=== PATIENT | female | born 1950 | race Caucasian/White ===

== ENCOUNTER 2017-01-14 18:51 | Inpatient (IN) ==
[2017-01-14] MEDS ORDERED: PROPOFOL 1,000 MG/100 ML BOTTLE IV ONE (18:55)
[2017-01-14] MEDS ORDERED: VECURONIUM 10 MG VIAL IV ONE (18:58)
[2017-01-14] MEDS ORDERED: VECURONIUM 10 MG VIAL IV STA (19:01)
[2017-01-14] MEDS ORDERED: DILTIAZEM 50 MG/10 ML VIAL IV STA (19:19)
--- NOTE | 2017-01-14 19:21 | Emergency Department Note ---
IDaniel Kasabria, am scribing for, and in the presence of, Lauren Ye DO 19 :19. IEphraim Debra, DO, personally performed the services described in this documentation, ascribed by Dawit Sanchez in my presence, and it is both accurate and complete 920 . Arrival - Arrival Chief Complaint: Shortness of Breath Stated Complaint: sob ED Nursing Triage Note: pt brought in to [facility] for resp distress. pt went into resp failure in their er and was intubated with a 7.0 ett and 24 at lip Mode of Arrival: Stretcher Limitations: No Limitations Source: Patient Time Seen by Provider: 01/14/17 18:59 - History of Present Illness HPI Narrative: This is a 66 y/o white female presenting to the ED with c/o respiratory distress. She stated to ER nurses that she had been short of breath for one week. Pt went into respiratory failure in the [place] ER and was intubated. Pt is currently sedated. She has a PMHx of HTN, Atrial fibrillation, COPD, CHF, and cardiac disease. She was seen at [facility]. Consistency: constant Severity: moderate Allergies/Adverse Reactions: Allergies Allergy/AdvReac Type Severity Reaction Status Date / Time Iodinated Contrast Media - Allergy ITCHING Verified 01/14/17 19:10 IV Dye moxifloxacin Allergy ITCHING Verified 01/14/17 19:10 Penicillins Allergy ITCHING Verified 01/14/17 19:10 Sulfa (Sulfonamide Allergy ITCHING Verified 01/14/17 19:10 Antibiotics) sulfamethoxazole Allergy ITCHING Verified 01/14/17 19:10 trimethoprim Allergy ITCHING Verified 01/14/17 19:10 Review of System - Review of System ROS unobtainable: due to endotracheal tube (limited ) 12 point system: reviewed and no additional remarkable complaints except as stated - Review of System Constitutional: Absent: chills, fever, weakness Eyes: Absent: vision change Respiratory: Present: respiratory distress Gastrointestinal: Absent: nausea, vomiting Genitourinary female: Absent: dysuria Skin: Present: other (poor hygiene ). Absent: rash Hematological/Lymphatic: Absent: easy bleeding Allergic/Immunologic: Absent: facial swelling Medical,Surgical,& Family Hx - Social History Smoking Status: Unknown if ever smoked Frequency of Alcohol Use: Unknown Type of Drug Use: Unknown Exam Vital Signs: Vital Signs Temperature 98.1 F 01/14/17 18:52 Pulse Rate 86 01/14/17 19:29 Respiratory Rate 14 01/14/17 19:29 Blood Pressure 101/78 01/14/17 19:29 O2 Sat by Pulse Oximetry 92 L 01/14/17 19:29 - General Exam limited due to: other (sedated and intubated ) General appearance: alert, in no apparent distress, other (poor hygiene ) - Head Head exam: Present: atraumatic, normocephalic, normal inspection - Eye Eye exam: Present: normal appearance, PERRL, EOMI - ENT ENT exam: Present: normal exam, normal oropharynx, mucous membranes moist, TM's normal bilaterally, normal external ear exam - Neck Neck exam: Present: normal inspection, full ROM, trachea midline. Absent: tenderness - Chest Chest inspection: Present: normal inspection, symmetric chest wall rise. Absent : tenderness - Respiratory Respiratory exam: Present: normal lung sounds bilaterally - Cardiovascular Cardiovascular exam: Present: regular rate, normal rhythm, normal heart sounds - Abdominal Exam Abdominal exam: Present: soft, normal bowel sounds. Absent: distention, tenderness - Extremities Exam Extremities exam: Present: normal inspection, full ROM, normal capillary refill. Absent: tenderness, pedal edema, calf tenderness - Back Exam Back exam: Present: normal inspection, full ROM. Absent: tenderness - Neurological Exam Neurological exam: Present: alert, oriented X3, CN II-XII intact, normal gait, reflexes normal - Psychiatric Psychiatric exam: Present: normal affect, normal mood - Skin Skin exam: Present: warm, dry, intact, normal color Course Course Narrative: spoke with DR Anderson. who agrees to admission. Results - EKG EKG results: interpreted by ERMD EKG shows: atrial fibrillation Disposition Clinical Impression: Acute exacerbation of chronic obstructive airways disease Disposition: Still a Patient Condition: Stable Time of Disposition: 19:37
[2017-01-14] MEDS ORDERED: ALBUTEROL 2.5 MG/3 ML NEB RESP TX PRN ×2 (19:39→23:01)
--- NOTE | 2017-01-14 19:54 | Hospitalist History & Physical ---
Assessment and Plan (1) Acute respiratory failure Status: Acute Assessment and plan: This is a patient who presented with acute respiratory failure of unknown etiology she certainly has a COPD exacerbation I have no data available to make any further determination was going on have no available chest x-ray and no other testing will begin a workup looking for cardiac disease who rule out MS we will look for color-flow venous Dopplers will proceed with chest x-ray and arterial blood gases. Patient does currently remain hemodynamically stable Current Visit: Yes History of Present Illness Chief complaint: acute respiratory failure History of present illness: Ms. Rivers is a 66 year old female whose never been to this facility before who presents with several day history of some allergy symptoms yesterday she started feeling poorly this morning she went back to bed cauterized in the semen since she needed to go to the hospital she couldn't get down the stairs when the EMS people arrived her house she was having difficulty breathing. She couldn't walk very anxious according to the . When she arrived at [facility] she had to be intubated. She can give no further history her says that she wasn't really complaining of chest pain or chest tightness and had not had any fever or other unusual complaints other than she was a little bit more short of breath than usual. Currently there is no lab or other tests done here in [facility] in reviewing the record from the outside white count was 8000 hematocrit 39 platelet count 103,000 had a left shift with 76% neutrophils arterial blood gases as seen on the ventilator are 10/26/1939 57.21B UN is 17.3 creatinine 1.1 there are test are normal albumin is 3.6 EKG shows atrial fibrillation with left bundle branch block Allergies Allergy/AdvReac Type Severity Reaction Status Date / Time Iodinated Contrast Media - Allergy ITCHING Verified 01/14/17 19:10 IV Dye moxifloxacin Allergy ITCHING Verified 01/14/17 19:10 Penicillins Allergy ITCHING Verified 01/14/17 19:10 Sulfa (Sulfonamide Allergy ITCHING Verified 01/14/17 19:10 Antibiotics) sulfamethoxazole Allergy ITCHING Verified 01/14/17 19:10 trimethoprim Allergy ITCHING Verified 01/14/17 19:10 Medical,Surgical,& Family Hx - Medical History Cardio: History of: Cardiac Dysrhythmia (atrial fibrillation), CHF, Cardiovascular Problems Endocrine: History of: Diabetes Mellitus (IDDM) Respiratory: History of: COPD - Surgical History Surgical History: noncontributory - Family History Family History: Reports;: Family Hypertension - Social History Smoking Status: Unknown if ever smoked Frequency of Alcohol Use: Unknown Type of Drug Use: Unknown ROS unobtainable: due to endotracheal tube Exam - Constitutional Vitals: Period Temp Pulse Resp BP Sys/Johnson Pulse Ox Last 24 Hr 98.1 F 80-132 14-14 101-128/77-91 91-100 Exam: Constitutional: Patient in no apparent distress. ET tube in place Eyes: Conjunctivae and lids are normal Pupils equal round react to light and accommodation irises are normal HEENT: External ears and nose without lesions masses or scarring Oropharynx without erythema exudates or thrush Neck is supple without masses no jugular venous distention Lungs: Lungs are clear to auscultation and resonant percussion Cardiovascular: Heart auscultation regular rate and rhythm without murmur rub or gallop PMI in the midclavicular line by palpation carotid arteries 2+ without bruits bowel abdomen: Bowel sounds normoactive no masses no rebound or regular tenderness no organomegaly Lymphatic: No anterior posterior cervical or axillary adenopathy Musculoskeletal: No active synovitis no malalignment of the joints good range of motion of upper and lower extremities Skin : normal to inspection and palpation Neurologic: Cranial nerves II through XII intact motor sensory intact DTRs 2+ negative cerebellar signs Psychiatric: Oriented to person place and time normal memory normal mood and affect normal judgment
[2017-01-14] MEDS ORDERED: ENOXAPARIN 40 MG/0.4 ML SYRINGE SUBCUT SCH (20:00)
[2017-01-14 20:24] LABS: ABG Base Excess 1.7 MMOL/L (-2.5-2.5); ABG HCO3 24.1 MMOL/L (20-26); ABG Oxygen Saturation 98.2 % (95-100); ABG PH 7.508 (7.35-7.45); ABG PO2 116.6 MM HG (80-95)
--- NOTE | 2017-01-14 20:41 | Ultrasound Report ---
US venous doppler LE BI Indication: Respiratory failure. Comparison: None. Technique: Grayscale, spectral, and color Doppler interrogation of the bilateral lower extremity veins was performed. Augmentation and compression was performed. Findings: Grayscale, color Doppler, and pulsed Doppler evaluation of the veins of the bilateral lower extremity demonstrate no evidence of deep venous thrombosis. IMPRESSION: No evidence of deep venous thrombosis in the bilateral lower extremity. PROCEDURE INTERPRETED AT [facility] DEPARTMENT OF RADIOLOGY Final Report Signed by: Dr Marcial Lr
[2017-01-14] MEDS ORDERED: FUROSEMIDE 40 MG/4 ML VIAL IV STA (20:46)
--- NOTE | 2017-01-14 20:48 | XRay Report ---
XR chest 1V portable Indication: Ventilator Comparison: Chest x-ray dated January 14, 2017 at 4:48 PM Technique: Single frontal view of the chest Findings: Endotracheal tube stable in configuration. Continued cardiomegaly and prominence of the superior mediastinum. Continued coarsened bilateral interstitial lung markings which are nonspecific but may reflect interstitial pulmonary edema. Osseous and surrounding soft tissue structures appear grossly unchanged. IMPRESSION: No significant interval change. PROCEDURE INTERPRETED AT [facility] DEPARTMENT OF RADIOLOGY Final Report Signed by: Dr Marcial Lr
[2017-01-14 21:06] LABS: Troponin I Only 0.362 NG/ML (0.00-0.045)
[2017-01-14] MEDS: PROPOFOL 1,000 MG/100 ML BOTTLE IV SCH (21:10)
--- NOTE | 2017-01-14 22:55 | CT Report ---
CT head/brain wo con Indication: Respiratory failure, AMS Comparison: None Technique: Multiple axial tomographic images of the brain were obtained without the use of intravenous contrast. Findings: Midline structures are nondisplaced. There is no acute intracranial hemorrhage or evidence of hydrocephalus. Mild global volume loss present. Mild periventricular and subcortical hypoattenuation noted which is nonspecific but consistent with chronic microvascular ischemic change. Paranasal sinuses and mastoid air cells are clear. IMPRESSION: No acute intracranial abnormality demonstrated. PROCEDURE INTERPRETED AT [facility] DEPARTMENT OF RADIOLOGY Final Report Signed by: Dr Marcial Lr
[2017-01-14] MEDS ORDERED: ONDANSETRON 4 MG/2 ML VIAL IV PRN (23:01)
[2017-01-14] MEDS: PANTOPRAZOLE 40 MG VIAL IV SCH (23:27)
[2017-01-14] MEDS: methylPREDNISolone SOD SUC 125 MG/2 ML VIAL IV SCH (23:28)
[2017-01-14] MEDS: LACTATED RINGERS 1,000 ML IV SCH (23:38)
[2017-01-15] MEDS: ALBUTEROL/IPRATROPIUM 3 ML NEB RESP TX SCH ×4 (00:06→19:14)
[2017-01-15] MEDS: cefTRIAXone 1,000 MG in SODIUM CHLORIDE 0.9% 100 ML IV SCH ×2 (00:15→22:10)
[2017-01-15 00:44] LABS: Troponin I Only 0.356 NG/ML (0.00-0.045)
[2017-01-15 02:03] LABS: Apearance,Urine CLEAR (Clear); Bilirubin,Urine Negative (Negative); Blood, Urine Negative (Negative); Glucose,Urine (UA) Negative (Negative); Hyaline Casts,Urine 1 /LPF (0-3); Ketones,Urine Negative (Negative); Mucus,Urine Occasional /LPF (Occasional); Nitrite,Urine Negative (Negative); Protein,Urine Negative; Urine Color Straw (Yellow); Urine Specific Gravity 1.005 (1.001-1.035); Urine Urobilinogen < 2.0 EU/DL (0.2-1.0)
[2017-01-15 02:56] LABS: Allen Test Positive; Pt O2 Delivery Device Ventilator
[2017-01-15 02:57] LABS: ABG Base Excess 4.1 MMOL/L (-2.5-2.5); ABG HCO3 26.5 MMOL/L (20-26); ABG Oxygen Saturation 97.1 % (95-100); ABG PCO2 32.7 MM HG (35-48); ABG PH 7.527 (7.35-7.45); ABG TCO2 27.5 MMOL/L (23-27)
[2017-01-15] MEDS: PROPOFOL 1,000 MG/100 ML BOTTLE IV SCH ×5 (03:15→20:25)
--- NOTE | 2017-01-15 05:48 | EKG Report ---
Stationary ECG Study [facility] ER Test Date: 01/14/2017 8:01:46 PM Pat Name: MEERA ANTOINE Department: Room: 116 Gender: F Community Health Nurse: : 1950 Requested by: Lauren Ye Order Number: [id number] Reading MD: ISABELLE VALENTINE Intervals [place] Rate: 59 P: 43 ND: 174 QRS: 23 QRSD: 154 T: 142 QT: 464 QTc: 463 Interpretive Statements SINUS RHYTHM WITH OCCASIONAL SUPRAVENTRICULAR PREMATURE COMPLEXES LEFT BUNDLE BRANCH BLOCK Electronically Signed On 01-16-17 18:49:54 CDT by ISABELLE VALENTINE [email or web address]
[2017-01-15] MEDS: methylPREDNISolone SOD SUC 125 MG/2 ML VIAL IV SCH ×3 (06:10→22:10)
[2017-01-15] MEDS: NOREPINEPHRINE 8 MG in SODIUM CHLORIDE 0.9% 242 ML IV SCH ×2 (06:10→22:11)
[2017-01-15 07:07] LABS: Basophils % 0.1 % (0.0-0.8); Hematocrit 36.3 VOL% (35.7-47.0); Hemoglobin 11.9 GM/DL (12.0-16.0); Immature Granulocytes % 0.7 %; Immature Granulocytes Absolute 0.06 #; Lymphocytes # 0.5 10*3/uL (1.4-4.0); Lymphocytes % 5.9 % (21.3-54.2); Mean Corpuscular HGB Conc 32.8 GM/DL (32-36); Mean Corpuscular Hemoglobin 30 PG (27-34); Mean Corpuscular Volume 92.4 FL (87-102); Mean Platelet Volume 11.3 FL (9.6-12.0); Monocytes # 0.2 10*3/uL (0.11-0.8); Monocytes % 2.3 % (1.7-12.7); Neutrophils # 7.6 10*3/uL (1.4-7.4); Platelet Count 90 T/CUMM (130-400); Red Blood Count 3.93 MC/CUMM (3.8-5.5); White Blood Count 8.4 T/CUMM (4-12)
--- NOTE | 2017-01-15 07:17 | XRay Report ---
Portable chest Date: 01/15/2017 Clinical history: Shortness of breath Comparison: 01/14/2017 Technique: Portable AP sitting chest Findings: Stable cardiomegaly and endotracheal tube. Reduced diffuse parenchymal findings in the right lung with similar minimally progressive findings in the left mid-lower lung zone. Stable mediastinum and osseous structures. Impression: The endotracheal tube remains in satisfactory position. Minimally reduced edema/infiltration in the right lung with similar minimally progressive findings in the left mid to lower lung zone. PROCEDURE INTERPRETED AT [facility] DEPARTMENT OF RADIOLOGY Final Report Signed by: Dr. Lorenza Zambrano
[2017-01-15 07:31] LABS: Hypochromasia 1+; Lymphocytes 4 % (20-55); Ovalocytes Slight; Platelet Estimate Decreased; Segmented Neutrophils 95 % (50-85); Total Cells Counted 100
[2017-01-15 07:45] LABS: Bilirubin,Total 1.4 MG/DL (0.2-1.0); Calcium 7.6 MG/DL (8.5-10.1); Osmolality,Calculated 294.6 MOS/KG (273-304); Potassium 3.9 MMOL/L (3.5-5.1); Risk Ratio 2.4; Total Protein 5.7 G/DL (6.4-8.3); VLDL CHOLESTEROL 20.2 MG/DL
[2017-01-15 08:03] LABS: Troponin I Only 0.224 NG/ML (0.00-0.045)
[2017-01-15] MEDS ORDERED: ENOXAPARIN 40 MG/0.4 ML SYRINGE SUBCUT SCH ×2 (08:15→08:30)
[2017-01-15] MEDS ORDERED: diphenhydrAMINE 50 MG/1 ML VIAL IV ONE (08:57)
[2017-01-15] MEDS ORDERED: FUROSEMIDE 40 MG/4 ML VIAL IV SCH (09:00)
[2017-01-15 09:15] LABS: Pt O2 Delivery Device Ventilator
[2017-01-15 09:16] LABS: ABG Base Excess 2.6 MMOL/L (-2.5-2.5); ABG HCO3 26.8 MMOL/L (20-26); ABG Oxygen Saturation 98.3 % (95-100); ABG PCO2 35.3 MM HG (35-48); ABG PH 7.474 (7.35-7.45); ABG TCO2 22.8 MMOL/L (23-27)
[2017-01-15] MEDS: CARVEDILOL 12.5 MG TABLET PO SCH ×2 (09:43→22:09)
[2017-01-15] MEDS: LOSARTAN 25 MG TABLET PO SCH (09:43)
[2017-01-15] MEDS: ASPIRIN 325 MG TABLET PO SCH (09:43)
[2017-01-15 09:45] LABS: Troponin I Only 0.194 NG/ML (0.00-0.045)
[2017-01-15] MEDS: FONDAPARINUX 7.5 MG/0.6 ML SYRINGE SUBCUT SCH (09:47)
--- NOTE | 2017-01-15 10:33 | Pulmonology Consult Note ---
History of Present Illness Chief complaint: Ventilator. Acute respiratory arrest History of present illness: Ms. Rivers is a 66 year old white female from [place] whom I been asked to see in pulmonary consultation for evaluation, treatment and management of mechanical ventilation. This patient has never been to [facility] that we are aware of. She has had some progressive shortness of breath. She was too short of breath to walk down the steps in her house. She was being taken to the hospital by emergency services and stopped at another hospital and was treated including intubation. Other than the shortness of breath is not a lot known about her recent review of systems. She is presently sedated and on mechanical ventilation therefore the remainder of the review of systems are negative at this point. Allergies. See below Home medicines. See below Past history. Cholecystectomy. Thyroid surgery. Patient receives activity of daily living services. There is a history of asthma. She takes Plaquenil so she may have underlying collagen vascular disease. Her chest x-ray shows large potato nodes and she is on steroids so she may have sarcoidosis. There is a history of atrial fibrillation and also of insulin-dependent diabetes mellitus. She is listed as having a history of COPD. There appears to be a history of depression and high blood pressure. Social history. Patient is . Outside hospital records say there was a history of tobacco abuse. This has not been confirmed. Family history. Known to be hot positive for high blood pressure EKG. 01/14/2017. Sinus bradycardia with borderline first-degree block. Left bundle branch block. Decreased voltage. Doppler venograms of the lower extremities. 01/14/2017. No evidence of deep venous thrombophlebitis. Chest x-ray. 01/14/2017. Cardiomegaly. Bilateral potato nodes. Endotracheal tube is in good position. Generalized increased interstitial markings that tend to be perihilar and right lower lung. Suspect there is an element of congestive heart failure no may be a right lower lung pneumonia Chest x-ray. 01/15/2017. Cardiomegaly. Bilateral potato nodes. Endotracheal tube is in good position. Increased interstitial markings in all 5 lobes of the lung but most prominent perihilar location. No definite infiltrates. Cannot rule out mild congestive heart failure ABGs. Mechanical ventilation. FiO2 50%. PH is 7.47, PCO2 is 35.3, PO2 is 106 , bicarb is 26.8. Lab. Electrolytes normal. Creatinine is 1.0. BUN is 21. Calcium is low at 7.6. AST is elevated at 166. ALT is elevated at 178. Alkaline phosphatase is normal at 82. Total bilirubin is 1.40. Admit troponins are 0.356. Admit natruretic peptide is 605 and follow-up BNP is 546. Total protein is low at 5.7. Albumin is low at 3.0. Globulin is normal at 2.7. Urinalysis shows no evidence of infection. White blood cell count is 8400 with 91% segs. H&H 11.9/ 36.3 with normal indices. Platelet count is low at 90,000. Physical exam. Vital signs. See below Neurologic. Patient is sedated. Pupils irises sclera conjunctiva eyelids are normal. Face is symmetrical. Salivary glands are normal. Lips and tongue appear to be normal. Neck. Symmetrical. No mass. No meningismus. Thyroid was not palpated noted past history of thyroid surgery Lymphatics. No submandibular cervical supraclavicular clavicular epitrochlear adenopathy. Arterial. Carotid upstroke is fair. I do not hear any bruits. Upper extremity pulses are present. Lower extremity pulses are not palpable. No evidence of lower extremity ischemia. Venous exam. Neck upper and lower extremities appear to be normal. Chest. Slight large airway congestion. I do not hear any wheezing. Heart. I do not hear a gallop or murmur. Abdomen. Obese. Rare bowel sounds. Lower extremities. No evidence of deep venous thrombophlebitis. Elastic toe protector on left foot Note the Doppler venograms of lower extremities are negative for deep venous thrombophlebitis. 01/14/2017. Skin. No cancers or infectious lesions seen on the face or the hands. No other areas of skin were examined. Note toe protector on the left foot. The remainder the exam was noncontributory. Impression. 1. Acute respiratory arrest requiring intubation mechanical ventilation. Etiology is undetermined. The patient takes losartan. I do not see any evidence of angioedema. There is a history of asthma. Presently the patient is wheeze free. She has elevated BNP and chest x-ray shows increased interstitial markings which may be secondary to congestive heart failure. Note that the patient may have underlying sarcoidosis. So far there is no definite pneumonia seen on chest x-ray. 2. History of atrial fib and possible history of heart disease 3. Bilateral hilar lymph node enlargement. This has the appearance of so- called "potato nodes". This is probably sarcoidosis and may explain some increased interstitial markings. Keep in mind other possibilities. 4. History of asthma 5. History of depression 6. History of high blood pressure 7. Elevated liver function test etiology undetermined 8. Previous cholecystectomy 9. Past history of thyroid surgery 10. See past history Plan. 1. Echocardiogram. 2. Cardiology consultation 3. Agree with protocol antibiotics 4. Agree with steroids. 5. Daily chest x-ray, ABGs, lab 6. Mechanical ventilation weaning protocol 7. Physical therapy protocol while on mechanical ventilation. 8. Deep venous thrombophlebitis prevention protocol. 9. Proton pump inhibitor protocol. 10. See order Home Medications Medication Instructions Recorded Confirmed Type Albuterol Sulfate [Proair HFA] 90 mcg PO DIRECTED 01/14/17 01/14/17 History Carvedilol [Coreg] 12.5 mg PO BID 01/14/17 01/14/17 History Diazepam Tab [Valium Tab] 10 mg PO DAILY 01/14/17 01/14/17 History Duloxetine HCl [Cymbalta] 60 mg PO DAILY 01/14/17 01/14/17 History Eszopiclone [Lunesta] 1 mg PO DAILY 01/14/17 01/14/17 History Fluconazole 200 mg PO DAILY 01/14/17 01/14/17 History HYDROcodone/ACETAMIN 10-325 [Jakin 10 - 325 mg PO BID 01/14/17 01/14/17 History 10-325] Hydroxychloroquine [Plaquenil] 200 mg PO DAILY 01/14/17 01/14/17 History Losartan Potassium 12.5 mg PO DAILY 01/14/17 01/14/17 History Oxybutynin Chloride [Oxybutynin 10 mg PO DAILY 01/14/17 01/14/17 History Chloride ER] Pregabalin [Lyrica] 75 mg PO TID 01/14/17 01/14/17 History predniSONE TAB [PredniSONE] 20 mg PO QOTHER DAY 01/14/17 01/14/17 History traZODone [Desyrel] 50 mg PO BEDTIME 01/14/17 01/14/17 History Allergies Allergy/AdvReac Type Severity Reaction Status Date / Time Iodinated Contrast Media - Allergy ITCHING Verified 01/14/17 19:10 IV Dye moxifloxacin Allergy ITCHING Verified 01/14/17 19:10 Penicillins Allergy ITCHING Verified 01/14/17 19:10 Sulfa (Sulfonamide Allergy ITCHING Verified 01/14/17 19:10 Antibiotics) sulfamethoxazole Allergy ITCHING Verified 01/14/17 19:10 trimethoprim Allergy ITCHING Verified 01/14/17 19:10 Exam (Pulmonay) H&P - Constitutional Vitals: Period Temp Pulse Resp BP Sys/Johnson Pulse Ox Last 24 Hr 98.2 F-98.8 F 65-87 12-18 112-161/77-104 91-100 Medical,Surgical,& Family Hx - Medical History Cardio: History of: Cardiac Dysrhythmia (atrial fibrillation), CHF, Cardiovascular Problems Endocrine: No history of: Diabetes Mellitus (IDDM) Rheumatology: History of;: Rheumatological Problems ( states she has lupus) Respiratory: History of: COPD - Surgical History Orthopedic Surgeries: Surgical HX of;: Orthopedic Surgery (knee surgery in 2011) - Family History Family History: Reports;: Family Hypertension - Social History Smoking Status: Unknown if ever smoked Frequency of Alcohol Use: Occasionally Type of Drug Use: Unknown Results - Labs CBC & BMP: 01/15/17 06:53 01/15/17 06:53
--- NOTE | 2017-01-15 10:44 | Pulmonology Progress Note ---
Exam (Progress Note) - Constitutional Vitals: Period Temp Pulse Resp BP Sys/Johnson Pulse Ox Last 24 Hr 98.2 F-98.8 F 65-87 12-18 112-161/77-104 91-100 Results - Labs CBC & BMP: 01/15/17 06:53 01/15/17 06:53
[2017-01-15 10:50] LABS: Free T4 (Free Thyroxine) 1.61 NG/DL (0.76-1.46); Thyroid Stimulating Hormone 0.417 uIU/ml (0.358-3.74)
--- NOTE | 2017-01-15 11:16 | CT Report ---
History: Progressive shortness of breath. Acute respiratory arrest Date: 01/15/2017 Study: CT chest with IV contrast with pulmonary embolus technique Comparison exam: No previous Spiral CT sections were obtained through the lungs following the IV administration of 80 mL of Omnipaque 350 without immediate complication. Multiplanar reconstruction images were also evaluated. The CT exam was performed using one or more of the following dose reduction techniques: Automated exposure control, adjustment of the mA and/or kV according to patient size, or use of iterative reconstruction technique. Total DLP measures 398.4 mGy*cm. The endotracheal tube is well-positioned within the trachea at the level of the aortic arch, superior to the ronnie. The nasogastric tube is positioned with its tip in the lumen of the stomach. There is no discrete filling defect within the pulmonary arterial tree to suggest acute pulmonary embolic disease. There is no thoracic aortic aneurysm. There is mild to moderate bilateral pleural effusion. There is mild mediastinal lymphadenopathy with an 11 mm AP window lymph node and smaller lower right paratracheal nodes. There is atelectatic parenchymal consolidation in the lower lobes. Spondylotic changes of the spine are present. There is a small exophytic left renal lesion measuring 9.3 mm at the superior pole of the partially visualized left kidney. Impression: No evidence of acute pulmonary embolic disease Dependent atelectatic parenchymal consolidation in either lower lobe. Small to moderate left greater than right pleural effusion. Nonspecific mild mediastinal lymphadenopathy. The supporting tubes are in satisfactory position. Small exophytic renal mass or cyst at the upper pole of the left kidney, measuring 9 mm. Targeted renal sonography may provide clarification PROCEDURE INTERPRETED AT [facility] DEPARTMENT OF RADIOLOGY Final Report Signed by: Dr. Annette Rainey
[2017-01-15] MEDS: LACTATED RINGERS 1,000 ML IV SCH ×2 (12:42→21:15)
--- NOTE | 2017-01-15 13:57 | Hospitalist Progress Note ---
Assessment and Plan (1) Acute respiratory failure Status: Acute Assessment and plan: patient has a history of asthma, she presnted with SOB and allergic symptoms and was subsequently intubated. CT chest showed no evidence of PE but a dependent atelectatic parenchymal consolidation in either lower lobe. Small to mederate left greater than right pleural effusion Pulm is following. Plan Continue with vent support, IV steroids, nebs treatment Follow Pulm's recommendations add IV doxycycline to Rocephin follow cultures -will get influenza A and B levels -Follow Echo Current Visit: Yes (2) Elevated troponin Status: Acute Assessment and plan: troponin level is trending downwards, Cardiology is following,continue current regime. Follow Echo Current Visit: Yes (3) History of atrial fibrillation Status: Acute Assessment and plan: rate is controlled. She is currently in sinus. Follow Cardiology's recommendations Current Visit: Yes (4) Diabetes Status: Acute Assessment and plan: Blood sugar is decent, continue current regime. Will get HbA1c level, Lipids, TSH Current Visit: Yes (5) Hypertension Status: Acute Assessment and plan: controlled on home meds Current Visit: Yes (6) History of depression Status: Acute Assessment and plan: will resume home meds when stable. Current Visit: Yes (7) Elevated liver enzymes Status: Acute Assessment and plan: aetiology is unclear. plan Right upper quadrant ultrasound hepatitis panel repeat levels in am, avoid hepatotoxics. Current Visit: Yes (8) CHF (congestive heart failure) Status: Acute Assessment and plan: acute on chronic systolic failure Echo showed mildly to mederately increased left ventricular cavity size. Mild left ventricular hypertrophy. EF-30-40% moderately increased septal thickness. continue with ASA,Coreg, losartan and IV Lasix -follow Cardiology's recommendations Current Visit: Yes (9) Thrombocytopenia Status: Acute Assessment and plan: Reason for using Arixtra instead of Lovenox. We will continue to monitor level. ? sec to Liver disease, follow Liver work-up. Current Visit: Yes (10) History of thyroid surgery Status: Acute Assessment and plan: follow TSH, t3 and T4 levels Current Visit: Yes Hospitalist: Subjective Interval history: Patient seen.Troponin was noted to be elevated,CT chest showed no evidence of PE but a dependent atelectatic parenchymal consolidation in either lower lobe. Small to mederate left greater than right pleural effusion. Exam - Constitutional Vitals: Period Temp Pulse Resp BP Sys/Johnson Pulse Ox Last 24 Hr 97.7 F-98.8 F 62-87 12-18 112-167/77-104 91-100 General appearance: no acute distress, other (intubated and sedated) - Respiratory Respiratory exam: Present: clear to auscultation bilaterally - Cardiovascular Cardiovascular exam: Present: regular rate and rhythm - GI/Abdominal GI/Abdominal exam: Present: normal bowel sounds - Extremities Exam Extremities exam: Present: normal inspection - Neurological Exam Neurological exam: Present: other (sedated) Results - Labs CBC & BMP: 01/15/17 06:53 01/15/17 06:53 Lab Results: I have reviewed the past 24 hour labs
--- NOTE | 2017-01-15 14:29 | ECHO Report ---
Candy Rivers Exam Date: 01/15/2017 08:54 Referring Physician: Technologist: Halima Dickinson RDCS Age: 66 Ht (in): 66 Wt (lb): 233 Gender: F Exam Location: [facility] Echo Indications: Acute respiratory failure, unspecified whether with hypoxia or hypercapnia, COPD, Shortness of breath, IDDM BP: 152 / 96 HR: 72 Rhythm: Sinus with LBBB Technical Quality: Good IMPRESSIONS Mildly to moderately increased left ventricular cavity size. Mild left ventricular hypertrophy. Left ventricular ejection fraction is estimated at 30- 40 %. Moderately increased upper septal thickness. Moderately increased right atrial size. Moderately increased left atrial size. Mild mitral valve regurgitation. Aortic valve sclerosis without stenosis. Moderate aortic valve regurgitation. Mild tricuspid valve regurgitation. Tricuspid regurgitation velocities suggest a PAP of 52 mmHg. Trace pulmonary valve regurgitation. MEASUREMENTS (Male / Female) Normal Values 2D ECHO LV Diastolic Diameter PLAX 6.1 cm 4.2 - 5.9 / 3.9 - 5.3 cm LV Systolic Diameter PLAX 4.9 cm LV Fractional Shortening PLAX 20.5 % IVS Diastolic Thickness 1.1 cm 0.6 - 1.0 / 0.6 - 0.9 cm LVPW Diastolic Thickness 1.1 cm 0.6 - 1.0 / 0.6 - 0.9 cm RV Internal Dim ED PLAX 3.1 cm Aortic Root Diameter 3.6 cm LA Systolic Diameter LX 5.0 cm 3.0 - 4.0 / 2.7 - 3.8 cm DOPPLER TR Peak Velocity 324.0 cm/s TR Peak Gradient 42.0 mmHg FINDINGS Left Ventricle Mildly to moderately increased left ventricular cavity size. Mild left ventricular hypertrophy. Left ventricular ejection fraction is estimated at 30- 40 %.moderately increased upper septal thickness. Right Ventricle The right ventricle is normal in size and function. Right Atrium Moderately increased right atrial size. Left Atrium Moderately increased left atrial size. Mitral Valve Morphologically normal mitral valve. Mild mitral annular calcification. Mild mitral valve regurgitation. Aortic Valve Aortic valve sclerosis without stenosis. moderate aortic valve regurgitation. Tricuspid Valve Morphologically normal tricuspid valve. Mild tricuspid valve regurgitation. Tricuspid regurgitation velocities suggest a PAP of 52 mmHg. Pulmonic Valve Morphologically normal pulmonic valve. Trace pulmonary valve regurgitation. Pericardium Normal pericardium without effusion. Aorta Normal ascending aorta dimension. Fransico Eller MD (Electronically Signed) Final Date: 15 January 2017 14:29
[2017-01-15] MEDS: DOXYCYCLINE HYCLATE INJ 100 MG in SODIUM CHLORIDE 0.9% 100 ML IV SCH (15:38)
[2017-01-15] MEDS: FUROSEMIDE 40 MG/4 ML VIAL IV SCH (15:50)
[2017-01-15 16:09] LABS: Hepatitis A Ab IgM Quant 0.15 Index; Hepatitis A Ab IgM Result Negative (Negative); Hepatitis B Core IgM Quant 0.15 Index; Hepatitis B Core IgM Result Negative (Negative); Hepatitis B Surface Ag Quant < 0.10 Index; Hepatitis B Surface Ag Result Negative (Negative); Hepatitis C Virus Ab Quant 0.12 Index; Hepatitis C Virus Ab Result Negative (Negative)
--- NOTE | 2017-01-15 16:28 | Ultrasound Report ---
History abnormal liver enzymes, left renal nodule on CT The liver is 17.1 cm in length. Echotexture is normal Patient appears to be status post cholecystectomy No biliary ductal dilatation is seen Spleen is normal in size Visualized pancreas IVC and aorta are normal in size Left pleural effusion noted during the procedure No renal hydronephrosis is seen bilaterally There is a 1.0 cm cyst at the upper pole of the left kidney Impression: 1. Tiny left renal cyst 2. Apparent prior cholecystectomy 3. small left pleural effusion The Ultrasound images were captured and stored. PROCEDURE INTERPRETED AT [facility] DEPARTMENT OF RADIOLOGY Final Report Signed by: Dr. Netta Smtih
--- NOTE | 2017-01-15 17:14 | Cardiology Consult Note ---
I, Shawanda Ocampo RN, am scribing for, and in the presence of, Fransico Eller MD 17:09. Assessment and Plan - Time spent with patient Time spent with patient: Greater than 30 minutes (due to assessment, planning, documentation, med review) (1) Heart failure, systolic and diastolic, acute on chronic Status: Acute Assessment and plan: Her respiratory failure is probably predominantly due to heart failure, I suspect probably systolic and diastolic. her franklin zone troponin I suspect is not reflected an TN or ACS but her heart failure. There is a question of pneumonia, although Dr. Burrows does not think so. Her elevated LFTs may be from right heart congestion from the heart failure plan/recommendation: In the course of the evaluation, it was decided the patient needed to have an echocardiogram for the pts management. It was ordered. I will review it.. Serial CMP to watch LFTs. EKG in the a.m. Serial troponins. CMP in morning. She is on carvedilol and losartan-I agree with these. Will add some spironolactone. Agree with treating for infection with antibiotics for now. Prognosis remains guarded. I will follow along with. Thank you for allowing me to participate in this patient's care Current Visit: Yes (2) Acute respiratory failure Status: Acute Current Visit: Yes (3) Hypertension Status: Acute Current Visit: Yes (4) Diabetes Status: Acute Current Visit: Yes (5) COPD (chronic obstructive pulmonary disease) Status: Acute Current Visit: Yes (6) History of atrial fibrillation Status: Acute Current Visit: Yes (7) History of depression Status: Acute Current Visit: Yes (8) Pneumonia Status: Acute Current Visit: Yes (9) Elevated LFTs Status: Acute Current Visit: Yes (10) Sarcoidosis Status: Acute Current Visit: Yes (11) Sarcoidosis of lung Status: Acute Current Visit: Yes (12) Lymphadenopathy Status: Acute Current Visit: Yes (13) Type 2 diabetes mellitus Status: Acute Current Visit: Yes (14) Elevated brain natriuretic peptide (BNP) level Status: Acute Current Visit: Yes (15) CHF (congestive heart failure) Status: Acute Current Visit: Yes (16) Elevated liver enzymes Status: Acute Current Visit: Yes (17) Elevated troponin Status: Acute Current Visit: Yes History of Present Illness - Data of Consult Patient: new to practice Consult date: 01/15/17 Requesting Physician: Coby Francis - Consult Narrative Reason for consult: acute resp failure, HTN, r/o PE; hx COPD History of present illness: Ms. Rivers is a 66 year old white female not routinely followed by cardiology at [facility]. Patient is currently intubated and sedated in the ICU. No family present at this time, and past medical history is taken from hospital records from outlying facility. Past medical history includes atrial fibrillation (sinus rhythm per EKG here at [facility]), CHF, hypertension, COPD, diabetes, and depression. She presented to [facility] emergency room in [place], [place], on the afternoon of 01/14/17 complaining of shortness of breath for 1 week. Apparently, oxygen saturation level was unable to be obtained, she was tachypneic, showing signs of decreased perfusion, and was urgently intubated there and transferred to [facility] for further treatment. She was admitted to the hospitalist service here with acute respiratory failure, and cardiology has now been consulted to see and evaluate patient and she has been found to have franklin zone troponin 0.356, has a history of hypertension, and is currently being evaluated to rule out PE. Patient seen and examined in ICU this morning. No family available at time of exam. Patient appears comfortable on the ventilator at this time with sedation. Venous Doppler ultrasound of bilateral lower extremities negative for findings of DVT. Head CT without acute abnormality seen. She will have CT chest later this morning to rule out possible PE. Chest x-ray upon admission yesterday with cardiomegaly and bilateral lungs with coarse interstitial markings possibly reflective of pulmonary edema. Chest x-ray today with improvement in right lung and slight progressive findings in mid-lower zone of left lung. Hypertensive with SBP 140-160 mmHg range and DBP 85-105 mmHg. Sinus rhythm per 12 lead EKG with pulse rate [address] segment change, LBBB noted. No atrial fibrillation since admission to [facility]. Labs reviewed. WBC normal. H/H stable at 11.9 & 36.4. Sodium is 146. Potassium is 3.9. Initial cardiac biomarkers in ER yesterday with troponin of 0.362 and normal CPK and CK-MB. Serial cardiac biomarkers have demonstrated downward trending franklin zone/flat troponin levels and most recent troponin at 0830 this morning is 0.194. LFT's elevated. Initial BNP level 606 and today 546. Allergies: IV Dye, moxifloxacin, PCN, sulfa, sulfamethoxazole, trimethoprim [ Bactrim]. Echocardiogram has been ordered and we will review this. CC: Coby Francis MD - Home Medications and Allergies Home Medications: Home Medications Medication Instructions Recorded Confirmed Type Albuterol Sulfate [Proair HFA] 90 mcg PO DIRECTED 01/14/17 01/14/17 History Carvedilol [Coreg] 12.5 mg PO BID 01/14/17 01/14/17 History Diazepam Tab [Valium Tab] 10 mg PO DAILY 01/14/17 01/14/17 History Duloxetine HCl [Cymbalta] 60 mg PO DAILY 01/14/17 01/14/17 History Eszopiclone [Lunesta] 1 mg PO DAILY 01/14/17 01/14/17 History Fluconazole 200 mg PO DAILY 01/14/17 01/14/17 History HYDROcodone/ACETAMIN 10-325 [[place] 10 - 325 mg PO BID 01/14/17 01/14/17 History 10-325] Hydroxychloroquine [Plaquenil] 200 mg PO DAILY 01/14/17 01/14/17 History Losartan Potassium 12.5 mg PO DAILY 01/14/17 01/14/17 History Oxybutynin Chloride [Oxybutynin 10 mg PO DAILY 01/14/17 01/14/17 History Chloride ER] Pregabalin [Lyrica] 75 mg PO TID 01/14/17 01/14/17 History predniSONE TAB [PredniSONE] 20 mg PO QOTHER DAY 01/14/17 01/14/17 History traZODone [Desyrel] 50 mg PO BEDTIME 01/14/17 01/14/17 History Allergies/Adverse Reactions: Allergies Allergy/AdvReac Type Severity Reaction Status Date / Time Iodinated Contrast Media - Allergy ITCHING Verified 01/14/17 19:10 IV Dye moxifloxacin Allergy ITCHING Verified 01/14/17 19:10 Penicillins Allergy ITCHING Verified 01/14/17 19:10 Sulfa (Sulfonamide Allergy ITCHING Verified 01/14/17 19:10 Antibiotics) sulfamethoxazole Allergy ITCHING Verified 01/14/17 19:10 trimethoprim Allergy ITCHING Verified 01/14/17 19:10 ROS unobtainable: due to endotracheal tube Medical,Surgical,& Family Hx - Medical History Medical History: noncontributory (All past medical history obtained from hospital records from outlying facility.) Cardio: History of: Cardiac Dysrhythmia (atrial fibrillation), CHF, Hypertension , Cardiovascular Problems Psychological: History of: Depression Rheumatology: History of;: Rheumatological Problems ( states she has lupus) Respiratory: History of: COPD - Surgical History Orthopedic Surgeries: Surgical HX of;: Orthopedic Surgery (knee surgery in 2011) - Family History Family History: Reports;: Family Hypertension - Social History Smoking Status: Unknown if ever smoked Frequency of Alcohol Use: Occasionally Type of Drug Use: Unknown Marital Status: Physical Examination Vital Signs Temp Pulse Resp BP Pulse Ox 98.1 F 132 H 14 128/91 100 01/14/17 18:52 01/14/17 18:52 01/14/17 18:52 01/14/17 18:52 01/14/17 18:52 General: Present: Other (intubated and sedated, appears comfortable on ventilator) Neck: Present: Supple Neck, Midline Trachea, No JVD/HJR, No Bruit Cardiac: Present: Reg Rate and Rhythm, S1/S2, Systolic Murmur (2/6 systolic ejection murmur along left lower sternal border.), Other (Occasional PVC). Absent: Tachycardia, Bradycardia Lungs: Present: Rales - Left, Rales - Right, Ventilated Respirations, No Wheezes Neuro: Present: Other (Unable to assess due to sedation with mechanical ventilation) Abdomen: Present: Soft, No Masses, No Pulsations/Bruits, Other (Obese) Skin: Present: Bruising (RUE) Musculoskeletal: Present: Decreased Range of Motion Extremities: Present: No Clubbing, No Cyanosis, Normal Upper Extr. Pulses (3+ bilaterally), Normal Lower Extr. Pulses (2-3+ bilaterally), Capillary Refill (< 3 secs). Absent: Edema Result/EKG - Labs CBC & BMP: 01/15/17 06:53 01/15/17 06:53 Lab Results: I have reviewed the past 24 hour labs Labs: Laboratory Results - last 24 hr 01/14/17 01/14/17 01/14/17 20:18 20:29 20:29 WBC RBC Hgb Hct MCV MCH MCHC RDW Plt Count MPV Neut % (Auto) Lymph % (Auto) [place] % (Auto) Eos % (Auto) Baso % (Auto) Neut # (Auto) Lymph # (Auto) [place] # (Auto) Eos # (Auto) Baso # (Auto) Total Counted Immature Gran % Nucleated RBC % Immature Gran # Segmented Neutrophils Lymphocytes Monocytes Nucleated RBCs # Platelet Estimate Hypochromasia Ovalocytes Morphology Comment ABG pH 7.508 H ABG pCO2 31.0 L ABG pO2 116.6 H ABG HCO3 24.1 ABG Total CO2 25.0 ABG O2 Saturation 98.2 ABG Base Excess 1.7 FiO2 Sodium Potassium Chloride Carbon Dioxide Anion Gap BUN Creatinine GFR Calculation BUN/Creatinine Ratio Glucose Calculated Osmolality Calcium Total Bilirubin AST ALT Alkaline Phosphatase Total Creatine Kinase 48 CK-MB (CK-2) 1.4 Troponin I 0.362 H B-Natriuretic Peptide 605 H Total Protein Albumin Globulin Albumin/Globulin Ratio Triglycerides Cholesterol LDL Cholesterol VLDL Cholesterol HDL Cholesterol Heart Disease Risk Ratio 01/14/17 01/15/17 01/15/17 23:57 02:42 06:52 WBC RBC Hgb Hct MCV MCH MCHC RDW Plt Count MPV Neut % (Auto) Lymph % (Auto) [place] % (Auto) Eos % (Auto) Baso % (Auto) Neut # (Auto) Lymph # (Auto) [place] # (Auto) Eos # (Auto) Baso # (Auto) Total Counted Immature Gran % Nucleated RBC % Immature Gran # Segmented Neutrophils Lymphocytes Monocytes Nucleated RBCs # Platelet Estimate Hypochromasia Ovalocytes Morphology Comment ABG pH 7.527 H ABG pCO2 32.7 L ABG pO2 90.0 ABG HCO3 26.5 H ABG Total CO2 27.5 H ABG O2 Saturation 97.1 ABG Base Excess 4.1 H FiO2 50.00 Sodium Potassium Chloride Carbon Dioxide Anion Gap BUN Creatinine GFR Calculation BUN/Creatinine Ratio Glucose Calculated Osmolality Calcium Total Bilirubin AST ALT Alkaline Phosphatase Total Creatine Kinase 142 D CK-MB (CK-2) 1.6 Troponin I 0.356 H B-Natriuretic Peptide 546 H Total Protein Albumin Globulin Albumin/Globulin Ratio Triglycerides Cholesterol LDL Cholesterol VLDL Cholesterol HDL Cholesterol Heart Disease Risk Ratio 01/15/17 01/15/17 01/15/17 06:53 06:53 06:53 WBC 8.4 RBC 3.93 Hgb 11.9 L Hct 36.3 MCV 92.4 MCH 30 MCHC 32.8 RDW 14.0 Plt Count 90 L MPV 11.3 Neut % (Auto) 91.0 H Lymph % (Auto) 5.9 L [place] % (Auto) 2.3 Eos % (Auto) 0.0 Baso % (Auto) 0.1 Neut # (Auto) 7.6 H Lymph # (Auto) 0.5 L [place] # (Auto) 0.2 Eos # (Auto) 0.0 Baso # (Auto) 0.0 Total Counted 100 Immature Gran % 0.7 Nucleated RBC % 0.0 Immature Gran # 0.06 Segmented Neutrophils 95 H Lymphocytes 4 L Monocytes 1 L Nucleated RBCs # 0.00 Platelet Estimate Decreased Hypochromasia 1+ Ovalocytes Slight Morphology Comment ABG pH ABG pCO2 ABG pO2 ABG HCO3 ABG Total CO2 ABG O2 Saturation ABG Base Excess FiO2 Sodium 146 H Potassium 3.9 Chloride 107 Carbon Dioxide 27 Anion Gap 15.9 H BUN 21 H Creatinine 1.00 GFR Calculation 72 BUN/Creatinine Ratio 21.00 H Glucose 137 H Calculated Osmolality 294.6 Calcium 7.6 L Total Bilirubin 1.40 H AST 166 H ALT 178 H Alkaline Phosphatase 82 Total Creatine Kinase 47 D CK-MB (CK-2) 1.3 Troponin I 0.224 H D B-Natriuretic Peptide Total Protein 5.7 L Albumin 3.0 L Globulin 2.7 Albumin/Globulin Ratio 1.1 Triglycerides 101 Cholesterol 96 LDL Cholesterol 47.0 VLDL Cholesterol 20.2 HDL Cholesterol 40 Heart Disease Risk Ratio 2.40 - Diagnostic Findings Procedure: Chest x-ray: image reviewed by me, report reviewed by me, CT: image reviewed by me, report reviewed by me - EKG EKG results: interpreted by me EKG shows: sinus rhythm Quality Measures - VTE Deep Vein Thrombosis/Pulmonary Embolism Present on Admission: No I, Fransico Eller MD, personally performed the services described in this documentation, ascribed by Shawanda Ocampo RN in my presence, and it is both accurate and complete .
[2017-01-15] MEDS: SPIRONOLACTONE 25 MG TABLET PO SCH ×2 (17:34→22:09)
[2017-01-15] MEDS: PANTOPRAZOLE 40 MG VIAL IV SCH (22:09)
[2017-01-16] MEDS: PROPOFOL 1,000 MG/100 ML BOTTLE IV SCH ×8 (00:25→23:45)
[2017-01-16] MEDS: ALBUTEROL/IPRATROPIUM 3 ML NEB RESP TX SCH ×4 (01:07→19:33)
[2017-01-16] MEDS: DOXYCYCLINE HYCLATE INJ 100 MG in SODIUM CHLORIDE 0.9% 100 ML IV SCH ×2 (01:45→14:45)
[2017-01-16 03:44] LABS: Allen Test Positive; Pt O2 Delivery Device Ventilator
[2017-01-16 03:45] LABS: ABG Base Excess 4.9 MMOL/L (-2.5-2.5); ABG HCO3 28.8 MMOL/L (20-26); ABG Oxygen Saturation 98.9 % (95-100); ABG PCO2 32.2 MM HG (35-48); ABG PH 7.534 (7.35-7.45); ABG TCO2 23.7 MMOL/L (23-27)
[2017-01-16] MEDS: methylPREDNISolone SOD SUC 125 MG/2 ML VIAL IV SCH ×3 (06:06→23:22)
[2017-01-16] MEDS: LACTATED RINGERS 1,000 ML IV SCH ×2 (08:01→20:05)
[2017-01-16 08:12] LABS: Hematocrit 36.6 VOL% (35.7-47.0); Hemoglobin 12.4 GM/DL (12.0-16.0); Immature Granulocytes % 0.5 %; Immature Granulocytes Absolute 0.06 #; Lymphocytes # 0.5 10*3/uL (1.4-4.0); Lymphocytes % 4.3 % (21.3-54.2); Mean Corpuscular HGB Conc 33.9 GM/DL (32-36); Mean Corpuscular Hemoglobin 31 PG (27-34); Mean Platelet Volume 11.9 FL (9.6-12.0); Monocytes # 0.4 10*3/uL (0.11-0.8); Monocytes % 3.1 % (1.7-12.7); Neutrophils # 11.2 10*3/uL (1.4-7.4); Neutrophils % 92.1 % (38.7-73.9); Platelet Count 105 T/CUMM (130-400); Red Blood Count 3.98 MC/CUMM (3.8-5.5); Red Cell Distribution Width 14.2 % (9.3-17.3); White Blood Count 12.2 T/CUMM (4-12)
--- NOTE | 2017-01-16 08:14 | Pulmonology Progress Note ---
Pulmonary - PN: Subj Interval history: This is a 66-year-old white female whom I was asked to see in pulmonary consultation for evaluation and treatment and management of mechanical ventilation on 01/15/2017 My impressions were. 1. Acute respiratory arrest requiring intubation mechanical ventilation. Etiology is undetermined. The patient takes losartan. I do not see any evidence of angioedema. There is a history of asthma. Presently the patient is wheeze free. She has elevated BNP and chest x-ray shows increased interstitial markings which may be secondary to congestive heart failure. Note that the patient may have underlying sarcoidosis. So far there is no definite pneumonia seen on chest x-ray. 2. History of atrial fib and possible history of heart disease 3. Bilateral hilar lymph node enlargement. This has the appearance of so- called "potato nodes". This is probably sarcoidosis and may explain some increased interstitial markings. Keep in mind other possibilities. 4. History of asthma 5. History of depression 6. History of high blood pressure 7. Elevated liver function test etiology undetermined 8. Previous cholecystectomy 9. Past history of thyroid surgery 10. See past history 01/16/2017. Today's chest x-ray shows cardiomegaly. Vascular tumor is plump in the perihilar areas patient has bilateral pleural effusions all compatible with pulmonary edema. Endotracheal tube is in good position. BNP is elevated at 546. ABGs on mechanical ventilation FiO2 of 50% shows a pH 7.53, PCO2 32, PO2 of 124 and a bicarb of 28.8. There are no positive cultures. At the present time it looks like the major problem is congestive heart failure. Echocardiogram showed mildly dilated left ventricle with mild left ventricular hypertrophy and an ejection fraction of 30-40% range. There was some slight septal thickening. Mild mitral regurgitation and moderate aortic valve regurgitation were present. Left atrium was enlarged. Right ventricle is normal. Pulmonary artery pressures were elevated at 52 mmHg. Physical exam. Vital signs. See below. No fever. Neck. Symmetrical no meningismus Lymphatics. No submandibular cervical supraclavicular or epitrochlear adenopathy. Chest. Stiff breath sounds Heart. Lateral PMI Abdomen. Rare bowel sounds Lower extremities. Mild chronic bilateral venous stasis changes. Neurologic. Moves all fours. The remainder the physical exam is Plan. 1. Echocardiogram. Ejection fraction 30-40% with mitral regurgitation pulmonary hypertension 2. Cardiology consultation 3. Agree with protocol antibiotics 4. Agree with steroids. 5. Daily chest x-ray, ABGs, lab 6. Mechanical ventilation weaning protocol 7. Physical therapy protocol while on mechanical ventilation. 8. Deep venous thrombophlebitis prevention protocol. 9. Proton pump inhibitor protocol. 10. See order 11. 01/16/2017. Have ordered Lasix 20 IV push every 8 hours. Will follow daily chest x-ray, ABGs, BMP, BNP Exam (Progress Note) - Constitutional Vitals: Period Temp Pulse Resp BP Sys/Johnson Pulse Ox Last 24 Hr 97.7 F-98.2 F 62-77 12-15 132-169/69-98 94-100 Results - Labs CBC & BMP: 01/16/17 07:50 01/15/17 06:53
[2017-01-16 08:31] LABS: Band Neutrophils 1 % (0-10); Hypochromasia 1+; Lymphocytes 1 % (20-55); Segmented Neutrophils 94 % (50-85); Total Cells Counted 100
[2017-01-16 08:32] LABS: Platelet Estimate Decreased
[2017-01-16 08:33] LABS: Microcytosis 1+; Ovalocytes Slight
[2017-01-16 08:46] LABS: Albumin 3.2 G/DL (3.4-5.0); Bilirubin,Total 0.5 MG/DL (0.2-1.0); Calcium 8.1 MG/DL (8.5-10.1); Magnesium 1.7 MG/DL (1.8-2.4); Osmolality,Calculated 291.8 MOS/KG (273-304); Potassium 3.3 MMOL/L (3.5-5.1); Total Protein 6.1 G/DL (6.4-8.3)
[2017-01-16 08:47] LABS: Albumin 3.1 G/DL (3.4-5.0); Bilirubin,Direct 0.2 MG/DL (0.0-0.20); Bilirubin,Indirect 0.9 MG/DL (0.0-1.0); Bilirubin,Total 1.1 MG/DL (0.2-1.0)
[2017-01-16 08:53] LABS: Risk Ratio 2.63; VLDL CHOLESTEROL 22.6 MG/DL
--- NOTE | 2017-01-16 10:19 | XRay Report ---
Portable chest. Indication: Ventilated patient. Comparison: January 15, 2017. The heart is enlarged. There is prominent uncoiling of the thoracic aorta, which often indicates chronic hypertension. The pulmonary vasculature is normal. There is worsening atelectasis at the right lung base. There is a small right pleural effusion. There is worsening infiltrate at the left lung base with a moderate pleural effusion. An endotracheal tube and nasogastric tube remain in satisfactory position. Stable osseous structures. Impression: Interval worsening of the appearance of the bases. PROCEDURE INTERPRETED AT [facility] DEPARTMENT OF RADIOLOGY Final Report Signed by: Dr. Allegra Smith
[2017-01-16] MEDS: SPIRONOLACTONE 25 MG TABLET PO SCH ×2 (10:21→21:29)
[2017-01-16] MEDS: FONDAPARINUX 7.5 MG/0.6 ML SYRINGE SUBCUT SCH (10:23)
[2017-01-16] MEDS: CARVEDILOL 12.5 MG TABLET PO SCH ×2 (10:24→21:29)
[2017-01-16] MEDS: LOSARTAN 25 MG TABLET PO SCH (10:25)
[2017-01-16] MEDS: FUROSEMIDE 20 MG/2 ML VIAL IV SCH ×2 (10:25→17:44)
[2017-01-16] MEDS: ASPIRIN 325 MG TABLET PO SCH (10:25)
--- NOTE | 2017-01-16 10:58 | Hospitalist Progress Note ---
Assessment and Plan (1) Acute respiratory failure Status: Acute Assessment and plan: Patient has a history of asthma, she presented with SOB and allergic symptoms and was subsequently intubated. 01/15/17 CT chest showed no evidence of PE but a dependent atelectatic parenchymal consolidation in either lower lobe. Small to mederate left greater than right pleural effusion 01/16/17: CXR showed interval worsening of the appearance of the bases Echocardiogram showed mildly dilated left ventricle with mild left ventricular hypertrophy and an ejection fraction of 30-40% range. There was some slight septal thickening. Mild mitral regurgitation and moderate aortic valve regurgitation were present. Left atrium was enlarged. Right ventricle is normal. Pulmonary artery pressures were elevated at 52 mmHg. Influenza A and B levels- negative Cultures-negative so far Plan Continue with vent support, IV steroids, nebs treatment, IV antibiotics Follow Pulm's recommendations Current Visit: Yes (2) Elevated troponin Status: Acute Assessment and plan: troponin level is trending downwards, Cardiology is following,continue current regime. Echo-noted Current Visit: Yes (3) History of atrial fibrillation Status: Acute Assessment and plan: rate is controlled. She is currently in sinus. Follow Cardiology's recommendations Current Visit: Yes (4) Diabetes Status: Acute Assessment and plan: Blood sugar is decent, continue current regime. HbA1c level-5.9, Lipids-noted, TSH-0.4 Current Visit: Yes (5) Hypertension Status: Acute Assessment and plan: increase Cozaar to 25mg daily , follow response Current Visit: Yes (6) History of depression Status: Acute Assessment and plan: will resume home meds when stable. Current Visit: Yes (7) Elevated liver enzymes Status: Acute Assessment and plan: .-improving, may be secondary to HF. Hepatitis panel is negative,continue to monitor levels. Current Visit: Yes (8) CHF (congestive heart failure) Status: Acute Assessment and plan: acute on chronic systolic failure Echo showed mildly to mederately increased left ventricular cavity size. Mild left ventricular hypertrophy. EF-30-40% moderately increased septal thickness. continue with ASA,Coreg, losartan, Aldactone,and IV Lasix -follow Cardiology's recommendations Current Visit: Yes (9) Thrombocytopenia Status: Acute Assessment and plan: Reason for using Arixtra instead of Lovenox. We will continue to monitor level. Current Visit: Yes (10) History of thyroid surgery Status: Acute Assessment and plan: TSH-0.417 Current Visit: Yes Hospitalist: Subjective Interval history: Patient seen on the vent, sedated, appears comfortable. Nursing staff reports she didnt do well on CPAP trial. Exam - Constitutional Vitals: Period Temp Pulse Resp BP Sys/Johnson Pulse Ox Last 24 Hr 97.7 F-98.2 F 62-77 12-15 132-169/69-98 94-100 General appearance: no acute distress, other (intubated and sedated) - Respiratory Respiratory exam: Present: decreased breath sounds - Cardiovascular Cardiovascular exam: Present: regular rate and rhythm - GI/Abdominal GI/Abdominal exam: Present: normal bowel sounds - Extremities Exam Extremities exam: Present: normal inspection - Neurological Exam Neurological exam: Present: other (sedated) Results - Labs CBC & BMP: 01/16/17 07:50 01/16/17 07:50 Lab Results: I have reviewed the past 24 hour labs Quality Measures - VTE Deep Vein Thrombosis/Pulmonary Embolism Present on Admission: No
[2017-01-16] MEDS ORDERED: LOSARTAN 25 MG TABLET PO SCH (11:05)
[2017-01-16] MEDS: FUROSEMIDE 40 MG/4 ML VIAL IV SCH ×2 (14:21→17:44)
[2017-01-16] MEDS ORDERED: POTASSIUM CHLORIDE 20 MEQ PACK PO ONE (16:23)
[2017-01-16] MEDS ORDERED: MAGNESIUM SULF RIDER 2 GM in PREMIX 1 EACH IV ONE (16:24)
[2017-01-16] MEDS ORDERED: MAGNESIUM CHLORIDE 64 MG TABLET PO SCH (16:25)
--- NOTE | 2017-01-16 17:04 | Cardiology Progress Note ---
Assessment and Plan (1) Heart failure, systolic and diastolic, acute on chronic Status: Acute Assessment and plan: Her respiratory failure is probably predominantly due to heart failure, I suspect probably systolic and diastolic. her [place] zone troponin I suspect is not reflected an PR or ACS but her heart failure. There is a question of pneumonia, although Dr. Burrows does not think so. Her elevated LFTs may be from right heart congestion from the heart failure plan/recommendation: In the course of the evaluation, it was decided the patient needed to have an echocardiogram for the pts management. It was ordered. I will review it.. Serial CMP to watch LFTs. EKG in the a.m. Serial troponins. CMP in morning. She is on carvedilol and losartan-I agree with these. Will add some spironolactone. Agree with treating for infection with antibiotics for now. Prognosis remains guarded. I will follow along with. Thank you for allowing me to participate in this patient's care 01/16/17-the echo did reveal significant LV systolic dysfunction, LVEF 30-40%. Thus, I believe much of her respiratory failure is due to cardiac decompensation /heart failure. Plan/recommendation: The patient's will get the records from her prior echo for comparison. We will replete the potassium. We will replete the magnesium. LFTs are decreasing. Maybe there were due to the event, so-called shock liver. It appears her respiratory decompensation is related to the heart failure. She is hypertensive. Will increase the spironolactone and add joao. It will be used instead of the losartan. I had a long discussion with the patient's about her cardiac condition and our approach to helping her. We will watch out for any episodes of atrial fib. I conferred care with the patient's nurse. Current Visit: Yes (2) Acute respiratory failure Status: Acute Current Visit: Yes (3) Hypertension Status: Acute Current Visit: Yes (4) Diabetes Status: Acute Current Visit: Yes (5) COPD (chronic obstructive pulmonary disease) Status: Acute Current Visit: Yes (6) History of atrial fibrillation Status: Acute Current Visit: Yes (7) History of depression Status: Acute Current Visit: Yes (8) Pneumonia Status: Acute Current Visit: Yes (9) Elevated LFTs Status: Acute Current Visit: Yes (10) Sarcoidosis Status: Acute Current Visit: Yes (11) Sarcoidosis of lung Status: Acute Current Visit: Yes (12) Lymphadenopathy Status: Acute Current Visit: Yes (13) Type 2 diabetes mellitus Status: Acute Current Visit: Yes (14) Elevated brain natriuretic peptide (BNP) level Status: Acute Current Visit: Yes (15) CHF (congestive heart failure) Status: Acute Current Visit: Yes (16) Elevated liver enzymes Status: Acute Current Visit: Yes (17) Elevated troponin Status: Acute Current Visit: Yes Cardiology - PN: Subj Interval history: The patient remains sedated. I discussed with the patient's about her overall health. She does have lupus but her last flare was over 6 years ago. She is on prednisone for the lupus. She has had some atrial fib for which she has been on Xarelto. She sees Dr. Bertrand in [place]. She also sees a [employer] infrastructure architect in [place]. She has foot problems, both feet. She uses a cane. About 2 times a year she will fall. She uses an oxygen concentrator occasionally. Has mild COPD from prior smoking. Exam (Progress Note) - Constitutional Vitals: Period Temp Pulse Resp BP Sys/Johnson Pulse Ox Last 24 Hr 97.4 F-98.2 F 62-77 12-22 138-169/69-108 96-100 Exam: HEENT: Pupils equal, reactive to light and accommodation Neck: NoJVD or bruit Lungs clear to auscultation Heart: Regular rhythm rate with normal S1 and S2. Apical S4 Abdomen: No hepatosplenomegaly Spine/extremities: No clubbing, cyanosis, or edema Neuro: Sedated Psych: No depression or anxiety Result/EKG - Labs CBC & BMP: 01/16/17 07:50 01/16/17 07:50 Lab Results: I have reviewed the past 24 hour labs Labs: Laboratory Results - last 24 hr 01/16/17 01/16/17 01/16/17 03:35 07:50 07:50 WBC RBC Hgb Hct MCV MCH MCHC RDW Plt Count MPV Neut % (Auto) Lymph % (Auto) Miller % (Auto) Eos % (Auto) Baso % (Auto) Neut # (Auto) Lymph # (Auto) Miller # (Auto) Eos # (Auto) Baso # (Auto) Total Counted Immature Gran % Nucleated RBC % Immature Gran # Segmented Neutrophils Band Neutrophils Lymphocytes Monocytes Nucleated RBCs # Platelet Estimate Hypochromasia Microcytosis Ovalocytes ABG pH 7.534 H ABG pCO2 32.2 L ABG pO2 124.0 H ABG HCO3 28.8 H ABG Total CO2 23.7 ABG O2 Saturation 98.9 ABG Base Excess 4.9 H FiO2 50.00 Sodium 144 Potassium 3.3 L Chloride 103 Carbon Dioxide 30 Anion Gap 14.3 BUN 22 H Creatinine 1.10 H GFR Calculation 64 BUN/Creatinine Ratio 20.00 Glucose 155 H Calculated Osmolality 291.8 Calcium 8.1 L Magnesium 1.7 L Total Bilirubin 0.50 Direct Bilirubin Indirect Bilirubin AST 73 H ALT 144 H Alkaline Phosphatase 77 B-Natriuretic Peptide 493 H Total Protein 6.1 L Albumin 3.2 L Globulin 2.9 Albumin/Globulin Ratio 1.1 Triglycerides Cholesterol LDL Cholesterol VLDL Cholesterol HDL Cholesterol Heart Disease Risk Ratio 01/16/17 01/16/17 01/16/17 07:50 07:50 07:51 WBC 12.2 H D RBC 3.98 Hgb 12.4 Hct 36.6 MCV 92.0 MCH 31 MCHC 33.9 RDW 14.2 Plt Count 105 L MPV 11.9 Neut % (Auto) 92.1 H Lymph % (Auto) 4.3 L Miller % (Auto) 3.1 Eos % (Auto) 0.0 Baso % (Auto) 0.0 Neut # (Auto) 11.2 H Lymph # (Auto) 0.5 L Miller # (Auto) 0.4 Eos # (Auto) 0.0 Baso # (Auto) 0.0 Total Counted 100 Immature Gran % 0.5 Nucleated RBC % 0.0 Immature Gran # 0.06 Segmented Neutrophils 94 H Band Neutrophils 1 Lymphocytes 1 L Monocytes 4 Nucleated RBCs # 0.00 Platelet Estimate Decreased Hypochromasia 1+ Microcytosis 1+ Ovalocytes Slight ABG pH ABG pCO2 ABG pO2 ABG HCO3 ABG Total CO2 ABG O2 Saturation ABG Base Excess FiO2 Sodium Potassium Chloride Carbon Dioxide Anion Gap BUN Creatinine GFR Calculation BUN/Creatinine Ratio Glucose Calculated Osmolality Calcium Magnesium Total Bilirubin 1.10 H Direct Bilirubin 0.2 Indirect Bilirubin 0.9 AST 73 H ALT 139 H Alkaline Phosphatase 77 B-Natriuretic Peptide Total Protein 6.0 L Albumin 3.1 L Globulin Albumin/Globulin Ratio Triglycerides 113 Cholesterol 121 LDL Cholesterol 66.0 VLDL Cholesterol 22.6 HDL Cholesterol 46 Heart Disease Risk Ratio 2.63 Quality Measures - VTE Deep Vein Thrombosis/Pulmonary Embolism Present on Admission: No Specialty Discharge - Follow Up or Referrals Follow up with: Fransico Eller MD [Physician] - (Follow-up with me about 2-4 weeks after the patient gets out of the hospital. Patient's wants her to follow with me , but she will make the final decision about who she will follow up with.)
[2017-01-16] MEDS: SACUBITRIL/VALSARTAN 49-51 MG TABLET PO SCH ×2 (17:50→21:29)
[2017-01-16] MEDS: MAGNESIUM OXIDE 400 MG TABLET NG SCH (21:29)
[2017-01-16] MEDS: NOREPINEPHRINE 8 MG in SODIUM CHLORIDE 0.9% 242 ML IV SCH (22:01)
[2017-01-16] MEDS: cefTRIAXone 1,000 MG in SODIUM CHLORIDE 0.9% 100 ML IV SCH (23:22)
[2017-01-16] MEDS: PANTOPRAZOLE 40 MG VIAL IV SCH (23:22)
[2017-01-17] MEDS: ALBUTEROL/IPRATROPIUM 3 ML NEB RESP TX SCH ×4 (01:24→19:47)
[2017-01-17] MEDS: PROPOFOL 1,000 MG/100 ML BOTTLE IV SCH ×5 (03:27→21:07)
[2017-01-17] MEDS: DOXYCYCLINE HYCLATE INJ 100 MG in SODIUM CHLORIDE 0.9% 100 ML IV SCH ×2 (03:27→14:41)
[2017-01-17 03:56] LABS: ABG Base Excess 5.5 MMOL/L (-2.5-2.5); ABG HCO3 29.4 MMOL/L (20-26); ABG PCO2 34.6 MM HG (35-48); ABG TCO2 24.5 MMOL/L (23-27)
[2017-01-17 04:54] LABS: Basophils % 0.1 % (0.0-0.8); Hematocrit 38.4 VOL% (35.7-47.0); Hemoglobin 12.6 GM/DL (12.0-16.0); Immature Granulocytes % 0.7 %; Immature Granulocytes Absolute 0.09 #; Lymphocytes # 0.4 10*3/uL (1.4-4.0); Lymphocytes % 3.1 % (21.3-54.2); Mean Corpuscular HGB Conc 32.8 GM/DL (32-36); Mean Corpuscular Hemoglobin 30 PG (27-34); Mean Corpuscular Volume 92.8 FL (87-102); Mean Platelet Volume 11.4 FL (9.6-12.0); Monocytes # 0.4 10*3/uL (0.11-0.8); Monocytes % 3.1 % (1.7-12.7); Neutrophils # 12.5 10*3/uL (1.4-7.4); Platelet Count 132 T/CUMM (130-400); Red Blood Count 4.14 MC/CUMM (3.8-5.5); Red Cell Distribution Width 14.5 % (9.3-17.3); White Blood Count 13.4 T/CUMM (4-12)
[2017-01-17 05:26] LABS: Albumin 2.9 G/DL (3.4-5.0); Bilirubin,Total 1.3 MG/DL (0.2-1.0); Magnesium 2.2 MG/DL (1.8-2.4); Osmolality,Calculated 296.7 MOS/KG (273-304); Potassium 3.3 MMOL/L (3.5-5.1); Total Protein 6.1 G/DL (6.4-8.3)
[2017-01-17 05:47] LABS: Band Neutrophils 2 % (0-10); Lymphocytes 3 % (20-55); Microcytosis 1+; Segmented Neutrophils 93 % (50-85); Total Cells Counted 100
[2017-01-17 05:48] LABS: Hypochromasia 1+; Ovalocytes Slight; Platelet Estimate Adequate
[2017-01-17] MEDS: methylPREDNISolone SOD SUC 125 MG/2 ML VIAL IV SCH ×2 (06:38→14:41)
[2017-01-17] MEDS ORDERED: LACTATED RINGERS 1,000 ML IV SCH (08:18)
[2017-01-17] MEDS: LACTATED RINGERS 1,000 ML IV SCH (08:24)
[2017-01-17] MEDS: FUROSEMIDE 40 MG/4 ML VIAL IV SCH ×2 (08:25→22:00)
[2017-01-17] MEDS: SPIRONOLACTONE 25 MG TABLET PO SCH ×2 (08:26→22:01)
[2017-01-17] MEDS: MAGNESIUM OXIDE 400 MG TABLET NG SCH ×2 (08:26→22:01)
[2017-01-17] MEDS: SACUBITRIL/VALSARTAN 49-51 MG TABLET PO SCH ×3 (08:26→22:01)
[2017-01-17] MEDS: ASPIRIN 325 MG TABLET PO SCH (08:26)
[2017-01-17] MEDS: CARVEDILOL 12.5 MG TABLET PO SCH ×2 (08:26→22:01)
[2017-01-17] MEDS: FONDAPARINUX 7.5 MG/0.6 ML SYRINGE SUBCUT SCH (08:27)
--- NOTE | 2017-01-17 08:28 | Pulmonology Progress Note ---
Pulmonary - PN: Subj Interval history: This is a 66-year-old white female whom I was asked to see in pulmonary consultation for evaluation and treatment and management of mechanical ventilation on 01/15/2017 My impressions were. 1. Acute respiratory arrest requiring intubation mechanical ventilation. Etiology is undetermined. The patient takes losartan. I do not see any evidence of angioedema. There is a history of asthma. Presently the patient is wheeze free. She has elevated BNP and chest x-ray shows increased interstitial markings which may be secondary to congestive heart failure. Note that the patient may have underlying sarcoidosis. So far there is no definite pneumonia seen on chest x-ray. 2. History of atrial fib and possible history of heart disease 3. Bilateral hilar lymph node enlargement. This has the appearance of so- called "potato nodes". This is probably sarcoidosis and may explain some increased interstitial markings. Keep in mind other possibilities. 4. History of asthma 5. History of depression 6. History of high blood pressure 7. Elevated liver function test etiology undetermined 8. Previous cholecystectomy 9. Past history of thyroid surgery 10. See past history 01/16/2017. Today's chest x-ray shows cardiomegaly. Vascular tumor is plump in the perihilar areas patient has bilateral pleural effusions all compatible with pulmonary edema. Endotracheal tube is in good position. BNP is elevated at 546. ABGs on mechanical ventilation FiO2 of 50% shows a pH 7.53, PCO2 32, PO2 of 124 and a bicarb of 28.8. There are no positive cultures. At the present time it looks like the major problem is congestive heart failure. Echocardiogram showed mildly dilated left ventricle with mild left ventricular hypertrophy and an ejection fraction of 30-40% range. There was some slight septal thickening. Mild mitral regurgitation and moderate aortic valve regurgitation were present. Left atrium was enlarged. Right ventricle is normal. Pulmonary artery pressures were elevated at 52 mmHg. 01/17/2017. Chest x-ray shows pulmonary edema fairly large bilateral pleural effusions. BNP is elevated 901. Potassium is low at 3.3. Creatinine is 1.0. BUNs 25. White count 13,400. H&H 12.6/38.4. Patient is on stage to the weaning protocol but is not tolerating this particularly well. We need to improve her pulmonary edema. Physical exam. Vital signs. See below. No fever. Neck. Symmetrical no meningismus Lymphatics. No submandibular cervical supraclavicular or epitrochlear adenopathy. Chest. Stiff breath sounds Heart. Lateral PMI Abdomen. Rare bowel sounds Lower extremities. Mild chronic bilateral venous stasis changes. Neurologic. Moves all fours. The remainder the physical exam is Plan. 1. Echocardiogram. Ejection fraction 30-40% with mitral regurgitation pulmonary hypertension 2. Cardiology consultation 3. Agree with protocol antibiotics 4. Agree with steroids. 5. Daily chest x-ray, ABGs, lab 6. Mechanical ventilation weaning protocol 7. Physical therapy protocol while on mechanical ventilation. 8. Deep venous thrombophlebitis prevention protocol. 9. Proton pump inhibitor protocol. 10. See order 11. 01/16/2017. Have ordered Lasix 20 IV push every 8 hours. Will follow daily chest x-ray, ABGs, BMP, BNP 12. 01/17/2017. See today's note above. Patient is not doing well on the weaning protocol. We need better resolution of her pulmonary edema Exam (Progress Note) - Constitutional Vitals: Period Temp Pulse Resp BP Sys/Johnson Pulse Ox Last 24 Hr 97.3 F-99.0 F 58-88 12-24 124-175/72-110 96-100 Results - Labs CBC & BMP: 01/17/17 04:37 01/17/17 04:37 Specialty Discharge - Follow Up or Referrals Follow up with: Fransico Eller MD [Physician] - (Follow-up with me about 2-4 weeks after the patient gets out of the hospital. Patient's wants her to follow with me , but she will make the final decision about who she will follow up with.)
--- NOTE | 2017-01-17 09:12 | XRay Report ---
Portable chest. Indication: Respiratory failure. Ventilated patient. Comparison: January 18, 2017. The heart is enlarged. There is prominent uncoiling of the thoracic aorta. The pulmonary vasculature is prominent. Infiltrate and atelectasis is present at each lung base. Small pleural effusions are suggested. Endotracheal tube and nasogastric tube remain in satisfactory position. Impression: No significant interval change. PROCEDURE INTERPRETED AT [facility] DEPARTMENT OF RADIOLOGY Final Report Signed by: Dr. Allegra Smith
--- NOTE | 2017-01-17 11:33 | Hospitalist Progress Note ---
Assessment and Plan (1) Acute respiratory failure Status: Acute Assessment and plan: Patient has a history of asthma, she presented with SOB and allergic symptoms and was subsequently intubated. 01/15/17 CT chest showed no evidence of PE but a dependent atelectatic parenchymal consolidation in either lower lobe. Small to mederate left greater than right pleural effusion 01/16/17: CXR showed interval worsening of the appearance of the bases Echocardiogram showed mildly dilated left ventricle with mild left ventricular hypertrophy and an ejection fraction of 30-40% range. There was some slight septal thickening. Mild mitral regurgitation and moderate aortic valve regurgitation were present. Left atrium was enlarged. Right ventricle is normal. Pulmonary artery pressures were elevated at 52 mmHg. Influenza A and B levels- negative Cultures-negative so far 01/17/2017 Chest x-ray shows pulmonary edema fairly large bilateral pleural effusions. Patient not doing well on weaning parameters. Plan DC IVF Will give extra dose of Lasix, continue with other diuretics repeat CXR in am Continue with vent support, IV steroids, nebs treatment, IV antibiotics Follow Pulm's recommendations Current Visit: Yes (2) Elevated troponin Status: Acute Assessment and plan: troponin level is trending downwards, Cardiology is following,continue current regime. Echo-noted Current Visit: Yes (3) History of atrial fibrillation Status: Acute Assessment and plan: rate is controlled. She is currently in sinus. Follow Cardiology's recommendations Current Visit: Yes (4) Diabetes Status: Acute Assessment and plan: Blood sugar is decent, continue current regime. HbA1c level-5.9, Lipids-noted, TSH-0.4. Continue to monitor levels using sliding scale Current Visit: Yes (5) Hypertension Status: Acute Assessment and plan: Patient has been switched from Cozaar to Entresto , follow response Current Visit: Yes (6) History of depression Status: Acute Assessment and plan: will resume home meds when stable. Current Visit: Yes (7) Elevated liver enzymes Status: Acute Assessment and plan: .-improving, may be secondary to HF. Hepatitis panel is negative,continue to monitor levels. Current Visit: Yes (8) CHF (congestive heart failure) Status: Acute Assessment and plan: acute on chronic systolic failure Echo showed mildly to mederately increased left ventricular cavity size. Mild left ventricular hypertrophy. EF-30-40% moderately increased septal thickness. continue with ASA,Coreg, Aldactone, IV Lasix and now Entresto -follow Cardiology's recommendations Current Visit: Yes (9) Thrombocytopenia Status: Acute Assessment and plan: Reason for using Arixtra instead of Lovenox. We will continue to monitor level. Current Visit: Yes (10) History of thyroid surgery Status: Acute Assessment and plan: TSH-0.417 Current Visit: Yes Hospitalist: Subjective Interval history: Patient seen on the vent. She is not doing well on the weaning protocol. Chest x-ray shows pulmonary edema fairly large bilateral pleural effusions. Exam - Constitutional Vitals: Period Temp Pulse Resp BP Sys/Johnson Pulse Ox Last 24 Hr 97.3 F-99.0 F 58-88 12-24 124-175/72-110 96-100 General appearance: no acute distress, other (sedated and intubated) - Respiratory Respiratory exam: Present: decreased breath sounds - Cardiovascular Cardiovascular exam: Present: regular rate and rhythm - GI/Abdominal GI/Abdominal exam: Present: normal bowel sounds - Extremities Exam Extremities exam: Present: normal inspection - Psychiatric Psychiatric exam: Present: other (intubated, sedated) Results - Labs CBC & BMP: 01/17/17 04:37 01/17/17 04:37 Lab Results: I have reviewed the past 24 hour labs Quality Measures - VTE Deep Vein Thrombosis/Pulmonary Embolism Present on Admission: No Specialty Discharge - Follow Up or Referrals Follow up with: Fransico Eller MD [Physician] - (Follow-up with me about 2-4 weeks after the patient gets out of the hospital. Patient's wants her to follow with me , but she will make the final decision about who she will follow up with.)
[2017-01-17] MEDS ORDERED: FUROSEMIDE 40 MG/4 ML VIAL IV ONE (11:36)
[2017-01-17] MEDS ORDERED: GLUCAGON 1 MG VIAL IM PRN (11:39)
[2017-01-17] MEDS ORDERED: DEXTROSE 50% 25 GM/50 ML VIAL IV PRN (11:39)
--- NOTE | 2017-01-17 11:57 | Hospitalist Progress Note ---
Assessment and Plan (1) Acute respiratory failure Status: Acute Assessment and plan: Patient has a history of asthma, she presented with SOB and allergic symptoms and was subsequently intubated. 01/15/17 CT chest showed no evidence of PE but a dependent atelectatic parenchymal consolidation in either lower lobe. Small to mederate left greater than right pleural effusion 01/16/17: CXR showed interval worsening of the appearance of the bases Echocardiogram showed mildly dilated left ventricle with mild left ventricular hypertrophy and an ejection fraction of 30-40% range. There was some slight septal thickening. Mild mitral regurgitation and moderate aortic valve regurgitation were present. Left atrium was enlarged. Right ventricle is normal. Pulmonary artery pressures were elevated at 52 mmHg. Influenza A and B levels- negative Cultures-negative so far 01/17/2017 Chest x-ray shows pulmonary edema fairly large bilateral pleural effusions. Patient not doing well on weaning parameters. Plan DC IVF Will give extra dose of Lasix, continue with other diuretics repeat CXR in am Continue with vent support, IV steroids, nebs treatment, IV antibiotics Follow Pulm's recommendations Current Visit: Yes (2) Elevated troponin Status: Acute Assessment and plan: troponin level is trending downwards, Cardiology is following,continue current regime. Echo-noted Current Visit: Yes (3) History of atrial fibrillation Status: Acute Assessment and plan: rate is controlled. She is currently in sinus. Follow Cardiology's recommendations Current Visit: Yes (4) Diabetes Status: Acute Assessment and plan: Blood sugar is decent, continue current regime. HbA1c level-5.9, Lipids-noted, TSH-0.4. Continue to monitor levels using sliding scale Current Visit: Yes (5) Hypertension Status: Acute Assessment and plan: Patient has been switched from Cozaar to Entresto , follow response Current Visit: Yes (6) History of depression Status: Acute Assessment and plan: will resume home meds when stable. Current Visit: Yes (7) Elevated liver enzymes Status: Acute Assessment and plan: .-improving, may be secondary to HF. Hepatitis panel is negative,continue to monitor levels. Current Visit: Yes (8) CHF (congestive heart failure) Status: Acute Assessment and plan: acute on chronic systolic failure Echo showed mildly to mederately increased left ventricular cavity size. Mild left ventricular hypertrophy. EF-30-40% moderately increased septal thickness. continue with ASA,Coreg, Aldactone, IV Lasix and now Entresto -follow Cardiology's recommendations Current Visit: Yes (9) Thrombocytopenia Status: Acute Assessment and plan: Reason for using Arixtra instead of Lovenox. We will continue to monitor level. Current Visit: Yes (10) History of thyroid surgery Status: Acute Assessment and plan: TSH-0.417 Current Visit: Yes Exam - Constitutional Vitals: Period Temp Pulse Resp BP Sys/Johnson Pulse Ox Last 24 Hr 97.3 F-99.0 F 58-88 12-24 124-175/72-110 96-100 Results - Labs CBC & BMP: 01/17/17 04:37 01/17/17 04:37 Quality Measures - VTE Deep Vein Thrombosis/Pulmonary Embolism Present on Admission: No Specialty Discharge - Follow Up or Referrals Follow up with: Fransico Eller MD [Physician] - (Follow-up with me about 2-4 weeks after the patient gets out of the hospital. Patient's wants her to follow with me , but she will make the final decision about who she will follow up with.)
[2017-01-17 12:16] LABS: Troponin I Only 0.101 NG/ML (0.00-0.045)
--- NOTE | 2017-01-17 12:58 | Cardiology Progress Note ---
Assessment and Plan (1) Heart failure, systolic and diastolic, acute on chronic Status: Acute Assessment and plan: Her respiratory failure is probably predominantly due to heart failure, I suspect probably systolic and diastolic. her franklin zone troponin I suspect is not reflected an UT or ACS but her heart failure. There is a question of pneumonia, although Dr. Burrows does not think so. Her elevated LFTs may be from right heart congestion from the heart failure plan/recommendation: In the course of the evaluation, it was decided the patient needed to have an echocardiogram for the pts management. It was ordered. I will review it.. Serial CMP to watch LFTs. EKG in the a.m. Serial troponins. CMP in morning. She is on carvedilol and losartan-I agree with these. Will add some spironolactone. Agree with treating for infection with antibiotics for now. Prognosis remains guarded. I will follow along with. Thank you for allowing me to participate in this patient's care 01/16/17-the echo did reveal significant LV systolic dysfunction, LVEF 30-40%. Thus, I believe much of her respiratory failure is due to cardiac decompensation /heart failure. Plan/recommendation: The patient's will get the records from her prior echo for comparison. We will replete the potassium. We will replete the magnesium. LFTs are decreasing. Maybe there were due to the event, so-called shock liver. It appears her respiratory decompensation is related to the heart failure. She is hypertensive. Will increase the spironolactone and add joao. It will be used instead of the losartan. I had a long discussion with the patient's about her cardiac condition and our approach to helping her. We will watch out for any episodes of atrial fib. I conferred care with the patient's nurse. 01/17/17-assessment/plan/recommendation: She remains in heart failure. Agree with continue the IV Lasix. Her blood pressure remains slightly elevated. Will increase the entresto to 1 tablet twice daily. We will replete her low potassium. So far, she has not had any atrial fibrillation. Current Visit: Yes (2) Acute respiratory failure Status: Acute Current Visit: Yes (3) Hypertension Status: Acute Current Visit: Yes (4) Diabetes Status: Acute Current Visit: Yes (5) COPD (chronic obstructive pulmonary disease) Status: Acute Current Visit: Yes (6) History of atrial fibrillation Status: Acute Current Visit: Yes (7) History of depression Status: Acute Current Visit: Yes (8) Pneumonia Status: Acute Current Visit: Yes (9) Elevated LFTs Status: Acute Current Visit: Yes (10) Sarcoidosis Status: Acute Current Visit: Yes (11) Sarcoidosis of lung Status: Acute Current Visit: Yes (12) Lymphadenopathy Status: Acute Current Visit: Yes (13) Type 2 diabetes mellitus Status: Acute Current Visit: Yes (14) Elevated brain natriuretic peptide (BNP) level Status: Acute Current Visit: Yes (15) CHF (congestive heart failure) Status: Acute Current Visit: Yes (16) Elevated liver enzymes Status: Acute Current Visit: Yes (17) Elevated troponin Status: Acute Current Visit: Yes Cardiology - PN: Subj Interval history: She remains on the vent. She seems somewhat anxious. I asked her about chest pain shortness breath and she shook her head yes. Exam (Progress Note) - Constitutional Vitals: Period Temp Pulse Resp BP Sys/Johnson Pulse Ox Last 24 Hr 97.3 F-99.0 F 58-88 12-24 124-175/72-110 96-100 Exam: HEENT: Pupils equal, reactive to light and accommodation Neck: NoJVD or bruit Lungs clear to auscultation Heart: Regular rhythm rate with normal S1 and S2. Apical S4 Abdomen: No hepatosplenomegaly Spine/extremities: No clubbing, cyanosis, or edema Neuro: Sedated Psych: No depression or anxiety Result/EKG - Labs CBC & BMP: 01/17/17 04:37 01/17/17 04:37 Lab Results: I have reviewed the past 24 hour labs Labs: Laboratory Results - last 24 hr 01/17/17 01/17/17 01/17/17 03:40 04:37 04:37 WBC RBC Hgb Hct MCV MCH MCHC RDW Plt Count MPV Neut % (Auto) Lymph % (Auto) [place] % (Auto) Eos % (Auto) Baso % (Auto) Neut # (Auto) Lymph # (Auto) [place] # (Auto) Eos # (Auto) Baso # (Auto) Total Counted Immature Gran % Nucleated RBC % Immature Gran # Segmented Neutrophils Band Neutrophils Lymphocytes Monocytes Nucleated RBCs # Platelet Estimate Hypochromasia Microcytosis Ovalocytes ABG pH 7.520 H ABG pCO2 34.6 L ABG pO2 130.0 H ABG HCO3 29.4 H ABG Total CO2 24.5 ABG O2 Saturation 99.0 ABG Base Excess 5.5 H Sodium 145 Potassium 3.3 L Chloride 105 Carbon Dioxide 27 Anion Gap 16.3 H BUN 25 H Creatinine 1.00 GFR Calculation 72 BUN/Creatinine Ratio 25.00 H Glucose 188 H Calculated Osmolality 296.7 Calcium 8.0 L Magnesium 2.2 Total Bilirubin 1.30 H AST 49 H ALT 110 H Alkaline Phosphatase 72 Total Creatine Kinase CK-MB (CK-2) Troponin I B-Natriuretic Peptide 901 H Total Protein 6.1 L Albumin 2.9 L Globulin 3.2 Albumin/Globulin Ratio 0.9 L 01/17/17 01/17/17 04:37 11:51 WBC 13.4 H RBC 4.14 Hgb 12.6 Hct 38.4 MCV 92.8 MCH 30 MCHC 32.8 RDW 14.5 Plt Count 132 D MPV 11.4 Neut % (Auto) 93.0 H Lymph % (Auto) 3.1 L [place] % (Auto) 3.1 Eos % (Auto) 0.0 Baso % (Auto) 0.1 Neut # (Auto) 12.5 H Lymph # (Auto) 0.4 L [place] # (Auto) 0.4 Eos # (Auto) 0.0 Baso # (Auto) 0.0 Total Counted 100 Immature Gran % 0.7 Nucleated RBC % 0.0 Immature Gran # 0.09 Segmented Neutrophils 93 H Band Neutrophils 2 Lymphocytes 3 L Monocytes 2 Nucleated RBCs # 0.00 Platelet Estimate Adequate Hypochromasia 1+ Microcytosis 1+ Ovalocytes Slight ABG pH ABG pCO2 ABG pO2 ABG HCO3 ABG Total CO2 ABG O2 Saturation ABG Base Excess Sodium Potassium Chloride Carbon Dioxide Anion Gap BUN Creatinine GFR Calculation BUN/Creatinine Ratio Glucose Calculated Osmolality Calcium Magnesium Total Bilirubin AST ALT Alkaline Phosphatase Total Creatine Kinase 445 H D CK-MB (CK-2) 1.0 Troponin I 0.101 H D B-Natriuretic Peptide Total Protein Albumin Globulin Albumin/Globulin Ratio - Diagnostic Findings Procedure: Chest x-ray: report reviewed by me Quality Measures - VTE Deep Vein Thrombosis/Pulmonary Embolism Present on Admission: No Specialty Discharge - Follow Up or Referrals Follow up with: Fransico Eller MD [Physician] - (With her food service clerk in [place] or follow-up with me or 1 of the [facility] food service clerk in about 2-4 weeks after the patient gets out of the hospital--whatever is her and her 's preference is okay)
[2017-01-17] MEDS ORDERED: POTASSIUM CHLORIDE 20 MEQ/15 ML UDCUP PO ONE (12:59)
[2017-01-17] MEDS: INSULIN REGULAR 100 UNIT/ML SUBCUT SCH ×2 (13:53→18:34)
[2017-01-17] MEDS: NOREPINEPHRINE 8 MG in SODIUM CHLORIDE 0.9% 242 ML IV SCH (23:42)
[2017-01-18] MEDS: PROPOFOL 1,000 MG/100 ML BOTTLE IV SCH ×6 (00:01→23:08)
[2017-01-18] MEDS: PANTOPRAZOLE 40 MG VIAL IV SCH ×2 (00:02→23:48)
[2017-01-18] MEDS: cefTRIAXone 1,000 MG in SODIUM CHLORIDE 0.9% 100 ML IV SCH ×2 (00:02→23:48)
[2017-01-18] MEDS: methylPREDNISolone SOD SUC 125 MG/2 ML VIAL IV SCH ×4 (00:02→23:51)
[2017-01-18] MEDS: INSULIN REGULAR 100 UNIT/ML SUBCUT SCH ×5 (00:23→23:48)
[2017-01-18] MEDS: ALBUTEROL/IPRATROPIUM 3 ML NEB RESP TX SCH ×4 (01:07→18:31)
[2017-01-18 03:33] LABS: ABG Base Excess 8.3 MMOL/L (-2.5-2.5); ABG HCO3 30.2 MMOL/L (20-26); ABG Oxygen Saturation 98.8 % (95-100); ABG PCO2 32.9 MM HG (35-48); ABG PO2 143.4 MM HG (80-95); ABG TCO2 31.2 MMOL/L (23-27); Allen Test Positive; Pt O2 Delivery Device Ventilator
[2017-01-18] MEDS: DOXYCYCLINE HYCLATE INJ 100 MG in SODIUM CHLORIDE 0.9% 100 ML IV SCH ×2 (03:35→14:00)
[2017-01-18 05:43] LABS: Basophils % 0.1 % (0.0-0.8); Immature Granulocytes % 0.6 %; Lymphocytes # 0.4 10*3/uL (1.4-4.0); Lymphocytes % 2.6 % (21.3-54.2); Mean Corpuscular HGB Conc 33.3 GM/DL (32-36); Mean Corpuscular Hemoglobin 30 PG (27-34); Mean Corpuscular Volume 90.1 FL (87-102); Mean Platelet Volume 11.6 FL (9.6-12.0); Monocytes # 0.8 10*3/uL (0.11-0.8); Monocytes % 4.8 % (1.7-12.7); Neutrophils # 14.9 10*3/uL (1.4-7.4); Neutrophils % 91.9 % (38.7-73.9); Platelet Count 148 T/CUMM (130-400); Red Blood Count 4.66 MC/CUMM (3.8-5.5); Red Cell Distribution Width 14.6 % (9.3-17.3); White Blood Count 16.3 T/CUMM (4-12)
[2017-01-18 06:04] LABS: Hypochromasia 1+; Lymphocytes 1 % (20-55); Ovalocytes Slight; Platelet Estimate Normal; Segmented Neutrophils 95 % (50-85); Total Cells Counted 100
[2017-01-18 06:05] LABS: Microcytosis 1+
[2017-01-18 06:17] LABS: Albumin 3.1 G/DL (3.4-5.0); Bilirubin,Total 0.6 MG/DL (0.2-1.0); Calcium 8.1 MG/DL (8.5-10.1); Magnesium 2.3 MG/DL (1.8-2.4); Osmolality,Calculated 307.1 MOS/KG (273-304); Potassium 3.5 MMOL/L (3.5-5.1); Total Protein 6.3 G/DL (6.4-8.3)
--- NOTE | 2017-01-18 07:22 | XRay Report ---
XR chest 1V portable Indication: Intubated. Chest one view: Comparison yesterday. Endotracheal tube, NG tube, cardiomegaly, tortuous thoracic aorta are stable. Bibasilar opacities are relatively unchanged as well. No new densities. Impression: No significant change. PROCEDURE INTERPRETED AT [facility] ([facility]) DEPARTMENT OF RADIOLOGY Final Report Signed by: Finesse Aparicio M.D.
[2017-01-18] MEDS: FUROSEMIDE 40 MG/4 ML VIAL IV SCH ×2 (08:00→16:30)
[2017-01-18] MEDS: FONDAPARINUX 7.5 MG/0.6 ML SYRINGE SUBCUT SCH (09:00)
[2017-01-18] MEDS: ASPIRIN 325 MG TABLET PO SCH (09:00)
[2017-01-18] MEDS: CARVEDILOL 12.5 MG TABLET PO SCH (09:00)
[2017-01-18] MEDS: SACUBITRIL/VALSARTAN 49-51 MG TABLET PO SCH ×2 (09:00→20:18)
[2017-01-18] MEDS: SPIRONOLACTONE 25 MG TABLET PO SCH ×2 (09:00→20:19)
[2017-01-18] MEDS: MAGNESIUM OXIDE 400 MG TABLET NG SCH ×2 (09:00→20:19)
--- NOTE | 2017-01-18 10:18 | Cardiology Progress Note ---
Terrence Mason Vanessa RN, am scribing for, and in the presence of, Anna Marie Crump MD 10:17. Assessment and Plan - Time spent with patient Time spent with patient: Greater than 30 minutes (1) Heart failure, systolic and diastolic, acute on chronic Status: Acute Assessment and plan: Echocardiogram 01/14/17 with LV ejection fraction 30-40%, tricuspid regurgitation with PA pressure mmHg. Attempting to obtain previous echocardiogram records for comparison. We are awaiting records that her is going to retrieved to determine the chronicity of her cardiomyopathy. If this is a new diagnosis we may need to consider cardiac catheterization prior to her discharge. Current Visit: Yes (2) Acute respiratory failure Status: Acute Current Visit: Yes (3) Hypertension Status: Chronic Current Visit: Yes (4) Diabetes Status: Chronic Current Visit: Yes (5) COPD (chronic obstructive pulmonary disease) Status: Chronic Current Visit: Yes (6) History of atrial fibrillation Status: Chronic Current Visit: Yes (7) History of depression Status: Acute Current Visit: Yes (8) Elevated LFTs Status: Acute Current Visit: Yes (9) Elevated brain natriuretic peptide (BNP) level Status: Acute Current Visit: Yes (10) Elevated troponin Status: Acute Assessment and plan: These did not peak, overall have been gently trending downwards. They do not appear to represent an acute coronary syndrome. Current Visit: Yes Cardiology - PN: Subj Interval history: Patient is intubated and sedated in the ICU this morning. There have been no acute findings or cardiac changes and patient status overnight. Afebrile, blood pressure stable without the need for vasopressor support. CPAP trials as tolerated. Sinus bradycardia with pulse rate 50's. No ectopy or arrhythmia.WBC elevated at 16,300. Borderline hypokalemic at 3.5. Magnesium is 2.3. Continues to diurese well with IV Lasix therapy. When she stabilizes, depending on the chronicity of her cardiomyopathy we may need to consider cardiac catheterization if this is a new diagnosis. Exam (Progress Note) - Constitutional Vitals: Period Temp Pulse Resp BP Sys/Johnson Pulse Ox Last 24 Hr 97.0 F-98.7 F 49-67 12-24 116-168/71-101 97-100 Exam: General: Present: Other (intubated and sedated, appears comfortable on ventilator) Neck: Present: Supple Neck, Midline Trachea, No JVD/HJR, No Bruit Cardiac: Present: Reg Rate and Rhythm, S1/S2, Systolic Murmur (2/6 systolic ejection murmur along left lower sternal border.), Other (Occasional PVC). Absent: Tachycardia, Bradycardia Lungs: Present: Minimal bibasilar rales. Absent: rhonchi, wheeze Neuro: Present: Other (Unable to assess due to sedation with mechanical ventilation), she does track and nod her head to questions. Abdomen: Present: Soft, No Masses, No Pulsations/Bruits, Other (Obese) Skin: Present: Bruising (RUE); dry, warm Musculoskeletal: Present: Decreased Range of Motion Extremities: Present: No Clubbing, No Cyanosis, Normal Upper Extr. Pulses (3+ bilaterally), Normal Lower Extr. Pulses (2-3+ bilaterally), Capillary Refill (< 3 secs). Absent: Edema Result/EKG - Labs CBC & BMP: 01/18/17 04:53 01/18/17 04:53 Lab Results: I have reviewed the past 24 hour labs Labs: Laboratory Results - last 24 hr 01/17/17 01/17/17 01/18/17 11:51 17:34 00:05 WBC RBC Hgb Hct MCV MCH MCHC RDW Plt Count MPV Neut % (Auto) Lymph % (Auto) [place] % (Auto) Eos % (Auto) Baso % (Auto) Neut # (Auto) Lymph # (Auto) [place] # (Auto) Eos # (Auto) Baso # (Auto) Total Counted Immature Gran % Nucleated RBC % Immature Gran # Segmented Neutrophils Lymphocytes Monocytes Nucleated RBCs # Platelet Estimate Hypochromasia Microcytosis Ovalocytes Morphology Comment ABG pH ABG pCO2 ABG pO2 ABG HCO3 ABG Total CO2 ABG O2 Saturation ABG Base Excess FiO2 Sodium Potassium Chloride Carbon Dioxide Anion Gap BUN Creatinine GFR Calculation BUN/Creatinine Ratio Glucose POC Glucose 173 H 175 H Calculated Osmolality Calcium Magnesium Total Bilirubin AST ALT Alkaline Phosphatase Total Creatine Kinase 445 H D CK-MB (CK-2) 1.0 Troponin I 0.101 H D B-Natriuretic Peptide Total Protein Albumin Globulin Albumin/Globulin Ratio 01/18/17 01/18/17 01/18/17 03:15 04:53 04:53 WBC RBC Hgb Hct MCV MCH MCHC RDW Plt Count MPV Neut % (Auto) Lymph % (Auto) [place] % (Auto) Eos % (Auto) Baso % (Auto) Neut # (Auto) Lymph # (Auto) [place] # (Auto) Eos # (Auto) Baso # (Auto) Total Counted Immature Gran % Nucleated RBC % Immature Gran # Segmented Neutrophils Lymphocytes Monocytes Nucleated RBCs # Platelet Estimate Hypochromasia Microcytosis Ovalocytes Morphology Comment ABG pH 7.580 H ABG pCO2 32.9 L ABG pO2 143.4 H ABG HCO3 30.2 H ABG Total CO2 31.2 H ABG O2 Saturation 98.8 ABG Base Excess 8.3 H FiO2 50.00 Sodium 149 H Potassium 3.5 Chloride 107 Carbon Dioxide 30 Anion Gap 15.5 H BUN 33 H Creatinine 1.00 GFR Calculation 71 BUN/Creatinine Ratio 33.00 H Glucose 192 H POC Glucose Calculated Osmolality 307.1 H Calcium 8.1 L Magnesium 2.3 Total Bilirubin 0.60 AST 37 ALT 89 H Alkaline Phosphatase 74 Total Creatine Kinase CK-MB (CK-2) Troponin I B-Natriuretic Peptide 465 H Total Protein 6.3 L Albumin 3.1 L Globulin 3.2 Albumin/Globulin Ratio 0.9 L 01/18/17 01/18/17 04:53 05:56 WBC 16.3 H RBC 4.66 Hgb 14.0 Hct 42.0 MCV 90.1 MCH 30 MCHC 33.3 RDW 14.6 Plt Count 148 MPV 11.6 Neut % (Auto) 91.9 H Lymph % (Auto) 2.6 L [place] % (Auto) 4.8 Eos % (Auto) 0.0 Baso % (Auto) 0.1 Neut # (Auto) 14.9 H Lymph # (Auto) 0.4 L [place] # (Auto) 0.8 Eos # (Auto) 0.0 Baso # (Auto) 0.0 Total Counted 100 Immature Gran % 0.6 Nucleated RBC % 0.0 Immature Gran # 0.10 Segmented Neutrophils 95 H Lymphocytes 1 L Monocytes 4 Nucleated RBCs # 0.00 Platelet Estimate Normal Hypochromasia 1+ Microcytosis 1+ Ovalocytes Slight Morphology Comment ABG pH ABG pCO2 ABG pO2 ABG HCO3 ABG Total CO2 ABG O2 Saturation ABG Base Excess FiO2 Sodium Potassium Chloride Carbon Dioxide Anion Gap BUN Creatinine GFR Calculation BUN/Creatinine Ratio Glucose POC Glucose 187 H Calculated Osmolality Calcium Magnesium Total Bilirubin AST ALT Alkaline Phosphatase Total Creatine Kinase CK-MB (CK-2) Troponin I B-Natriuretic Peptide Total Protein Albumin Globulin Albumin/Globulin Ratio - Diagnostic Findings Procedure: Chest x-ray: image reviewed by me, report reviewed by me - EKG EKG results: interpreted by me EKG shows: bradycardia (Sinus bradycardia pulse rate upper 40s low 50s.) Quality Measures - VTE Deep Vein Thrombosis/Pulmonary Embolism Present on Admission: No Specialty Discharge - Follow Up or Referrals Follow up with: Fransico Eller MD [Physician] - (With her central aisle cashier in [place] or follow-up with me or [address] [facility] central aisle cashier in about 2-4 weeks after the patient gets out of the hospital--whatever is her and her 's preference is okay) I, Anna Marie Crump MD, personally performed the services described in this documentation, ascribed by Shawanda Ocampo RN in my presence, and it is both accurate and complete 018 .
--- NOTE | 2017-01-18 10:31 | Hospitalist Progress Note ---
Assessment and Plan (1) Acute respiratory failure Status: Acute Assessment and plan: 01/15/17 Patient has a history of asthma, she presented with SOB and allergic symptoms and was subsequently intubated. CT chest showed no evidence of PE but a dependent atelectatic parenchymal consolidation in either lower lobe. Small to moderate left greater than right pleural effusion 01/16/17: CXR showed interval worsening of the appearance of the bases Echocardiogram showed mildly dilated left ventricle with mild left ventricular hypertrophy and an ejection fraction of 30-40% range. There was some slight septal thickening. Mild mitral regurgitation and moderate aortic valve regurgitation were present. Left atrium was enlarged. Right ventricle is normal. Pulmonary artery pressures were elevated at 52 mmHg. Influenza A and B levels- negative Cultures-negative so far 01/17/2017 Chest x-ray shows pulmonary edema fairly large bilateral pleural effusions. Patient not doing well on weaning parameters. 01/18/2017 Patient will be undergoing CPAP trials today.CXR showed no significant change Plan Continue with IV Lasix Continue with vent support, IV steroids, nebs treatment, IV antibiotics Follow Pulm's recommendations Current Visit: Yes (2) Elevated troponin Status: Acute Assessment and plan: troponin level is trending downwards, Cardiology is following,continue current regime. Echo-noted Current Visit: Yes (3) History of atrial fibrillation Status: Chronic Assessment and plan: rate is controlled. She is currently in sinus. Follow Cardiology's recommendations Current Visit: Yes (4) Diabetes Status: Chronic Assessment and plan: Blood sugar is decent, continue current regime. HbA1c level-5.9, Lipids-noted, TSH-0.4. Continue to monitor levels using sliding scale Current Visit: Yes (5) Hypertension Status: Chronic Assessment and plan: Patient has been switched from Cozaar to Entresto .Cardiology has increased the dose. We will decrease the dose of Coreg due to bradycardia. Current Visit: Yes (6) History of depression Status: Acute Assessment and plan: will resume home meds when stable. Current Visit: Yes (7) CHF (congestive heart failure) Status: Acute Assessment and plan: Acute on chronic systolic failure Echo showed mildly to mederately increased left ventricular cavity size. Mild left ventricular hypertrophy. EF-30-40% moderately increased septal thickness. continue with ASA,Coreg, Aldactone, IV Lasix and Entresto -follow Cardiology's recommendations Current Visit: Yes (8) Thrombocytopenia Status: Acute Assessment and plan: Reason for using Arixtra instead of Lovenox. We will continue to monitor level. Current Visit: Yes (9) History of thyroid surgery Status: Acute Assessment and plan: TSH-0.417 Current Visit: Yes (10) Elevated LFTs Status: Acute Assessment and plan: -improving, may be secondary to HF. Hepatitis panel is negative,continue to monitor levels. Current Visit: Yes (11) Hypokalemia Status: Acute Assessment and plan: continue to replete, bmp, mg levels in am Current Visit: Yes Hospitalist: Subjective Interval history: Patient was awake on the vent, follows command.She will be undergoing CPAP trials today.Her heart rate drops in the low 40s when she is asleep. Exam - Constitutional Vitals: Period Temp Pulse Resp BP Sys/Johnson Pulse Ox Last 24 Hr 97.0 F-98.7 F 49-67 12-24 116-168/71-101 96-100 General appearance: no acute distress, other (awake on the vent) - Respiratory Respiratory exam: Present: decreased breath sounds - Cardiovascular Cardiovascular exam: Present: regular rate and rhythm - GI/Abdominal GI/Abdominal exam: Present: normal bowel sounds - Extremities Exam Extremities exam: Present: normal inspection - Neurological Exam Neurological exam: Present: other (awake but intubated) Results - Labs CBC & BMP: 01/18/17 04:53 01/18/17 04:53 Lab Results: I have reviewed the past 24 hour labs Quality Measures - VTE Deep Vein Thrombosis/Pulmonary Embolism Present on Admission: No Specialty Discharge - Follow Up or Referrals Follow up with: Fransico Eller MD [Physician] - (With her inclusion specialist in [place] or follow-up with me or 1 of the [facility] inclusion specialist in about 2-4 weeks after the patient gets out of the hospital--whatever is her and her 's preference is okay)
--- NOTE | 2017-01-18 11:04 | Pulmonology Progress Note ---
Pulmonary - PN: Subj Interval history: This is a 66-year-old white female whom I was asked to see in pulmonary consultation for evaluation and treatment and management of mechanical ventilation on 01/15/2017 My impressions were. 1. Acute respiratory arrest requiring intubation mechanical ventilation. Etiology is undetermined. The patient takes losartan. I do not see any evidence of angioedema. There is a history of asthma. Presently the patient is wheeze free. She has elevated BNP and chest x-ray shows increased interstitial markings which may be secondary to congestive heart failure. Note that the patient may have underlying sarcoidosis. So far there is no definite pneumonia seen on chest x-ray. 2. History of atrial fib and possible history of heart disease 3. Bilateral hilar lymph node enlargement. This has the appearance of so- called "potato nodes". This is probably sarcoidosis and may explain some increased interstitial markings. Keep in mind other possibilities. 4. History of asthma 5. History of depression 6. History of high blood pressure 7. Elevated liver function test etiology undetermined 8. Previous cholecystectomy 9. Past history of thyroid surgery 10. See past history 01/16/2017. Today's chest x-ray shows cardiomegaly. Vascular tumor is plump in the perihilar areas patient has bilateral pleural effusions all compatible with pulmonary edema. Endotracheal tube is in good position. BNP is elevated at 546. ABGs on mechanical ventilation FiO2 of 50% shows a pH 7.53, PCO2 32, PO2 of 124 and a bicarb of 28.8. There are no positive cultures. At the present time it looks like the major problem is congestive heart failure. Echocardiogram showed mildly dilated left ventricle with mild left ventricular hypertrophy and an ejection fraction of 30-40% range. There was some slight septal thickening. Mild mitral regurgitation and moderate aortic valve regurgitation were present. Left atrium was enlarged. Right ventricle is normal. Pulmonary artery pressures were elevated at 52 mmHg. 01/17/2017. Chest x-ray shows pulmonary edema fairly large bilateral pleural effusions. BNP is elevated 901. Potassium is low at 3.3. Creatinine is 1.0. BUNs 25. White count 13,400. H&H 12.6/38.4. Patient is on stage to the weaning protocol but is not tolerating this particularly well. We need to improve her pulmonary edema. 01/18/2017. Today's chest x-ray shows good improvement in her pulmonary edema. This is about 85% resolved. This should help with her weaning protocol. ABGs on mechanical ventilation FiO2 50% showed pH 7.58, PCO2 of 33, PO2 143 and a bicarb of 30. Sodium is 149, potassium 3.5, BUN is 1.0 with BUN of 33. Natruretic peptide is fallen from 901-465 white count 16,300. H&H is 14.0 and 42.0. Sputum sent 01/15/2017 are growing a gram-positive cocci. ID and sensitivities are not yet available. Physical exam. Vital signs. See below. No fever. Neck. Symmetrical no meningismus Lymphatics. No submandibular cervical supraclavicular or epitrochlear adenopathy. Chest. Stiff breath sounds Heart. Lateral PMI Abdomen. Rare bowel sounds Lower extremities. Mild chronic bilateral venous stasis changes. Neurologic. Moves all fours. The remainder the physical exam is Plan. 1. Echocardiogram. Ejection fraction 30-40% with mitral regurgitation pulmonary hypertension 2. Cardiology consultation 3. Agree with protocol antibiotics 4. Agree with steroids. 5. Daily chest x-ray, ABGs, lab 6. Mechanical ventilation weaning protocol 7. Physical therapy protocol while on mechanical ventilation. 8. Deep venous thrombophlebitis prevention protocol. 9. Proton pump inhibitor protocol. 10. See order 11. 01/16/2017. Have ordered Lasix 20 IV push every 8 hours. Will follow daily chest x-ray, ABGs, BMP, BNP 12. 01/17/2017. See today's note above. Patient is not doing well on the weaning protocol. We need better resolution of her pulmonary edema 13. 01/18/2007. Pulmonary edema is better. As this resolves we should be able to advance with the weaning protocol. Exam (Progress Note) - Constitutional Vitals: Period Temp Pulse Resp BP Sys/Johnson Pulse Ox Last 24 Hr 96.2 F-98.7 F 49-66 12- 116-168/71-103 96-100 Results - Labs CBC & BMP: 01/18/17 04:53 01/18/17 04:53 Specialty Discharge - Follow Up or Referrals Follow up with: Fransico Eller MD [Physician] - (With her outsole tacker in [place] or follow-up with md or 1 of the [facility] outsole tacker in about 2-4 weeks after the patient gets out of the hospital--whatever is her and her 's preference is okay)
[2017-01-18 13:19] LABS: Albumin 3.1 G/DL (3.4-5.0); Bilirubin,Total 0.9 MG/DL (0.2-1.0); Calcium 8.4 MG/DL (8.5-10.1); Osmolality,Calculated 308.3 MOS/KG (273-304); Potassium 3.5 MMOL/L (3.5-5.1); Total Protein 6.4 G/DL (6.4-8.3)
[2017-01-18 13:20] LABS: Troponin I Only 0.083 NG/ML (0.00-0.045)
[2017-01-18] MEDS: CARVEDILOL 3.125 MG TABLET PO SCH (20:18)
[2017-01-18] MEDS: NOREPINEPHRINE 8 MG in SODIUM CHLORIDE 0.9% 242 ML IV SCH (22:01)
[2017-01-19] MEDS: ALBUTEROL/IPRATROPIUM 3 ML NEB RESP TX SCH ×4 (01:10→19:35)
[2017-01-19 03:12] LABS: Basophils % 0.1 % (0.0-0.8); Hematocrit 44.6 VOL% (35.7-47.0); Hemoglobin 14.8 GM/DL (12.0-16.0); Immature Granulocytes % 0.8 %; Immature Granulocytes Absolute 0.12 #; Lymphocytes # 0.4 10*3/uL (1.4-4.0); Lymphocytes % 2.7 % (21.3-54.2); Mean Corpuscular HGB Conc 33.2 GM/DL (32-36); Mean Corpuscular Hemoglobin 31 PG (27-34); Mean Corpuscular Volume 92.3 FL (87-102); Mean Platelet Volume 11.4 FL (9.6-12.0); Monocytes # 0.7 10*3/uL (0.11-0.8); Monocytes % 4.6 % (1.7-12.7); Neutrophils # 14.5 10*3/uL (1.4-7.4); Neutrophils % 91.8 % (38.7-73.9); Platelet Count 163 T/CUMM (130-400); Red Blood Count 4.83 MC/CUMM (3.8-5.5); Red Cell Distribution Width 14.3 % (9.3-17.3); White Blood Count 15.8 T/CUMM (4-12)
[2017-01-19 03:49] LABS: Lymphocytes 3 % (20-55); Segmented Neutrophils 94 % (50-85)
[2017-01-19] MEDS: DOXYCYCLINE HYCLATE INJ 100 MG in SODIUM CHLORIDE 0.9% 100 ML IV SCH ×2 (03:54→14:00)
[2017-01-19 03:55] LABS: Elliptocytes 2+; Hypochromasia 1+; Platelet Estimate Normal
[2017-01-19 03:56] LABS: Total Cells Counted 100
[2017-01-19 04:09] LABS: Calcium 8.7 MG/DL (8.5-10.1); Magnesium 2.7 MG/DL (1.8-2.4); Osmolality,Calculated 309.7 MOS/KG (273-304); Potassium 3.8 MMOL/L (3.5-5.1)
[2017-01-19 04:30] LABS: ABG Base Excess 7.8 MMOL/L (-2.5-2.5); ABG HCO3 31.6 MMOL/L (20-26); ABG Oxygen Saturation 99.1 % (95-100); ABG PCO2 36.5 MM HG (35-48); ABG PH 7.533 (7.35-7.45); ABG TCO2 25.9 MMOL/L (23-27); Allen Test Positive; Pt O2 Delivery Device Ventilator
[2017-01-19] MEDS: PROPOFOL 1,000 MG/100 ML BOTTLE IV SCH ×4 (04:30→23:13)
[2017-01-19] MEDS: INSULIN REGULAR 100 UNIT/ML SUBCUT SCH ×4 (06:25→23:36)
[2017-01-19] MEDS: methylPREDNISolone SOD SUC 125 MG/2 ML VIAL IV SCH ×3 (06:26→23:26)
--- NOTE | 2017-01-19 07:26 | XRay Report ---
XR chest 1V portable Indication: Intubated. Chest one view: Since yesterday, endotracheal tube, NG tube, borderline cardiomegaly and low lung volumes are stable. There is a very slight improvement in aeration of the lung bases although the left hemidiaphragm remains obscured. Impression: Minimal improved aeration of the lung bases. PROCEDURE INTERPRETED AT [facility] DEPARTMENT OF RADIOLOGY Final Report Signed by: Finesse Aparicio M.D.
[2017-01-19] MEDS: FUROSEMIDE 40 MG/4 ML VIAL IV SCH (07:39)
[2017-01-19] MEDS: ASPIRIN 325 MG TABLET PO SCH (08:55)
[2017-01-19] MEDS: FONDAPARINUX 7.5 MG/0.6 ML SYRINGE SUBCUT SCH (08:55)
[2017-01-19] MEDS: SPIRONOLACTONE 25 MG TABLET PO SCH ×2 (08:55→21:24)
[2017-01-19] MEDS: MAGNESIUM OXIDE 400 MG TABLET NG SCH (08:55)
[2017-01-19] MEDS: SACUBITRIL/VALSARTAN 49-51 MG TABLET PO SCH ×2 (08:55→21:23)
[2017-01-19] MEDS: CARVEDILOL 3.125 MG TABLET PO SCH ×2 (08:55→21:24)
--- NOTE | 2017-01-19 10:43 | Pulmonology Progress Note ---
Pulmonary - PN: Subj Interval history: This is a 66-year-old white female whom I was asked to see in pulmonary consultation for evaluation and treatment and management of mechanical ventilation on 01/15/2017 My impressions were. 1. Acute respiratory arrest requiring intubation mechanical ventilation. Etiology is undetermined. The patient takes losartan. I do not see any evidence of angioedema. There is a history of asthma. Presently the patient is wheeze free. She has elevated BNP and chest x-ray shows increased interstitial markings which may be secondary to congestive heart failure. Note that the patient may have underlying sarcoidosis. So far there is no definite pneumonia seen on chest x-ray. 2. History of atrial fib and possible history of heart disease 3. Bilateral hilar lymph node enlargement. This has the appearance of so- called "potato nodes". This is probably sarcoidosis and may explain some increased interstitial markings. Keep in mind other possibilities. 4. History of asthma 5. History of depression 6. History of high blood pressure 7. Elevated liver function test etiology undetermined 8. Previous cholecystectomy 9. Past history of thyroid surgery 10. See past history 01/16/2017. Today's chest x-ray shows cardiomegaly. Vascular tumor is plump in the perihilar areas patient has bilateral pleural effusions all compatible with pulmonary edema. Endotracheal tube is in good position. BNP is elevated at 546. ABGs on mechanical ventilation FiO2 of 50% shows a pH 7.53, PCO2 32, PO2 of 124 and a bicarb of 28.8. There are no positive cultures. At the present time it looks like the major problem is congestive heart failure. Echocardiogram showed mildly dilated left ventricle with mild left ventricular hypertrophy and an ejection fraction of 30-40% range. There was some slight septal thickening. Mild mitral regurgitation and moderate aortic valve regurgitation were present. Left atrium was enlarged. Right ventricle is normal. Pulmonary artery pressures were elevated at 52 mmHg. 01/17/2017. Chest x-ray shows pulmonary edema fairly large bilateral pleural effusions. BNP is elevated 901. Potassium is low at 3.3. Creatinine is 1.0. BUNs 25. White count 13,400. H&H 12.6/38.4. Patient is on stage to the weaning protocol but is not tolerating this particularly well. We need to improve her pulmonary edema. 01/18/2017. Today's chest x-ray shows good improvement in her pulmonary edema. This is about 85% resolved. This should help with her weaning protocol. ABGs on mechanical ventilation FiO2 50% showed pH 7.58, PCO2 of 33, PO2 143 and a bicarb of 30. Sodium is 149, potassium 3.5, BUN is 1.0 with BUN of 33. Natruretic peptide is fallen from 901-465 white count 16,300. H&H is 14.0 and 42.0. Sputum sent 01/15/2017 are growing a gram-positive cocci. ID and sensitivities are not yet available. 01/19/2017. This patient is beginning to make some good progress with her weaning protocol. On 01/18/2017 she was able to do 8 hours of CPAP and we are going to shoot for 10-12 hours a day. She is tolerating tube feedings well I am restarting her Lyrica. Her sputum cultures have grown methicillin sensitive staph aureus. She is on the correct antibiotic for this when allowing for her allergies. I want to avoid pain medicines if I can. ABGs on mechanical ventilation FiO2 50% shows a pH 7.53. PCO2 36.5. PO2 is 135. Bicarb is 32. Electrolytes are normal. Creatinine is 1.1. BUN is 59. White count was 15, 800 with 92% segs. H&H is 14.8/44.6. Natruretic peptide is dropped 222 Physical exam. Vital signs. See below. No fever. Neck. Symmetrical no meningismus Lymphatics. No submandibular cervical supraclavicular or epitrochlear adenopathy. Chest. Stiff breath sounds Heart. Lateral PMI Abdomen. Rare bowel sounds Lower extremities. Mild chronic bilateral venous stasis changes. Neurologic. Moves all fours. The remainder the physical exam is Plan. 1. Echocardiogram. Ejection fraction 30-40% with mitral regurgitation pulmonary hypertension 2. Cardiology consultation 3. Agree with protocol antibiotics 4. Agree with steroids. 5. Daily chest x-ray, ABGs, lab 6. Mechanical ventilation weaning protocol 7. Physical therapy protocol while on mechanical ventilation. 8. Deep venous thrombophlebitis prevention protocol. 9. Proton pump inhibitor protocol. 10. See order 11. 01/16/2017. Have ordered Lasix 20 IV push every 8 hours. Will follow daily chest x-ray, ABGs, BMP, BNP 12. 01/17/2017. See today's note above. Patient is not doing well on the weaning protocol. We need better resolution of her pulmonary edema 13. 01/18/2017. Pulmonary edema is better. As this resolves we should be able to advance with the weaning protocol. 14. 01/19/2017. See above. Exam (Progress Note) - Constitutional Vitals: Period Temp Pulse Resp BP Sys/Johnson Pulse Ox Last 24 Hr 96.7 F-97.8 F 54-66 6-24 125-174/74-101 97-100 Results - Labs CBC & BMP: 01/19/17 03:06 01/19/17 03:06 Specialty Discharge - Follow Up or Referrals Follow up with: Fransico Eller MD [Physician] - (With her butcher helper in [place] or follow-up with me or 1 of the [facility] butcher helper in about 2-4 weeks after the patient gets out of the hospital--whatever is her and her 's preference is okay)
--- NOTE | 2017-01-19 11:00 | Cardiology Progress Note ---
Terrence Mason Vanessa, RN, am scribing for, and in the presence of, Anna Marie Crump MD 11:00. Assessment and Plan - Time spent with patient Time spent with patient: Greater than 30 minutes (1) Heart failure, systolic and diastolic, acute on chronic Status: Acute Assessment and plan: Echocardiogram 01/14/17 with LV ejection fraction 30-40%, tricuspid regurgitation with PA pressure mmHg. Attempting to obtain previous echocardiogram records for comparison. It is not clear at this time if this is new/significant decrease in ejection fraction. Continue diuresis with Aldactone and Lasix. Continue Entresto and beta ezekiel. We will decrease her Lasix. Current Visit: Yes (2) Acute respiratory failure Status: Acute Assessment and plan: CPAP trials as tolerated and they appear to be going well with positive advancement.. This is managed by pulmonology. Current Visit: Yes (3) Hypertension Status: Chronic Assessment and plan: Overall, these are fairly well-controlled. Continue current medication regimen. Current Visit: Yes (4) Diabetes Status: Chronic Current Visit: Yes (5) COPD (chronic obstructive pulmonary disease) Status: Chronic Current Visit: Yes (6) History of atrial fibrillation Status: Chronic Assessment and plan: No recurrence of atrial fibrillation since admission. She remains in a sinus rhythm. Current Visit: Yes (7) History of depression Status: Acute Current Visit: Yes (8) Elevated LFTs Status: Acute Current Visit: Yes (9) Elevated brain natriuretic peptide (BNP) level Status: Acute Current Visit: Yes (10) Elevated troponin Status: Acute Assessment and plan: Troponin levels have gently trended downward. No significant evidence for acute coronary syndrome. Current Visit: Yes Cardiology - PN: Subj Interval history: Patient remains intubated and sedated in the ICU this morning. CPAP trials as tolerated, and these appear to be going very well. She has remained in a sinus rhythm without ectopy or dysrhythmia, pulse rate is in the 60s. Some transient bradycardia with pulse rate no lower than 50 bpm. White blood cells with slight improvement 15,800 today, likely elevated from steroid administration. Sodium is 145, creatinine without significant increase and is 1.1 today with GFR of 63. Potassium is 3.8, and she is slightly hypermagnesemic at 2.7. BNP continues to trend downward and today is 222. Systolic BP overall stable and is ranging 135-145 mmHg. Some transient elevation with systolic blood pressure no greater than 166. I'm going to decrease her Lasix to once daily because her BUN to creatinine ratio is increasing, serum osmolality is increasing, chest x-ray continues to improve. She is likely becoming intravascularly depleted. Exam (Progress Note) - Constitutional Vitals: Period Temp Pulse Resp BP Sys/Johnson Pulse Ox Last 24 Hr 96.2 F-97.8 F 52-66 12-26 125-174/74-103 96-100 Exam: General: Present: Other (intubated and sedated, appears comfortable on ventilator) Neck: Present: Supple Neck, Midline Trachea, No JVD/HJR, No Bruit Cardiac: Present: Reg Rate and Rhythm, S1/S2, Systolic Murmur (2/6 systolic ejection murmur along left lower sternal border.), Other (Occasional PVC). Absent: Tachycardia Lungs: Present: Auscultation bilaterally anteriorly. Absent: rhonchi, wheeze Neuro: Present: Other (Unable to assess due to sedation with mechanical ventilation), she does track and nod her head to questions. Abdomen: Present: Soft, No Masses, No Pulsations/Bruits, Other (Obese) Skin: Present: Bruising (RUE); dry, warm Musculoskeletal: Present: Decreased Range of Motion Extremities: Present: No Clubbing, No Cyanosis, Normal Upper Extr. Pulses decreased in the bilateral lower extremities, , Capillary Refill (<3 secs). Absent: Edema Result/EKG - Labs CBC & BMP: 01/19/17 03:06 01/19/17 03:06 Lab Results: I have reviewed the past 24 hour labs Labs: Laboratory Results - last 24 hr 01/18/17 01/18/17 01/18/17 11:44 12:10 12:10 WBC RBC Hgb Hct MCV MCH MCHC RDW Plt Count MPV Neut % (Auto) Lymph % (Auto) Cottle % (Auto) Eos % (Auto) Baso % (Auto) Neut # (Auto) Lymph # (Auto) Cottle # (Auto) Eos # (Auto) Baso # (Auto) Total Counted Immature Gran % Nucleated RBC % Immature Gran # Segmented Neutrophils Lymphocytes Monocytes Nucleated RBCs # Platelet Estimate Hypochromasia Elliptocytes ABG pH ABG pCO2 ABG pO2 ABG HCO3 ABG Total CO2 ABG O2 Saturation ABG Base Excess FiO2 Sodium 148 H Potassium 3.5 Chloride 105 Carbon Dioxide 34 H Anion Gap 12.5 BUN 43 H D Creatinine 1.00 GFR Calculation 71 BUN/Creatinine Ratio 43.00 H Glucose 167 H POC Glucose 168 H Calculated Osmolality 308.3 H Calcium 8.4 L Magnesium Total Bilirubin 0.90 AST 37 ALT 91 H Alkaline Phosphatase 74 Total Creatine Kinase 232 H D CK-MB (CK-2) < 1.0 Troponin I 0.083 H B-Natriuretic Peptide Total Protein 6.4 Albumin 3.1 L Globulin 3.3 Albumin/Globulin Ratio 0.9 L 01/18/17 01/18/17 01/19/17 17:58 23:27 03:06 WBC RBC Hgb Hct MCV MCH MCHC RDW Plt Count MPV Neut % (Auto) Lymph % (Auto) Cottle % (Auto) Eos % (Auto) Baso % (Auto) Neut # (Auto) Lymph # (Auto) Cottle # (Auto) Eos # (Auto) Baso # (Auto) Total Counted Immature Gran % Nucleated RBC % Immature Gran # Segmented Neutrophils Lymphocytes Monocytes Nucleated RBCs # Platelet Estimate Hypochromasia Elliptocytes ABG pH ABG pCO2 ABG pO2 ABG HCO3 ABG Total CO2 ABG O2 Saturation ABG Base Excess FiO2 Sodium 145 Potassium 3.8 Chloride 104 Carbon Dioxide 29 Anion Gap 15.8 H BUN 59 H D Creatinine 1.10 H GFR Calculation 63 BUN/Creatinine Ratio 53.00 H Glucose 187 H POC Glucose 174 H 153 H Calculated Osmolality 309.7 H Calcium 8.7 Magnesium 2.7 H Total Bilirubin AST ALT Alkaline Phosphatase Total Creatine Kinase CK-MB (CK-2) Troponin I B-Natriuretic Peptide Total Protein Albumin Globulin Albumin/Globulin Ratio 01/19/17 01/19/17 01/19/17 03:06 03:06 04:22 WBC 15.8 H RBC 4.83 Hgb 14.8 Hct 44.6 MCV 92.3 MCH 31 MCHC 33.2 RDW 14.3 Plt Count 163 MPV 11.4 Neut % (Auto) 91.8 H Lymph % (Auto) 2.7 L Cottle % (Auto) 4.6 Eos % (Auto) 0.0 Baso % (Auto) 0.1 Neut # (Auto) 14.5 H Lymph # (Auto) 0.4 L Cottle # (Auto) 0.7 Eos # (Auto) 0.0 Baso # (Auto) 0.0 Total Counted 100 Immature Gran % 0.8 Nucleated RBC % 0.0 Immature Gran # 0.12 Segmented Neutrophils 94 H Lymphocytes 3 L Monocytes 3 Nucleated RBCs # 0.00 Platelet Estimate Normal Hypochromasia 1+ Elliptocytes 2+ ABG pH 7.533 H ABG pCO2 36.5 ABG pO2 135.0 H ABG HCO3 31.6 H ABG Total CO2 25.9 ABG O2 Saturation 99.1 ABG Base Excess 7.8 H FiO2 50.00 Sodium Potassium Chloride Carbon Dioxide Anion Gap BUN Creatinine GFR Calculation BUN/Creatinine Ratio Glucose POC Glucose Calculated Osmolality Calcium Magnesium Total Bilirubin AST ALT Alkaline Phosphatase Total Creatine Kinase CK-MB (CK-2) Troponin I B-Natriuretic Peptide 222 H Total Protein Albumin Globulin Albumin/Globulin Ratio 01/19/17 06:04 WBC RBC Hgb Hct MCV MCH MCHC RDW Plt Count MPV Neut % (Auto) Lymph % (Auto) Cottle % (Auto) Eos % (Auto) Baso % (Auto) Neut # (Auto) Lymph # (Auto) Cottle # (Auto) Eos # (Auto) Baso # (Auto) Total Counted Immature Gran % Nucleated RBC % Immature Gran # Segmented Neutrophils Lymphocytes Monocytes Nucleated RBCs # Platelet Estimate Hypochromasia Elliptocytes ABG pH ABG pCO2 ABG pO2 ABG HCO3 ABG Total CO2 ABG O2 Saturation ABG Base Excess FiO2 Sodium Potassium Chloride Carbon Dioxide Anion Gap BUN Creatinine GFR Calculation BUN/Creatinine Ratio Glucose POC Glucose 188 H Calculated Osmolality Calcium Magnesium Total Bilirubin AST ALT Alkaline Phosphatase Total Creatine Kinase CK-MB (CK-2) Troponin I B-Natriuretic Peptide Total Protein Albumin Globulin Albumin/Globulin Ratio - Diagnostic Findings Procedure: Chest x-ray: image reviewed by me, report reviewed by me (01/19/17: Minimally improved aeration of lung bases.) - EKG EKG results: interpreted by me, no acute changes EKG shows: sinus rhythm (Pulse rate overall 60s; does have some transient bradycardia with pulse rate upper 50s, but no overt ectopy is seen.) Quality Measures - VTE Deep Vein Thrombosis/Pulmonary Embolism Present on Admission: No Specialty Discharge - Follow Up or Referrals Follow up with: Fransico Eller MD [Physician] - (With her knitting inspector in [place] or follow-up with me or 1 of the [facility] knitting inspector in about 2-4 weeks after the patient gets out of the hospital--whatever is her and her 's preference is okay) I, Anna Marie Crump MD, personally performed the services described in this documentation, ascribed by Shawanda Ocampo RN in my presence, and it is both accurate and complete .
--- NOTE | 2017-01-19 11:25 | Hospitalist Progress Note ---
Assessment and Plan (1) Acute respiratory failure Status: Acute Assessment and plan: 01/15/17 Patient has a history of asthma, she presented with SOB and allergic symptoms and was subsequently intubated. CT chest showed no evidence of PE but a dependent atelectatic parenchymal consolidation in either lower lobe. Small to moderate left greater than right pleural effusion 01/16/17: CXR showed interval worsening of the appearance of the bases Echocardiogram showed mildly dilated left ventricle with mild left ventricular hypertrophy and an ejection fraction of 30-40% range. There was some slight septal thickening. Mild mitral regurgitation and moderate aortic valve regurgitation were present. Left atrium was enlarged. Right ventricle is normal. Pulmonary artery pressures were elevated at 52 mmHg. Influenza A and B levels- negative Cultures-negative so far 01/17/2017 Chest x-ray shows pulmonary edema fairly large bilateral pleural effusions. Patient not doing well on weaning parameters. 01/18/2017 Patient will be undergoing CPAP trials today.CXR showed no significant change 01/19/2017 Patient is tolerating CPAP trials, CXR showed minimal improved aeration of the lungs. Plan Continue with IV Lasix, vent support, IV steroids, nebs treatment, IV antibiotics Follow Pulm's recommendations Current Visit: Yes (2) Elevated troponin Status: Acute Assessment and plan: troponin level is trending downwards, Cardiology is following,continue current regime. Echocardiogram 01/14/17 with LV ejection fraction 30-40%, tricuspid regurgitation with PA pressure mmHg. Current Visit: Yes (3) History of atrial fibrillation Status: Chronic Assessment and plan: rate is controlled. She is currently in sinus. Follow Cardiology's recommendations Current Visit: Yes (4) Diabetes Status: Chronic Assessment and plan: Blood sugar is decent, continue current regime. HbA1c level-5.9, Lipids-noted, TSH-0.4. Continue to monitor levels using sliding scale Current Visit: Yes (5) Hypertension Status: Chronic Assessment and plan: Patient has been switched from Cozaar to Entresto .Cardiology has increased the dose. Continue lose dose Coreg as well BP is currently controlled Current Visit: Yes (6) History of depression Status: Acute Assessment and plan: resume home meds Current Visit: Yes (7) CHF (congestive heart failure) Status: Acute Assessment and plan: Acute on chronic systolic failure-improving Echo showed mildly to mederately increased left ventricular cavity size. Mild left ventricular hypertrophy. EF-30-40% moderately increased septal thickness. continue with ASA,Coreg, Aldactone, IV Lasix and Entresto -follow Cardiology's recommendations Current Visit: Yes (8) Thrombocytopenia Status: Acute Assessment and plan: Reason for using Arixtra instead of Lovenox. We will continue to monitor level. Current Visit: Yes (9) History of thyroid surgery Status: Acute Assessment and plan: TSH-0.417 Current Visit: Yes (10) Elevated LFTs Status: Acute Assessment and plan: -improving, may be secondary to HF. Hepatitis panel is negative,continue to monitor levels. Current Visit: Yes (11) Hypokalemia Status: Acute Assessment and plan: improved, bmp in am Current Visit: Yes Hospitalist: Subjective Interval history: Patient seen on the vent.She was awake and looked comfortable.She is tolerating CPAP trials.Her heart rate has improved since we reduced coreg. Exam - Constitutional Vitals: Period Temp Pulse Resp BP Sys/Johnson Pulse Ox Last 24 Hr 96.7 F-97.8 F 54-66 6-24 125-174/74-101 97-100 General appearance: no acute distress, other (awake but intubated) - Respiratory Respiratory exam: Present: clear to auscultation bilaterally - Cardiovascular Cardiovascular exam: Present: regular rate and rhythm - GI/Abdominal GI/Abdominal exam: Present: normal bowel sounds - Extremities Exam Extremities exam: Present: normal inspection Results - Labs CBC & BMP: 01/19/17 03:06 01/19/17 03:06 Lab Results: I have reviewed the past 24 hour labs Quality Measures - VTE Deep Vein Thrombosis/Pulmonary Embolism Present on Admission: No Specialty Discharge - Follow Up or Referrals Follow up with: Fransico Eller MD [Physician] - (With her profiling machine operator in [place] or follow-up with me or 1 of the [facility] profiling machine operator in about 2-4 weeks after the patient gets out of the hospital--whatever is her and her 's preference is okay)
[2017-01-19] MEDS: PREGABALIN 75 MG CAPSULE PO SCH ×2 (15:00→21:23)
[2017-01-19] MEDS: traZODone 50 MG TABLET PO SCH (21:23)
[2017-01-19] MEDS: NOREPINEPHRINE 8 MG in SODIUM CHLORIDE 0.9% 242 ML IV SCH (23:14)
[2017-01-19] MEDS: cefTRIAXone 1,000 MG in SODIUM CHLORIDE 0.9% 100 ML IV SCH (23:22)
[2017-01-19] MEDS: PANTOPRAZOLE 40 MG VIAL IV SCH (23:23)
[2017-01-20] MEDS: ALBUTEROL/IPRATROPIUM 3 ML NEB RESP TX SCH ×4 (01:41→19:41)
[2017-01-20] MEDS: DOXYCYCLINE HYCLATE INJ 100 MG in SODIUM CHLORIDE 0.9% 100 ML IV SCH ×2 (02:36→14:52)
[2017-01-20 03:28] LABS: Allen Test Positive; Pt O2 Delivery Device Ventilator
[2017-01-20 03:29] LABS: ABG Base Excess 5.9 MMOL/L (-2.5-2.5); ABG HCO3 29.7 MMOL/L (20-26); ABG Oxygen Saturation 99.2 % (95-100); ABG PCO2 34.5 MM HG (35-48); ABG PH 7.524 (7.35-7.45)
[2017-01-20 04:52] LABS: Basophils % 0.1 % (0.0-0.8); Hemoglobin 14.8 GM/DL (12.0-16.0); Immature Granulocytes % 0.9 %; Immature Granulocytes Absolute 0.15 #; Lymphocytes # 0.5 10*3/uL (1.4-4.0); Lymphocytes % 2.7 % (21.3-54.2); Mean Corpuscular HGB Conc 32.9 GM/DL (32-36); Mean Corpuscular Hemoglobin 31 PG (27-34); Mean Corpuscular Volume 92.6 FL (87-102); Mean Platelet Volume 11.2 FL (9.6-12.0); Monocytes # 0.7 10*3/uL (0.11-0.8); Monocytes % 4.3 % (1.7-12.7); Neutrophils # 15.3 10*3/uL (1.4-7.4); Platelet Count 201 T/CUMM (130-400); Red Blood Count 4.86 MC/CUMM (3.8-5.5); Red Cell Distribution Width 14.3 % (9.3-17.3); White Blood Count 16.7 T/CUMM (4-12)
[2017-01-20 05:10] LABS: Calcium 8.7 MG/DL (8.5-10.1); Osmolality,Calculated 317.6 MOS/KG (273-304); Potassium 3.9 MMOL/L (3.5-5.1)
[2017-01-20 05:17] LABS: Elliptocytes Few; Hypochromasia 1+; Lymphocytes 2 % (20-55); Platelet Estimate Normal; Segmented Neutrophils 96 % (50-85); Total Cells Counted 100
[2017-01-20] MEDS: INSULIN REGULAR 100 UNIT/ML SUBCUT SCH ×3 (06:10→18:13)
[2017-01-20] MEDS: PROPOFOL 1,000 MG/100 ML BOTTLE IV SCH ×3 (06:10→19:53)
[2017-01-20] MEDS: methylPREDNISolone SOD SUC 125 MG/2 ML VIAL IV SCH ×2 (06:11→14:52)
--- NOTE | 2017-01-20 07:13 | XRay Report ---
XR chest 1V portable Indication: Intubated. Chest one view: Since yesterday, endotracheal tube, NG tube, borderline cardiomegaly and hazy obscuration of the left lung base are stable. There is still reticular prominence of the lungs throughout. No new infiltrates are seen. Impression: No appreciable change. PROCEDURE INTERPRETED AT [facility] DEPARTMENT OF RADIOLOGY Final Report Signed by: Finesse Aparicio M.D.
[2017-01-20] MEDS: SPIRONOLACTONE 25 MG TABLET PO SCH ×2 (08:00→21:39)
[2017-01-20] MEDS: SACUBITRIL/VALSARTAN 49-51 MG TABLET PO SCH ×2 (08:00→21:39)
[2017-01-20] MEDS: FONDAPARINUX 7.5 MG/0.6 ML SYRINGE SUBCUT SCH (08:00)
[2017-01-20] MEDS: PREGABALIN 75 MG CAPSULE PO SCH ×3 (08:00→21:39)
[2017-01-20] MEDS: ASPIRIN 325 MG TABLET PO SCH (08:01)
[2017-01-20] MEDS: CARVEDILOL 3.125 MG TABLET PO SCH ×2 (08:01→21:39)
[2017-01-20] MEDS ORDERED: FUROSEMIDE 40 MG/4 ML VIAL IV SCH (09:00)
[2017-01-20] MEDS ORDERED: DULoxetine 30 MG CAPSULE PO SCH (09:00)
--- NOTE | 2017-01-20 10:30 | Pulmonology Progress Note ---
Pulmonary - PN: Subj Interval history: This is a 66-year-old white female whom I was asked to see in pulmonary consultation for evaluation and treatment and management of mechanical ventilation on 01/15/2017 My impressions were. 1. Acute respiratory arrest requiring intubation mechanical ventilation. Etiology is undetermined. The patient takes losartan. I do not see any evidence of angioedema. There is a history of asthma. Presently the patient is wheeze free. She has elevated BNP and chest x-ray shows increased interstitial markings which may be secondary to congestive heart failure. Note that the patient may have underlying sarcoidosis. So far there is no definite pneumonia seen on chest x-ray. 2. History of atrial fib and possible history of heart disease 3. Bilateral hilar lymph node enlargement. This has the appearance of so- called "potato nodes". This is probably sarcoidosis and may explain some increased interstitial markings. Keep in mind other possibilities. 4. History of asthma 5. History of depression 6. History of high blood pressure 7. Elevated liver function test etiology undetermined 8. Previous cholecystectomy 9. Past history of thyroid surgery 10. See past history 01/16/2017. Today's chest x-ray shows cardiomegaly. Vascular tumor is plump in the perihilar areas patient has bilateral pleural effusions all compatible with pulmonary edema. Endotracheal tube is in good position. BNP is elevated at 546. ABGs on mechanical ventilation FiO2 of 50% shows a pH 7.53, PCO2 32, PO2 of 124 and a bicarb of 28.8. There are no positive cultures. At the present time it looks like the major problem is congestive heart failure. Echocardiogram showed mildly dilated left ventricle with mild left ventricular hypertrophy and an ejection fraction of 30-40% range. There was some slight septal thickening. Mild mitral regurgitation and moderate aortic valve regurgitation were present. Left atrium was enlarged. Right ventricle is normal. Pulmonary artery pressures were elevated at 52 mmHg. 01/17/2017. Chest x-ray shows pulmonary edema fairly large bilateral pleural effusions. BNP is elevated 901. Potassium is low at 3.3. Creatinine is 1.0. BUNs 25. White count 13,400. H&H 12.6/38.4. Patient is on stage to the weaning protocol but is not tolerating this particularly well. We need to improve her pulmonary edema. 01/18/2017. Today's chest x-ray shows good improvement in her pulmonary edema. This is about 85% resolved. This should help with her weaning protocol. ABGs on mechanical ventilation FiO2 50% showed pH 7.58, PCO2 of 33, PO2 143 and a bicarb of 30. Sodium is 149, potassium 3.5, BUN is 1.0 with BUN of 33. Natruretic peptide is fallen from 901-465 white count 16,300. H&H is 14.0 and 42.0. Sputum sent 01/15/2017 are growing a gram-positive cocci. ID and sensitivities are not yet available. 01/19/2017. This patient is beginning to make some good progress with her weaning protocol. On 01/18/2017 she was able to do 8 hours of CPAP and we are going to shoot for 10-12 hours a day. She is tolerating tube feedings well I am restarting her Lyrica. Her sputum cultures have grown methicillin sensitive staph aureus. She is on the correct antibiotic for this when allowing for her allergies. I want to avoid pain medicines if I can. ABGs on mechanical ventilation FiO2 50% shows a pH 7.53. PCO2 36.5. PO2 is 135. Bicarb is 32. Electrolytes are normal. Creatinine is 1.1. BUN is 59. White count was 15, 800 with 92% segs. H&H is 14.8/44.6. Natruretic peptide is dropped 222 01/20/2017. This 66-year-old white female is making good progress on weaning trials. She is on stage V and it looks like she will go to stage -VII. Chest x-ray shows no masses no infiltrates and no congestive heart failure. ABGs on mechanical ventilation FiO2 50% showed pH of 7.52, PCO2 34.5, PO2 of 167 and a bicarb of 29.7. Electrolytes are normal. Creatinine is 1.0. BUN is at 75 patient's on Lasix 40 mg daily and I will stop this. Her H&H is stable so I do not expect suspect GI bleed as a cause for the increased BUN. White blood cell count is elevated at 16,792's. Sputum's are growing staph aureus. Physical exam. Vital signs. See below. No fever. Neck. Symmetrical no meningismus Lymphatics. No submandibular cervical supraclavicular or epitrochlear adenopathy. Chest. Stiff breath sounds Heart. Lateral PMI Abdomen. Rare bowel sounds Lower extremities. Mild chronic bilateral venous stasis changes. Neurologic. Moves all fours. The remainder the physical exam is Plan. 1. Echocardiogram. Ejection fraction 30-40% with mitral regurgitation pulmonary hypertension 2. Cardiology consultation 3. Agree with protocol antibiotics 4. Agree with steroids. 5. Daily chest x-ray, ABGs, lab 6. Mechanical ventilation weaning protocol 7. Physical therapy protocol while on mechanical ventilation. 8. Deep venous thrombophlebitis prevention protocol. 9. Proton pump inhibitor protocol. 10. See order 11. 01/16/2017. Have ordered Lasix 20 IV push every 8 hours. Will follow daily chest x-ray, ABGs, BMP, BNP 12. 01/17/2017. See today's note above. Patient is not doing well on the weaning protocol. We need better resolution of her pulmonary edema 13. 01/18/2017. Pulmonary edema is better. As this resolves we should be able to advance with the weaning protocol. 14. 01/19/2017. See above. Exam (Progress Note) - Constitutional Vitals: Period Temp Pulse Resp BP Sys/Johnson Pulse Ox Last 24 Hr 97.4 F-98.6 F 50-85 8-33 91-179/57-106 97-100 Results - Labs CBC & BMP: 01/20/17 04:19 01/20/17 04:19 Specialty Discharge - Follow Up or Referrals Follow up with: Fransico Eller MD [Physician] - (With her client hr manager in [place] or follow-up with me or 1 of the [facility] client hr manager in about 2-4 weeks after the patient gets out of the hospital--whatever is her and her 's preference is okay)
--- NOTE | 2017-01-20 11:19 | Hospitalist Progress Note ---
Assessment and Plan (1) Acute respiratory failure Status: Acute Assessment and plan: 01/15/17 Patient has a history of asthma, she presented with SOB and allergic symptoms and was subsequently intubated. CT chest showed no evidence of PE but a dependent atelectatic parenchymal consolidation in either lower lobe. Small to moderate left greater than right pleural effusion 01/16/17: CXR showed interval worsening of the appearance of the bases Echocardiogram showed mildly dilated left ventricle with mild left ventricular hypertrophy and an ejection fraction of 30-40% range. There was some slight septal thickening. Mild mitral regurgitation and moderate aortic valve regurgitation were present. Left atrium was enlarged. Right ventricle is normal. Pulmonary artery pressures were elevated at 52 mmHg. Influenza A and B levels- negative Cultures-negative so far 01/17/2017 Chest x-ray shows pulmonary edema fairly large bilateral pleural effusions. Patient not doing well on weaning parameters. 01/18/2017 Patient will be undergoing CPAP trials today.CXR showed no significant change 01/19/2017 Patient is tolerating CPAP trials, CXR showed minimal improved aeration of the lungs. 01/20/2017 Patient is undergoing weaning parameters. CXR showed no appreciable change Plan Continue with IV Lasix, vent support, IV steroids, nebs treatment, IV antibiotics Follow Pulm's recommendations Current Visit: Yes (2) Elevated troponin Status: Acute Assessment and plan: Troponin level is trending downwards, Cardiology is following,continue current regime. Echocardiogram 01/14/17 with LV ejection fraction 30-40%, tricuspid regurgitation with PA pressure mmHg. Current Visit: Yes (3) History of atrial fibrillation Status: Chronic Assessment and plan: rate is controlled. She is currently in sinus. Follow Cardiology's recommendations Current Visit: Yes (4) Diabetes Status: Chronic Assessment and plan: Blood sugar is creeping up, will add Lantus 10units qhs to sliding scale, and follow response.. HbA1c level-5.9, Lipids-noted, TSH-0.4. Current Visit: Yes (5) Hypertension Status: Chronic Assessment and plan: Blood pressure is creeping up. Will add Norvasc 5mg po daily, follow response. Current Visit: Yes (6) History of depression Status: Acute Assessment and plan: resume home meds when extubated, cymbalta cannot be crushed. Current Visit: Yes (7) CHF (congestive heart failure) Status: Acute Assessment and plan: Acute on chronic systolic failure-improving Echo showed mildly to mederately increased left ventricular cavity size. Mild left ventricular hypertrophy. EF-30-40% moderately increased septal thickness. continue with ASA,Coreg, Aldactone, IV Lasix and Entresto -follow Cardiology's recommendations Current Visit: Yes (8) Thrombocytopenia Status: Acute Assessment and plan: Reason for using Arixtra instead of Lovenox. We will continue to monitor level. Current Visit: Yes (9) History of thyroid surgery Status: Acute Assessment and plan: TSH-0.417 Current Visit: Yes (10) Elevated LFTs Status: Acute Assessment and plan: -improving, may be secondary to HF. Hepatitis panel is negative,continue to monitor levels. Current Visit: Yes (11) Hypokalemia Status: Acute Assessment and plan: improved, bmp in am Current Visit: Yes Hospitalist: Subjective Interval history: Patient seen on the vent. She is undergoing CPAP trials.Her blood pressure is creeping up. Exam - Constitutional Vitals: Period Temp Pulse Resp BP Sys/Johnson Pulse Ox Last 24 Hr 97.4 F-98.0 F 50-85 8-30 91-169/57-100 97-100 General appearance: no acute distress - Head Head exam: Present: normal inspection - Respiratory Respiratory exam: Present: clear to auscultation bilaterally - Cardiovascular Cardiovascular exam: Present: regular rate and rhythm - GI/Abdominal GI/Abdominal exam: Present: normal bowel sounds - Extremities Exam Extremities exam: Present: normal inspection - Neurological Exam Neurological exam: Present: other (intubated and sedated) Results - Labs CBC & BMP: 01/20/17 04:19 01/20/17 04:19 Lab Results: I have reviewed the past 24 hour labs Quality Measures - VTE Deep Vein Thrombosis/Pulmonary Embolism Present on Admission: No Specialty Discharge - Follow Up or Referrals Follow up with: Fransico Eller MD [Physician] - (With her school photographs detailer in [place] or follow-up with me or 1 of the [facility] school photographs detailer in about 2-4 weeks after the patient gets out of the hospital--whatever is her and her 's preference is okay)
[2017-01-20] MEDS ORDERED: amLODIPine 5 MG TABLET PO SCH (12:00)
[2017-01-20 12:22] LABS: Troponin I Only 0.131 NG/ML (0.00-0.045)
[2017-01-20] MEDS ORDERED: hydrALAZINE 20 MG/1 ML VIAL IV ONE (16:52)
--- NOTE | 2017-01-20 17:35 | Cardiology Progress Note ---
Terrence Mason Vanessa, RN, am scribing for, and in the presence of, Anna Marie Crump MD 17:35. Assessment and Plan - Time spent with patient Time spent with patient: Greater than 30 minutes (1) Heart failure, systolic and diastolic, acute on chronic Status: Acute Assessment and plan: Echocardiogram 01/14/17 with LV ejection fraction 30-40%, tricuspid regurgitation with PA pressure mmHg. Old records have now been obtained and reviewed. Apparently hospitalized in ICU at [facility] in [place], [place] in 2013 with hypotension and pericardial effusion. LV ejection fraction per echo during admission noted at 45%. Continue diuresis with Aldactone and Lasix. Continue Entresto and beta ezekiel. Current Visit: Yes (2) Acute respiratory failure Status: Acute Assessment and plan: CPAP trials as tolerated and they appear to be going well with continued positive advancement and will hopefully be extubated soon. This is managed by pulmonology. Current Visit: Yes (3) Hypertension Status: Chronic Assessment and plan: Not as well controlled. However, transient hypotension overnight with SBP no less than 90 which could possibly be related to sedation. Current Visit: Yes (4) Diabetes Status: Chronic Assessment and plan: Defer primary management to hospital medicine. Current Visit: Yes (5) COPD (chronic obstructive pulmonary disease) Status: Chronic Current Visit: Yes (6) History of atrial fibrillation Status: Chronic Assessment and plan: No recurrence of atrial fibrillation since admission. She remains in a sinus rhythm. Current Visit: Yes (7) History of depression Status: Acute Current Visit: Yes (8) Elevated LFTs Status: Acute Current Visit: Yes (9) Elevated brain natriuretic peptide (BNP) level Status: Acute Current Visit: Yes (10) Elevated troponin Status: Acute Assessment and plan: Troponin levels have gently trended downward. No significant evidence for acute coronary syndrome. Current Visit: Yes Cardiology - PN: Subj Interval history: Patient remains intubated in the ICU this morning. Sedation currently held while completing CPAP trial. More alert today, able to follow commands weakly, makes eye contact, nods head in response to questions. SBP 130-160 mmHg, DBP 90- 100 mmHg this morning. Some hypotension noted overnight. Old hospital records have been received from outlying facility. These have been reviewed. Labs reviewed. WBC trending back up today at 16,700. Potassium 3.9, hypermagnesemia seen again today and is increased to 3.0. Sodium 146, creatinine stable at 1.0. BNP previously trending downward is slightly elevated today at 392 (222 on 01/19) . No dysrhythmia per monitoring. Sinus bradycardia with pulse rate 50's. Chest x -ray this morning with no significant change. Exam (Progress Note) - Constitutional Vitals: Period Temp Pulse Resp BP Sys/Johnson Pulse Ox Last 24 Hr 97.4 F-98.0 F 50-85 8-30 91-169/57-100 97-100 Exam: General: Present: Other (intubated; sedation currently being held; appears comfortable on ventilator) Neck: Present: Supple Neck, Midline Trachea, No JVD/HJR, No Bruit Cardiac: Present: Reg Rate and Rhythm, S1/S2, Systolic Murmur (2/6 systolic ejection murmur along left lower sternal border.), Other (Occasional PVC). Absent: Tachycardia Lungs: Present: Auscultation bilaterally anteriorly. Absent: rhonchi, wheeze Neuro: Present: Other (Unable to assess due to sedation with mechanical ventilation), she does track and nod her head to questions. she is more awake today off sedation completing CPAP trial Abdomen: Present: Soft, No Masses, No Pulsations/Bruits, Other (Obese) Skin: Present: Bruising (RUE, LUE); dry, warm; BLE's Musculoskeletal: Present: Decreased Range of Motion Extremities: Present: No Clubbing, No Cyanosis, Normal Upper Extr. Pulses decreased in the bilateral lower extremities, cool to touch , Capillary Refill ( <3 secs). Absent: Edema Result/EKG - Labs CBC & BMP: 01/20/17 04:19 01/20/17 04:19 Lab Results: I have reviewed the past 24 hour labs Labs: Laboratory Results - last 24 hr 01/19/17 01/19/17 01/19/17 12:12 18:11 23:31 WBC RBC Hgb Hct MCV MCH MCHC RDW Plt Count MPV Neut % (Auto) Lymph % (Auto) [place] % (Auto) Eos % (Auto) Baso % (Auto) Neut # (Auto) Lymph # (Auto) [place] # (Auto) Eos # (Auto) Baso # (Auto) Total Counted Immature Gran % Nucleated RBC % Immature Gran # Segmented Neutrophils Lymphocytes Monocytes Nucleated RBCs # Platelet Estimate Hypochromasia Elliptocytes Morphology Comment ABG pH ABG pCO2 ABG pO2 ABG HCO3 ABG Total CO2 ABG O2 Saturation ABG Base Excess FiO2 Sodium Potassium Chloride Carbon Dioxide Anion Gap BUN Creatinine GFR Calculation BUN/Creatinine Ratio Glucose POC Glucose 168 H 153 H 181 H Calculated Osmolality Calcium Magnesium B-Natriuretic Peptide 01/20/17 01/20/17 01/20/17 03:14 04:19 04:19 WBC RBC Hgb Hct MCV MCH MCHC RDW Plt Count MPV Neut % (Auto) Lymph % (Auto) [place] % (Auto) Eos % (Auto) Baso % (Auto) Neut # (Auto) Lymph # (Auto) [place] # (Auto) Eos # (Auto) Baso # (Auto) Total Counted Immature Gran % Nucleated RBC % Immature Gran # Segmented Neutrophils Lymphocytes Monocytes Nucleated RBCs # Platelet Estimate Hypochromasia Elliptocytes Morphology Comment ABG pH 7.524 H ABG pCO2 34.5 L ABG pO2 167.0 H ABG HCO3 29.7 H ABG Total CO2 24.0 ABG O2 Saturation 99.2 ABG Base Excess 5.9 H FiO2 50.00 Sodium 146 H Potassium 3.9 Chloride 105 Carbon Dioxide 29 Anion Gap 15.9 H BUN 75 H Creatinine 1.00 GFR Calculation 71 BUN/Creatinine Ratio 75.00 H Glucose 210 H POC Glucose Calculated Osmolality 317.6 H Calcium 8.7 Magnesium 3.0 H B-Natriuretic Peptide 392 H 01/20/17 01/20/17 04:19 05:45 WBC 16.7 H RBC 4.86 Hgb 14.8 Hct 45.0 MCV 92.6 MCH 31 MCHC 32.9 RDW 14.3 Plt Count 201 D MPV 11.2 Neut % (Auto) 92.0 H Lymph % (Auto) 2.7 L [place] % (Auto) 4.3 Eos % (Auto) 0.0 Baso % (Auto) 0.1 Neut # (Auto) 15.3 H Lymph # (Auto) 0.5 L [place] # (Auto) 0.7 Eos # (Auto) 0.0 Baso # (Auto) 0.0 Total Counted 100 Immature Gran % 0.9 Nucleated RBC % 0.0 Immature Gran # 0.15 Segmented Neutrophils 96 H Lymphocytes 2 L Monocytes 2 Nucleated RBCs # 0.00 Platelet Estimate Normal Hypochromasia 1+ Elliptocytes Few Morphology Comment ABG pH ABG pCO2 ABG pO2 ABG HCO3 ABG Total CO2 ABG O2 Saturation ABG Base Excess FiO2 Sodium Potassium Chloride Carbon Dioxide Anion Gap BUN Creatinine GFR Calculation BUN/Creatinine Ratio Glucose POC Glucose 192 H Calculated Osmolality Calcium Magnesium B-Natriuretic Peptide - Diagnostic Findings Procedure: Chest x-ray: image reviewed by me, report reviewed by me (01/20: no significant change from 01/19 which showed slightly improved aeration of lower lobes, continued infiltrate left lung, borderline cardiomegaly) - EKG EKG results: interpreted by me EKG shows: bradycardia (sinus bradycardia, pulse rate 50's; no pAF) Quality Measures - VTE Deep Vein Thrombosis/Pulmonary Embolism Present on Admission: No Specialty Discharge - Follow Up or Referrals Follow up with: Fransico Eller MD [Physician] - (With her rn transitional care in [place] or follow-up with me or 1 of the [facility] rn transitional care in about 2-4 weeks after the patient gets out of the hospital--whatever is her and her 's preference is okay) I, Anna Marie Crump MD, personally performed the services described in this documentation, ascribed by Shawanda Ocampo RN in my presence, and it is both accurate and complete [id number] .
[2017-01-20] MEDS: amLODIPine 10 MG TABLET PO SCH (17:36)
[2017-01-20] MEDS: traZODone 50 MG TABLET PO SCH (21:39)
[2017-01-20] MEDS: INSULIN GLARGINE 100 UNIT/ML SUBCUT SCH (21:40)
[2017-01-21] MEDS: ALBUTEROL/IPRATROPIUM 3 ML NEB RESP TX SCH ×4 (00:39→19:27)
[2017-01-21] MEDS: cefTRIAXone 1,000 MG in SODIUM CHLORIDE 0.9% 100 ML IV SCH ×2 (01:08→22:58)
[2017-01-21] MEDS: PANTOPRAZOLE 40 MG VIAL IV SCH ×2 (01:08→22:54)
[2017-01-21] MEDS: methylPREDNISolone SOD SUC 125 MG/2 ML VIAL IV SCH ×4 (01:09→22:57)
[2017-01-21] MEDS: INSULIN REGULAR 100 UNIT/ML SUBCUT SCH ×5 (01:09→23:59)
[2017-01-21] MEDS: PROPOFOL 1,000 MG/100 ML BOTTLE IV SCH ×4 (01:31→22:53)
[2017-01-21] MEDS: DOXYCYCLINE HYCLATE INJ 100 MG in SODIUM CHLORIDE 0.9% 100 ML IV SCH ×2 (02:09→15:22)
[2017-01-21 04:56] LABS: ABG Base Excess 6.5 MMOL/L (-2.5-2.5); ABG HCO3 30.4 MMOL/L (20-26); ABG Oxygen Saturation 99.7 % (95-100); ABG PCO2 32.2 MM HG (35-48); ABG PH 7.554 (7.35-7.45); ABG TCO2 23.9 MMOL/L (23-27); Pt O2 Delivery Device Ventilator
[2017-01-21 05:15] LABS: Basophils % 0.2 % (0.0-0.8); Hematocrit 42.9 VOL% (35.7-47.0); Hemoglobin 14.3 GM/DL (12.0-16.0); Immature Granulocytes % 1.3 %; Immature Granulocytes Absolute 0.26 #; Lymphocytes # 0.6 10*3/uL (1.4-4.0); Lymphocytes % 3.2 % (21.3-54.2); Mean Corpuscular HGB Conc 33.3 GM/DL (32-36); Mean Corpuscular Hemoglobin 30 PG (27-34); Mean Corpuscular Volume 90.3 FL (87-102); Mean Platelet Volume 11.4 FL (9.6-12.0); Monocytes % 5.1 % (1.7-12.7); Neutrophils % 90.2 % (38.7-73.9); Platelet Count 218 T/CUMM (130-400); Red Blood Count 4.75 MC/CUMM (3.8-5.5); Red Cell Distribution Width 14.1 % (9.3-17.3); White Blood Count 19.9 T/CUMM (4-12)
[2017-01-21 05:38] LABS: Hypochromasia 1+; Lymphocytes 2 % (20-55); Ovalocytes Slight; Platelet Estimate Normal; Segmented Neutrophils 93 % (50-85); Total Cells Counted 100
[2017-01-21 05:45] LABS: Calcium 8.6 MG/DL (8.5-10.1); Osmolality,Calculated 316.8 MOS/KG (273-304); Potassium 4.6 MMOL/L (3.5-5.1)
[2017-01-21 05:46] LABS: Calcium 8.6 MG/DL (8.5-10.1); Osmolality,Calculated 312.3 MOS/KG (273-304); Potassium 4.6 MMOL/L (3.5-5.1)
--- NOTE | 2017-01-21 07:00 | XRay Report ---
XR chest 1V portable Indication: Intubated. Chest one view: Since yesterday, endotracheal tube, NG tube, cardiomegaly, calcified atheromatous disease of the aorta, significant opacification of the left lung base and interstitial prominence of both lungs again shown. No new infiltrates are present. Impression: No change. PROCEDURE INTERPRETED AT [facility], [place] DEPARTMENT OF RADIOLOGY Final Report Signed by: Finesse Aparicio M.D.
[2017-01-21] MEDS: PREGABALIN 75 MG CAPSULE PO SCH ×3 (08:49→21:17)
[2017-01-21] MEDS: ASPIRIN 325 MG TABLET PO SCH (08:49)
[2017-01-21] MEDS: amLODIPine 10 MG TABLET PO SCH (08:49)
[2017-01-21] MEDS: SPIRONOLACTONE 25 MG TABLET PO SCH ×2 (08:49→21:18)
[2017-01-21] MEDS: SACUBITRIL/VALSARTAN 49-51 MG TABLET PO SCH ×2 (08:49→21:17)
[2017-01-21] MEDS: FONDAPARINUX 7.5 MG/0.6 ML SYRINGE SUBCUT SCH (08:50)
[2017-01-21] MEDS: CARVEDILOL 3.125 MG TABLET PO SCH ×2 (08:50→21:17)
--- NOTE | 2017-01-21 10:01 | Hospitalist Progress Note ---
Assessment and Plan (1) Acute respiratory failure Status: Acute Assessment and plan: 01/15/17 Patient has a history of asthma, she presented with SOB and allergic symptoms and was subsequently intubated. CT chest showed no evidence of PE but a dependent atelectatic parenchymal consolidation in either lower lobe. Small to moderate left greater than right pleural effusion 01/16/17: CXR showed interval worsening of the appearance of the bases Echocardiogram showed mildly dilated left ventricle with mild left ventricular hypertrophy and an ejection fraction of 30-40% range. There was some slight septal thickening. Mild mitral regurgitation and moderate aortic valve regurgitation were present. Left atrium was enlarged. Right ventricle is normal. Pulmonary artery pressures were elevated at 52 mmHg. Influenza A and B levels- negative Cultures-negative so far 01/17/2017 Chest x-ray shows pulmonary edema fairly large bilateral pleural effusions. Patient not doing well on weaning parameters. 01/18/2017 Patient will be undergoing CPAP trials today.CXR showed no significant change 01/19/2017 Patient is tolerating CPAP trials, CXR showed minimal improved aeration of the lungs. 01/20/2017 Patient is undergoing weaning parameters. CXR showed no appreciable change 01/21/2017 patient tolerating weaning parameters. CXR showed no change Plan Continue with IV Lasix, vent support, IV steroids, nebs treatment, IV antibiotics Follow Pulm's recommendations Current Visit: Yes (2) Elevated troponin Status: Acute Assessment and plan: Troponin level is trending downwards, Cardiology is following,continue current regime. Echocardiogram 01/14/17 with LV ejection fraction 30-40%, tricuspid regurgitation with PA pressure mmHg. Current Visit: Yes (3) History of atrial fibrillation Status: Chronic Assessment and plan: rate is controlled. She is currently in sinus. Follow Cardiology's recommendations Current Visit: Yes (4) Diabetes Status: Chronic Assessment and plan: Blood sugar is better controlled.continue with current regime. HbA1c level-5.9 , Lipids-noted, TSH-0.4. Current Visit: Yes (5) Hypertension Status: Chronic Assessment and plan: Blood pressure is better controlled. continue with current regime. Current Visit: Yes (6) History of depression Status: Acute Assessment and plan: resume home meds when extubated, cymbalta cannot be crushed. Current Visit: Yes (7) CHF (congestive heart failure) Status: Acute Assessment and plan: Acute on chronic systolic and diastolic failure-improving Echo showed mildly to mederately increased left ventricular cavity size. Mild left ventricular hypertrophy. EF-30-40% moderately increased septal thickness. continue with ASA,Coreg, Aldactone, IV Lasix and Entresto -follow Cardiology's recommendations Current Visit: Yes (8) Thrombocytopenia Status: Acute Assessment and plan: Reason for using Arixtra instead of Lovenox. We will continue to monitor level. Current Visit: Yes (9) History of thyroid surgery Status: Acute Assessment and plan: TSH-0.417 Current Visit: Yes (10) Elevated LFTs Status: Acute Assessment and plan: -improving, may be secondary to HF. Hepatitis panel is negative,continue to monitor levels. Current Visit: Yes (11) Hypokalemia Status: Acute Assessment and plan: improved, bmp in am Current Visit: Yes Hospitalist: Subjective Interval history: Patient looks comfortable on the vent.. She is tolerating CPAP trials and may be having T-tube trials today.CXR showed no change. Exam - Constitutional Vitals: Period Temp Pulse Resp BP Sys/Johnson Pulse Ox Last 24 Hr 97.7 F-98.8 F 51-84 8-32 78-178/53-122 90-100 General appearance: no acute distress, other (intubated and sedated) - Respiratory Respiratory exam: Present: clear to auscultation bilaterally - Cardiovascular Cardiovascular exam: Present: regular rate and rhythm - GI/Abdominal GI/Abdominal exam: Present: normal bowel sounds - Extremities Exam Extremities exam: Present: normal inspection Results - Labs CBC & BMP: 01/21/17 04:24 01/21/17 04:24 Lab Results: I have reviewed the past 24 hour labs Quality Measures - VTE Deep Vein Thrombosis/Pulmonary Embolism Present on Admission: No Specialty Discharge - Follow Up or Referrals Follow up with: Fransico Eller MD [Physician] - (With her rn behavioral health in [place] or follow-up with me or 1 of the [facility] rn behavioral health in about 2-4 weeks after the patient gets out of the hospital--whatever is her and her 's preference is okay)
--- NOTE | 2017-01-21 11:39 | Pulmonology Progress Note ---
Pulmonary - PN: Subj Interval history: Surjit Fragoso, ANP-BC, GNP-BC, acting as scribe for Dr. Yamil Burrows This is a 66-year-old white female we were asked to see in pulmonary consultation for evaluation and treatment and management of mechanical ventilation on 01/15/2017 At the time of our initial consultation, our impressions were: 1. Acute respiratory arrest requiring intubation mechanical ventilation. Etiology is undetermined. The patient takes losartan. I do not see any evidence of angioedema. There is a history of asthma. Presently the patient is wheeze free. She has elevated BNP and chest x-ray shows increased interstitial markings which may be secondary to congestive heart failure. Note that the patient may have underlying sarcoidosis. So far there is no definite pneumonia seen on chest x-ray. 2. History of atrial fib and possible history of heart disease 3. Bilateral hilar lymph node enlargement. This has the appearance of so- called "potato nodes". This is probably sarcoidosis and may explain some increased interstitial markings. Keep in mind other possibilities. 4. History of asthma 5. History of depression 6. History of high blood pressure 7. Elevated liver function test etiology undetermined 8. Previous cholecystectomy 9. Past history of thyroid surgery 10. See past history 01/16/2017. Today's chest x-ray shows cardiomegaly. Vascular tumor is plump in the perihilar areas patient has bilateral pleural effusions all compatible with pulmonary edema. Endotracheal tube is in good position. BNP is elevated at 546. ABGs on mechanical ventilation FiO2 of 50% shows a pH 7.53, PCO2 32, PO2 of 124 and a bicarb of 28.8. There are no positive cultures. At the present time it looks like the major problem is congestive heart failure. Echocardiogram showed mildly dilated left ventricle with mild left ventricular hypertrophy and an ejection fraction of 30-40% range. There was some slight septal thickening. Mild mitral regurgitation and moderate aortic valve regurgitation were present. Left atrium was enlarged. Right ventricle is normal. Pulmonary artery pressures were elevated at 52 mmHg. 01/17/2017. Chest x-ray shows pulmonary edema fairly large bilateral pleural effusions. BNP is elevated 901. Potassium is low at 3.3. Creatinine is 1.0. BUNs 25. White count 13,400. H&H 12.6/38.4. Patient is on stage to the weaning protocol but is not tolerating this particularly well. We need to improve her pulmonary edema. 01/18/2017. Today's chest x-ray shows good improvement in her pulmonary edema. This is about 85% resolved. This should help with her weaning protocol. ABGs on mechanical ventilation FiO2 50% showed pH 7.58, PCO2 of 33, PO2 143 and a bicarb of 30. Sodium is 149, potassium 3.5, BUN is 1.0 with BUN of 33. Natruretic peptide is fallen from 901-465 white count 16,300. H&H is 14.0 and 42.0. Sputum sent 01/15/2017 are growing a gram-positive cocci. ID and sensitivities are not yet available. 01/19/2017. This patient is beginning to make some good progress with her weaning protocol. On 01/18/2017 she was able to do 8 hours of CPAP and we are going to shoot for 10-12 hours a day. She is tolerating tube feedings well I am restarting her Lyrica. Her sputum cultures have grown methicillin sensitive staph aureus. She is on the correct antibiotic for this when allowing for her allergies. I want to avoid pain medicines if I can. ABGs on mechanical ventilation FiO2 50% shows a pH 7.53. PCO2 36.5. PO2 is 135. Bicarb is 32. Electrolytes are normal. Creatinine is 1.1. BUN is 59. White count was 15, 800 with 92% segs. H&H is 14.8/44.6. Natruretic peptide is dropped 222 01/20/2017. This 66-year-old white female is making good progress on weaning trials. She is on stage V and it looks like she will go to stage -VII. Chest x-ray shows no masses no infiltrates and no congestive heart failure. ABGs on mechanical ventilation FiO2 50% showed pH of 7.52, PCO2 34.5, PO2 of 167 and a bicarb of 29.7. Electrolytes are normal. Creatinine is 1.0. BUN is at 75 patient's on Lasix 40 mg daily and I will stop this. Her H&H is stable so I do not expect suspect GI bleed as a cause for the increased BUN. White blood cell count is elevated at 16,792's. Sputum's are growing staph aureus. 01/21/2017. Today we had a long discussion with the patient's regarding her illness and prognosis. All of his questions were answered to his understanding. She is on the ventilator and being weaned per the protocol. She is done very well and is on stage today. We are progressing as tolerated. Hopefully, we should be able to extubate her in the next few days. Today's chest x-ray is stable. Medications have been reviewed. We made no changes today. Labs been reviewed. White count is 19,900 with 90.2% segs; H&H 14.3/42.9; platelet count 218,000; creatinine 1.20, BUN 87, sodium 141, potassium 4.6, magnesium 3.0 Exam (Progress Note) - Constitutional Vitals: Period Temp Pulse Resp BP Sys/Johnson Pulse Ox Last 24 Hr 97.7 F-98.8 F 51-84 8-32 78-178/53-122 90-100 Exam: Chest with stiff breath sounds Heart with a lateral PMI Abdomen nondistended; rare bowel sounds Lower extremities show chronic venous stasis changes bilaterally, nothing to suggest acute deep venous thrombophlebitis Psychiatric/neurologic unchanged Plan: Continue weaning per the protocol. Daily chest x-ray and ABGs while on the ventilator. See orders. Results - Labs CBC & BMP: 01/21/17 04:24 01/21/17 04:24 Specialty Discharge - Follow Up or Referrals Follow up with: Fransico Eller MD [Physician] - (With her skip locator in [place] or follow-up with me or 1 of the [facility] skip locator in about 2-4 weeks after the patient gets out of the hospital--whatever is her and her 's preference is okay)
[2017-01-21] MEDS: hydrALAZINE 20 MG/1 ML VIAL IV PRN (15:25)
[2017-01-21] MEDS: traZODone 50 MG TABLET PO SCH (21:17)
[2017-01-21] MEDS: INSULIN GLARGINE 100 UNIT/ML SUBCUT SCH (21:19)
--- NOTE | 2017-01-21 23:15 | Cardiology Progress Note ---
Terrence Mason Vanessa, RN, am scribing for, and in the presence of, Anna Marie Crump MD 23:14. Assessment and Plan - Time spent with patient Time spent with patient: Greater than 30 minutes (1) Heart failure, systolic and diastolic, acute on chronic Status: Acute Assessment and plan: Echocardiogram 01/14/17 with LV ejection fraction 30-40%, tricuspid regurgitation with PA pressure mmHg. Old records have now been obtained and reviewed. Apparently hospitalized in ICU at [facility] in [place], [place] in 2013 with hypotension and pericardial effusion. LV ejection fraction per echo during admission noted at 45%. Continue diuresis with Aldactone and Lasix. Continue Entresto and beta ezekiel. Current Visit: Yes (2) Acute respiratory failure Status: Acute Assessment and plan: CPAP trials as tolerated and they appear to be going well with continued positive advancement and will hopefully be extubated soon. This is managed by pulmonology. Current Visit: Yes (3) Hypertension Status: Chronic Assessment and plan: Not as well controlled. However, transient hypotension overnight with SBP no less than 90 which could possibly be related to sedation. Current Visit: Yes (4) Diabetes Status: Chronic Assessment and plan: Defer primary management to hospital medicine. Current Visit: Yes (5) COPD (chronic obstructive pulmonary disease) Status: Chronic Current Visit: Yes (6) History of atrial fibrillation Status: Chronic Assessment and plan: No recurrence of atrial fibrillation since admission. She remains in a sinus rhythm. Current Visit: Yes (7) History of depression Status: Acute Current Visit: Yes (8) Elevated LFTs Status: Acute Current Visit: Yes (9) Elevated brain natriuretic peptide (BNP) level Status: Acute Current Visit: Yes (10) Elevated troponin Status: Acute Assessment and plan: Troponin levels have gently trended downward. No significant evidence for acute coronary syndrome. Current Visit: Yes Cardiology - PN: Subj Interval history: She remains intubated in the ICU this morning. Sedation is currently held and she is doing CPAP trial today. She appears comfortable. These have gone well and had to be extubated soon. No new findings or acute cardiac changes and patient status overnight. WBC elevated to 19,900 from 16,700. H&H is stable. Sodium 141, potassium 4.6 and magnesium remains at 3.0. SBP 110-140 mm/Hg. Chest x-ray without significant improvement but no new infiltrate is seen today. Sinus bradycardia with pulse rate in the 50s. No atrial fibrillation or other dysrhythmia is seen. Exam (Progress Note) - Constitutional Vitals: Period Temp Pulse Resp BP Sys/Johnson Pulse Ox Last 24 Hr 97.7 F-98.8 F 51-84 8-33 78-179/53-122 90-100 Exam: General: Present: Other (intubated; sedation currently being held; appears comfortable on ventilator) Neck: Present: Supple Neck, Midline Trachea, No JVD/HJR, No Bruit Cardiac: Present: Reg Rate and Rhythm, S1/S2, Systolic Murmur (2/6 systolic ejection murmur along left lower sternal border.), Other (Occasional PVC). Absent: Tachycardia Lungs: Present: Auscultation bilaterally anteriorly. Absent: rhonchi, wheeze Neuro: Present: Other (Unable to assess due to sedation with mechanical ventilation), she does track and nod her head to questions. she is more awake today off sedation completing CPAP trial Abdomen: Present: Soft, No Masses, No Pulsations/Bruits, Other (Obese) Skin: Present: Bruising (RUE, LUE); dry, warm; BLE's Musculoskeletal: Present: Decreased Range of Motion Extremities: Present: No Clubbing, No Cyanosis, Normal Upper Extr. Pulses decreased in the bilateral lower extremities, cool to touch , Capillary Refill ( <3 secs). Absent: Edema Result/EKG - Labs CBC & BMP: 01/21/17 04:24 01/21/17 04:24 Lab Results: I have reviewed the past 24 hour labs Labs: Laboratory Results - last 24 hr 01/20/17 01/20/17 01/20/17 11:41 11:42 16:45 WBC RBC Hgb Hct MCV MCH MCHC RDW Plt Count MPV Neut % (Auto) Lymph % (Auto) [place] % (Auto) Eos % (Auto) Baso % (Auto) Neut # (Auto) Lymph # (Auto) [place] # (Auto) Eos # (Auto) Baso # (Auto) Total Counted Immature Gran % Nucleated RBC % Immature Gran # Segmented Neutrophils Lymphocytes Monocytes Nucleated RBCs # Platelet Estimate Hypochromasia Ovalocytes Morphology Comment ABG pH ABG pCO2 ABG pO2 ABG HCO3 ABG Total CO2 ABG O2 Saturation ABG Base Excess FiO2 Sodium Potassium Chloride Carbon Dioxide Anion Gap BUN Creatinine GFR Calculation BUN/Creatinine Ratio Glucose POC Glucose 158 H 155 H Calculated Osmolality Calcium Magnesium Total Creatine Kinase 157 D CK-MB (CK-2) < 1.0 Troponin I 0.131 H D 01/21/17 01/21/17 01/21/17 00:51 04:24 04:24 WBC 19.9 H RBC 4.75 Hgb 14.3 Hct 42.9 MCV 90.3 MCH 30 MCHC 33.3 RDW 14.1 Plt Count 218 MPV 11.4 Neut % (Auto) 90.2 H Lymph % (Auto) 3.2 L [place] % (Auto) 5.1 Eos % (Auto) 0.0 Baso % (Auto) 0.2 Neut # (Auto) 18.0 H Lymph # (Auto) 0.6 L [place] # (Auto) 1.0 H Eos # (Auto) 0.0 Baso # (Auto) 0.0 Total Counted 100 Immature Gran % 1.3 Nucleated RBC % 0.0 Immature Gran # 0.26 Segmented Neutrophils 93 H Lymphocytes 2 L Monocytes 5 Nucleated RBCs # 0.00 Platelet Estimate Normal Hypochromasia 1+ Ovalocytes Slight Morphology Comment ABG pH ABG pCO2 ABG pO2 ABG HCO3 ABG Total CO2 ABG O2 Saturation ABG Base Excess FiO2 Sodium 144 Potassium 4.6 Chloride 105 Carbon Dioxide 30 Anion Gap 13.6 BUN 86 H Creatinine 1.20 H GFR Calculation 57 BUN/Creatinine Ratio 71.00 H Glucose 195 H POC Glucose 168 H Calculated Osmolality 316.8 H Calcium 8.6 Magnesium Total Creatine Kinase CK-MB (CK-2) Troponin I 01/21/17 01/21/17 01/21/17 04:24 04:24 04:40 WBC RBC Hgb Hct MCV MCH MCHC RDW Plt Count MPV Neut % (Auto) Lymph % (Auto) [place] % (Auto) Eos % (Auto) Baso % (Auto) Neut # (Auto) Lymph # (Auto) [place] # (Auto) Eos # (Auto) Baso # (Auto) Total Counted Immature Gran % Nucleated RBC % Immature Gran # Segmented Neutrophils Lymphocytes Monocytes Nucleated RBCs # Platelet Estimate Hypochromasia Ovalocytes Morphology Comment ABG pH 7.554 H ABG pCO2 32.2 L ABG pO2 176.0 H ABG HCO3 30.4 H ABG Total CO2 23.9 ABG O2 Saturation 99.7 ABG Base Excess 6.5 H FiO2 50.00 Sodium 141 Potassium 4.6 Chloride 104 Carbon Dioxide 30 Anion Gap 11.6 BUN 87 H Creatinine 1.20 H GFR Calculation 57 BUN/Creatinine Ratio 72.00 H Glucose 195 H POC Glucose 179 H Calculated Osmolality 312.3 H Calcium 8.6 Magnesium 3.0 H Total Creatine Kinase CK-MB (CK-2) Troponin I 01/21/17 06:06 WBC RBC Hgb Hct MCV MCH MCHC RDW Plt Count MPV Neut % (Auto) Lymph % (Auto) [place] % (Auto) Eos % (Auto) Baso % (Auto) Neut # (Auto) Lymph # (Auto) [place] # (Auto) Eos # (Auto) Baso # (Auto) Total Counted Immature Gran % Nucleated RBC % Immature Gran # Segmented Neutrophils Lymphocytes Monocytes Nucleated RBCs # Platelet Estimate Hypochromasia Ovalocytes Morphology Comment ABG pH ABG pCO2 ABG pO2 ABG HCO3 ABG Total CO2 ABG O2 Saturation ABG Base Excess FiO2 Sodium Potassium Chloride Carbon Dioxide Anion Gap BUN Creatinine GFR Calculation BUN/Creatinine Ratio Glucose POC Glucose 162 H Calculated Osmolality Calcium Magnesium Total Creatine Kinase CK-MB (CK-2) Troponin I - EKG EKG results: interpreted by me, no acute changes EKG shows: sinus rhythm Quality Measures - VTE Deep Vein Thrombosis/Pulmonary Embolism Present on Admission: No Specialty Discharge - Follow Up or Referrals Follow up with: Fransico Eller MD [Physician] - (With her inspector semiconductor wafer in [place] or follow-up with me or 1 of the [facility] inspector semiconductor wafer in about 2-4 weeks after the patient gets out of the hospital--whatever is her and her 's preference is okay) I, Anna Marie Crump MD, personally performed the services described in this documentation, ascribed by Shawanda Ocampo RN in my presence, and it is both accurate and complete 314 .
[2017-01-22] MEDS: ALBUTEROL/IPRATROPIUM 3 ML NEB RESP TX SCH ×3 (00:07→13:00)
[2017-01-22] MEDS: hydrALAZINE 20 MG/1 ML VIAL IV PRN (01:47)
[2017-01-22 02:47] LABS: ABG Base Excess -0.9 MMOL/L (-2.5-2.5); ABG HCO3 23.7 MMOL/L (20-26); ABG Oxygen Saturation 99.4 % (95-100); ABG PCO2 35.2 MM HG (35-48); ABG PH 7.422 (7.35-7.45); ABG TCO2 19.4 MMOL/L (23-27); Allen Test Positive; Pt O2 Delivery Device Ventilator
[2017-01-22] MEDS: DOXYCYCLINE HYCLATE INJ 100 MG in SODIUM CHLORIDE 0.9% 100 ML IV SCH (03:37)
--- NOTE | 2017-01-22 06:39 | Event Note ---
I was called by nursing saying all IV access was lost. Patient was requiring pressors. We got consent over the phone from her . I cleaned and draped the area in a sterile fashion involving right sternocleidomastoid. With the aid of ultrasound I was able to find the IJ. Good venous blood return was noted. A wire was placed over the needle. The needle was retracted. The area was dilated and a triple-lumen catheter was placed over the wire. Good venous blood return was noted on all 3 ports. The line was stitched in. Chest x-ray was ordered. Estimated blood loss is 10 cc
[2017-01-22] MEDS: NOREPINEPHRINE 8 MG in SODIUM CHLORIDE 0.9% 242 ML IV SCH (06:40)
[2017-01-22 06:56] LABS: Basophils # 0.1 10*3/uL (0.0-0.2); Basophils % 0.2 % (0.0-0.8); Hematocrit 46.2 VOL% (35.7-47.0); Hemoglobin 14.8 GM/DL (12.0-16.0); Immature Granulocytes % 6.3 %; Immature Granulocytes Absolute 1.71 #; Lymphocytes # 0.6 10*3/uL (1.4-4.0); Lymphocytes % 2.1 % (21.3-54.2); Mean Corpuscular Hemoglobin 31 PG (27-34); Mean Corpuscular Volume 95.9 FL (87-102); Mean Platelet Volume 11.3 FL (9.6-12.0); Monocytes # 3.4 10*3/uL (0.11-0.8); Monocytes % 12.4 % (1.7-12.7); NRBC # 0.02 10*3/uL; Neutrophils # 21.6 10*3/uL (1.4-7.4); Platelet Count 208 T/CUMM (130-400); Red Blood Count 4.82 MC/CUMM (3.8-5.5); White Blood Count 27.4 T/CUMM (4-12)
[2017-01-22] MEDS: INSULIN REGULAR 100 UNIT/ML SUBCUT SCH ×2 (07:13→12:06)
--- NOTE | 2017-01-22 07:13 | XRay Report ---
XR chest 1V portable Indication: Central line placement. Chest one view: Comparison 0254 hours. Right IJ central line is now present tip at the RA-SVC junction. Endotracheal tube, NG tube, normal heart size, tortuous thoracic aorta and pulmonary hypoinflation are stable. No pneumothorax. Impression: New central line as described. PROCEDURE INTERPRETED AT [facility] DEPARTMENT OF RADIOLOGY Final Report Signed by: Finesse Aparicio M.D.
--- NOTE | 2017-01-22 07:18 | XRay Report ---
XR chest 1V portable Indication: Intubated. Chest one view: Since yesterday, endotracheal tube, NG tube, normal heart size, tortuous thoracic aorta and interstitial prominence of the lungs is stable. Left lung base is better aerated. Impression: Improved aeration left lung base. PROCEDURE INTERPRETED AT [facility] DEPARTMENT OF RADIOLOGY Final Report Signed by: Finesse Aparicio M.D.
[2017-01-22] MEDS: methylPREDNISolone SOD SUC 125 MG/2 ML VIAL IV SCH (07:19)
[2017-01-22 07:22] LABS: Band Neutrophils 2 % (0-10); Elliptocytes Few; Hypochromasia 1+; Lymphocytes 3 % (20-55); Myelocytes 1 %; Platelet Estimate Normal; Segmented Neutrophils 82 % (50-85); Total Cells Counted 100
[2017-01-22] MEDS ORDERED: PHENYLEPHRINE DRIP 40 MG/250 ML PREMIX IV SCH (08:00)
[2017-01-22 08:08] LABS: Albumin 2.7 G/DL (3.4-5.0); Bilirubin,Total 2.1 MG/DL (0.2-1.0); Calcium 8.1 MG/DL (8.5-10.1); Osmolality,Calculated 317.3 MOS/KG (273-304); Total Protein 5.8 G/DL (6.4-8.3)
[2017-01-22 08:12] LABS: Potassium 7.4 MMOL/L (3.5-5.1)
[2017-01-22] MEDS ORDERED: PHENYLEPHRINE DRIP 40 MG/250 ML PREMIX IV ONE (08:18)
[2017-01-22] MEDS ORDERED: CALCIUM GLUCONATE 1,000 MG/10 ML VIAL IV ONE ×3 (08:18→08:32)
[2017-01-22] MEDS ORDERED: SODIUM BICARBONATE 50 MEQ/50 ML SYRINGE IV ONE ×4 (08:18→10:00)
[2017-01-22] MEDS ORDERED: DEXTROSE 50% 25 GM/50 ML VIAL IV ONE ×2 (08:24→08:32)
[2017-01-22] MEDS ORDERED: INSULIN REGULAR 100 UNIT/ML IV ONE ×2 (08:24→08:32)
[2017-01-22] MEDS ORDERED: CALCIUM GLUCONATE 1,000 MG in SODIUM CHLORIDE 0.9% 100 ML IV ONE ×3 (08:25→11:00)
[2017-01-22] MEDS ORDERED: MAGNESIUM SULFATE 1 GM/2 ML VIAL IV ONE (08:36)
[2017-01-22] MEDS ORDERED: AMIODARONE 150 MG/3 ML VIAL IV ONE (08:36)
[2017-01-22] MEDS ORDERED: AMIODARONE 150 MG/3 ML VIAL ONE (08:36)
[2017-01-22] MEDS ORDERED: SODIUM BICARBONATE 50 MEQ/50 ML VIAL IV ONE (09:00)
[2017-01-22] MEDS ORDERED: SODIUM POLYSTYRENE SULFATE 15 GM/60 ML BOTTLE PO ONE (09:04)
[2017-01-22] MEDS ORDERED: DOPamine 800 MG/250 ML PREMIX IV SCH (09:07)
[2017-01-22] MEDS ORDERED: HEPARIN/NACL 0.9% 2 UNITS/ML 500 ML IV ONE (09:22)
[2017-01-22] MEDS ORDERED: SODIUM CHLORIDE 0.9% 2,000 ML IV ONE (09:24)
[2017-01-22] MEDS: FONDAPARINUX 7.5 MG/0.6 ML SYRINGE SUBCUT SCH (09:30)
[2017-01-22] MEDS: SACUBITRIL/VALSARTAN 49-51 MG TABLET PO SCH (09:30)
[2017-01-22] MEDS: amLODIPine 10 MG TABLET PO SCH (09:30)
[2017-01-22] MEDS: CARVEDILOL 3.125 MG TABLET PO SCH (09:30)
[2017-01-22] MEDS: SPIRONOLACTONE 25 MG TABLET PO SCH (09:30)
[2017-01-22] MEDS: ASPIRIN 325 MG TABLET PO SCH (09:30)
[2017-01-22] MEDS: PREGABALIN 75 MG CAPSULE PO SCH (09:30)
[2017-01-22] MEDS ORDERED: LINEZOLID INJ 600 MG in PREMIX 1 EACH IV SCH (09:30)
[2017-01-22 09:41] LABS: Lactic Acid 7.9 MMOL/L (0.4-2.0)
[2017-01-22 09:56] LABS: Alanine Aminotransferase 7657 U/L (13-56); Albumin 1.6 G/DL (3.4-5.0); Alkaline Phosphatase 102 U/L (45-117); Aspartate Amino Transferase 6657 U/L (0-37); Blood Urea Nitrogen 103 MG/DL (7-18); Calcium 7.7 MG/DL (8.5-10.1); Glucose 331 MG/DL (74-106); Osmolality,Calculated 332.7 MOS/KG (273-304); Sodium 145 MMOL/L (136-145); Total Protein 3.5 G/DL (6.4-8.3)
[2017-01-22 09:58] LABS: Potassium 7.1 MMOL/L (3.5-5.1)
[2017-01-22] MEDS ORDERED: AZTREONAM 500 MG in SODIUM CHLORIDE 0.9% 100 ML IV SCH (10:00)
[2017-01-22] MEDS ORDERED: PHENYLEPHRINE INJ 160 MG in SODIUM CHLORIDE 0.9% 234 ML IV SCH (10:00)
[2017-01-22] MEDS ORDERED: NOREPINEPHRINE 16 MG in SODIUM CHLORIDE 0.9% 234 ML IV SCH (10:00)
[2017-01-22 10:05] LABS: Basophils % 0.1 % (0.0-0.8); Hematocrit 31.8 VOL% (35.7-47.0); Immature Granulocytes % 10.9 %; Immature Granulocytes Absolute 3.03 #; Lymphocytes # 0.9 10*3/uL (1.4-4.0); Lymphocytes % 3.3 % (21.3-54.2); Mean Corpuscular HGB Conc 32.1 GM/DL (32-36); Mean Corpuscular Hemoglobin 31 PG (27-34); Mean Platelet Volume 11.8 FL (9.6-12.0); Monocytes # 2.6 10*3/uL (0.11-0.8); Monocytes % 9.4 % (1.7-12.7); NRBC # 0.03 10*3/uL; Neutrophils # 21.2 10*3/uL (1.4-7.4); Neutrophils % 76.3 % (38.7-73.9); White Blood Count 27.8 T/CUMM (4-12)
[2017-01-22 10:06] LABS: Red Blood Count 3.28 MC/CUMM (3.8-5.5)
[2017-01-22 10:07] LABS: Hemoglobin 10.2 GM/DL (12.0-16.0); Platelet Count 144 T/CUMM (130-400)
[2017-01-22 10:16] LABS: ABG Base Excess -7.7 MMOL/L (-2.5-2.5); ABG HCO3 18.2 MMOL/L (20-26); ABG Oxygen Saturation 97.8 % (95-100); ABG PCO2 31.2 MM HG (35-48); ABG PH 7.346 (7.35-7.45); ABG TCO2 15.5 MMOL/L (23-27)
--- NOTE | 2017-01-22 10:17 | Anesthesia ---
Anesthesia Procedures - Arterial Line Consent obtained arterial line: written consent Time out performed arterial line: Yes Size (Gauge): 20 Technique used arterial line: guide wire technique (AUTOFACT sonosite was used to id left radial artery) Post-Procedure: line sutured into place Patient tolerated procedure arterial line: well Complications art line: none Site: left
--- NOTE | 2017-01-22 10:26 | Cardiology Progress Note ---
<Isamar Weber E - Last Filed: 01/22/17 10:00> Assessment and Plan - Time spent with patient Time spent with patient: Greater than 30 minutes (1) Acute respiratory failure Status: Acute Assessment and plan: SEE PLAN OF CARE LISTED BELOW Current Visit: Yes (2) Hypertension Status: Chronic Assessment and plan: SEE PLAN OF CARE LISTED BELOW Current Visit: Yes (3) Diabetes Status: Chronic Assessment and plan: SEE PLAN OF CARE LISTED BELOW Current Visit: Yes (4) COPD (chronic obstructive pulmonary disease) Status: Chronic Assessment and plan: SEE PLAN OF CARE LISTED BELOW Current Visit: Yes (5) History of atrial fibrillation Status: Chronic Assessment and plan: SEE PLAN OF CARE LISTED BELOW Current Visit: Yes (6) Elevated troponin Status: Chronic Assessment and plan: SEE PLAN OF CARE LISTED BELOW Current Visit: Yes (7) Elevated liver enzymes Status: Acute Assessment and plan: SEE PLAN OF CARE LISTED BELOW Current Visit: Yes (8) Heart failure, systolic and diastolic, acute on chronic Status: Acute Assessment and plan: SEE PLAN OF CARE LISTED BELOW Current Visit: Yes (9) Type 2 diabetes mellitus Status: Chronic Assessment and plan: SEE PLAN OF CARE LISTED BELOW Current Visit: Yes Cardiology - PN: Subj Interval history: Late entry patient was seen earlier this morning around 0845. Patient is being seen in the ICU with Dr. Crump. Called to the room this morning for arrhythmia, hypotension. During the night, patient was placed on Levophed for hypotension. This morning, it is reported that she had a ventricular tachycardia episode (possibly torsades) and then a wide complex rhythm. She was found to be hyperkalemic with potassium of 7.4, creatinine increased overnight from 1.2-2.6. Liver enzymes are extremely elevated. Patient was treated with medications to correct her hyperkalemia and her rhythm began to reveal a more narrow complex. Dopamine was initiated, choice of pressor at this time, in an effort to increase her heart rate. White blood cell count increased overnight to 27.4. It is felt that she may be experiencing a sepsis type picture causing hypotension, subsequently causing hyperkalemia from tissue breakdown, acute renal injury. ASSESSMENT/PLAN: 1. ACUTE ON CHRONIC SYSTOLIC CONGESTIVE HEART FAILURE, CLASS IV - continue supportive measures 2. ACUTE RESPIRATORy FAILURE -currently on mechanical ventilator. 3. HYPERKALEMIA -being treated accordingly. Await repeat lab 4. ACUTE ON CHRONIC RENAL FAILURE, STAGE IV -adding dobutamine to increase heart rate, hopefully perfuse kidneys better. Continue to follow her labs closely. Suspect her acute renal failure is related to sepsis type picture 5. SHOCK LIVER -holding any hepatotoxic drugs. Suspect this is related to the sepsis picture 6. SUSPECTED SEPSIS -panculture labs, urine, chest x-ray. Cover with appropriate antibiotics accordingly 7. HYPOTENSION -continue supporting with vasopressors 8. DIABETES -continue with sliding scale 9. COPD -continue current plan of care 10. HISTORY OF ATRIAL FIBRILLATION -continue current plan of care 11. ELEVATED TROPONIN -initially was elevated on admission 0.362. I suspect that repeat labs will show an even higher troponin is that she has experienced significant hypotension with worsening of chronic renal insufficiency. We will continue to follow her EKGs accordingly. Suspect this is not an acute coronary syndrome but simply response to sepsis. Exam (Progress Note) - Constitutional Vitals: Period Temp Pulse Resp BP Sys/Johnson Pulse Ox Last 24 Hr 96.3 F-98.9 F 60-88 8-32 64-174/00-115 94-100 Exam: General: [Appears ill.] [Mechanically intubated. ] HEENT: [Normocephalic, atraumatic. Mucous membranes moist. Yellow sclera. ] Neck: No JVD/HJR, no thyromegaly or lymphadenopathy noted. No carotid bruit appreciated Cardiac: [Slow rhythm and rate] [No obvious murmur rub or gallop.] . Lungs: [. Rhonchi noted throughout] no tracheal deviation noted Abdomen: Soft, bowel sounds are hypoactive. Tender to palpation right upper quadrant of the abdomen mid epigastric area. Musculoskeletal: No fluid collection. Decreased range of motion is noted. Extremities: No clubbing, cyanosis noted. [Trace bilateral lower extremity edema with SCDs on Upper extremity pulses 2+. Lower extremity pulses 1+. Capillary refill less than 3 seconds. Skin: No unusual lesions or rashes. No skin breakdown appreciated. Neuro: Sedated and therefore unable to follow commands at this time. No obvious hemiparesis or paralysis. No tremor noted . Result/EKG - Labs CBC & BMP: 01/22/17 06:45 01/22/17 09:00 Lab Results: I have reviewed the past 24 hour labs Labs: Laboratory Results - last 24 hr 03/01/21/17 01/21/17 11:44 18:12 23:43 WBC RBC Hgb Hct MCV MCH MCHC RDW Plt Count MPV Neut % (Auto) Lymph % (Auto) [place] % (Auto) Eos % (Auto) Baso % (Auto) Neut # (Auto) Lymph # (Auto) [place] # (Auto) Eos # (Auto) Baso # (Auto) Total Counted Immature Gran % Nucleated RBC % Immature Gran # Segmented Neutrophils Band Neutrophils Lymphocytes Monocytes Myelocytes Nucleated RBCs # Platelet Estimate Hypochromasia Elliptocytes Morphology Comment ABG pH ABG pCO2 ABG pO2 ABG HCO3 ABG Total CO2 ABG O2 Saturation ABG Base Excess FiO2 Sodium Potassium Chloride Carbon Dioxide Anion Gap BUN Creatinine GFR Calculation BUN/Creatinine Ratio Glucose POC Glucose 147 H 182 H 236 H Calculated Osmolality Lactic Acid Calcium Total Bilirubin AST ALT Alkaline Phosphatase Total Creatine Kinase CK-MB (CK-2) Troponin I Total Protein Albumin Globulin Albumin/Globulin Ratio 01/22/17 01/22/17 01/22/17 02:39 03:09 06:18 WBC RBC Hgb Hct MCV MCH MCHC RDW Plt Count MPV Neut % (Auto) Lymph % (Auto) [place] % (Auto) Eos % (Auto) Baso % (Auto) Neut # (Auto) Lymph # (Auto) [place] # (Auto) Eos # (Auto) Baso # (Auto) Total Counted Immature Gran % Nucleated RBC % Immature Gran # Segmented Neutrophils Band Neutrophils Lymphocytes Monocytes Myelocytes Nucleated RBCs # Platelet Estimate Hypochromasia Elliptocytes Morphology Comment ABG pH 7.422 ABG pCO2 35.2 ABG pO2 190.0 H ABG HCO3 23.7 ABG Total CO2 19.4 L ABG O2 Saturation 99.4 ABG Base Excess -0.9 FiO2 50.00 Sodium Potassium Chloride Carbon Dioxide Anion Gap BUN Creatinine GFR Calculation BUN/Creatinine Ratio Glucose POC Glucose 343 H 188 H Calculated Osmolality Lactic Acid Calcium Total Bilirubin AST ALT Alkaline Phosphatase Total Creatine Kinase CK-MB (CK-2) Troponin I Total Protein Albumin Globulin Albumin/Globulin Ratio 01/22/17 01/22/17 01/22/17 06:45 06:45 09:00 WBC 27.4 H D RBC 4.82 Hgb 14.8 Hct 46.2 MCV 95.9 MCH 31 MCHC 32.0 RDW 14.0 Plt Count 208 MPV 11.3 Neut % (Auto) 79.0 H Lymph % (Auto) 2.1 L [place] % (Auto) 12.4 Eos % (Auto) 0.0 Baso % (Auto) 0.2 Neut # (Auto) 21.6 H Lymph # (Auto) 0.6 L [place] # (Auto) 3.4 H Eos # (Auto) 0.0 Baso # (Auto) 0.1 Total Counted 100 Immature Gran % 6.3 Nucleated RBC % 0.1 Immature Gran # 1.71 Segmented Neutrophils 82 Band Neutrophils 2 Lymphocytes 3 L Monocytes 12 Myelocytes 1 Nucleated RBCs # 0.02 Platelet Estimate Normal Hypochromasia 1+ Elliptocytes Few Morphology Comment ABG pH ABG pCO2 ABG pO2 ABG HCO3 ABG Total CO2 ABG O2 Saturation ABG Base Excess FiO2 Sodium 141 145 Potassium 7.4 H* D 7.1 H* Chloride 102 103 Carbon Dioxide 23 24 Anion Gap 23.4 H 25.1 H BUN 107 H 103 H Creatinine 2.60 H 2.70 H GFR Calculation 22 21 BUN/Creatinine Ratio 41.00 H 38.00 H Glucose 145 H 331 H POC Glucose Calculated Osmolality 317.3 H 332.7 H Lactic Acid 7.9 H Calcium 8.1 L 7.7 L Total Bilirubin 2.10 H 1.70 H AST 3226 H 6657 H ALT 3708 H 7657 H Alkaline Phosphatase 130 H 102 Total Creatine Kinase 456 H D CK-MB (CK-2) 3.5 Troponin I 2.650 H D Total Protein 5.8 L 3.5 L Albumin 2.7 L 1.6 L Globulin 3.1 1.9 L Albumin/Globulin Ratio 0.8 L 0.8 L - Diagnostic Findings Procedure: Chest x-ray: report reviewed by me - EKG EKG results: interpreted by me EKG shows: bradycardia Quality Measures - VTE Deep Vein Thrombosis/Pulmonary Embolism Present on Admission: No Specialty Discharge - Follow Up or Referrals Follow up with: Fransico Eller MD [Physician] - (With her mechanical developer prover in [place] or follow-up with [place] or 1 of the [facility] mechanical developer prover in about 2-4 weeks after the patient gets out of the hospital--whatever is her and her 's preference is okay) <Anna Marie Crump - Last Filed: 01/22/17 13:53> Assessment and Plan (1) Heart failure, systolic and diastolic, acute on chronic Status: Acute Current Visit: Yes (2) Acute respiratory failure Status: Acute Current Visit: Yes (3) Hypertension Status: Chronic Current Visit: Yes (4) Diabetes Status: Chronic Current Visit: Yes (5) COPD (chronic obstructive pulmonary disease) Status: Chronic Current Visit: Yes (6) History of atrial fibrillation Status: Chronic Current Visit: Yes (7) History of depression Status: Acute Current Visit: Yes (8) Elevated LFTs Status: Acute Current Visit: Yes (9) Elevated brain natriuretic peptide (BNP) level Status: Acute Current Visit: Yes (10) Elevated troponin Status: Chronic Current Visit: Yes Cardiology - PN: Subj Interval history: I have personally interviewed and evaluated the patient, reviewed the chart and discussed medical decision-making with Practitioner Tia. I have read this note and agree with her documentation here in. The patient has had an acutely worsening with abrupt hypotension, renal failure, liver injury. There is associated extreme hyperkalemia with clinical consequences of arrhythmia and a wide complex rhythm. As potassium has been treated the rhythm has returned to normal sinus rhythm with a more narrow complex. I recommend continuing the supportive measures for now. Exam (Progress Note) - Constitutional Vitals: Period Temp Pulse Resp BP Sys/Johnson Pulse Ox Last 24 Hr 96.3 F-98.9 F 45-88 7-32 40-174/00-115 90-100 Result/EKG - Labs CBC & BMP: 01/22/17 09:00 01/22/17 09:00 Labs: Laboratory Results - last 24 hr 01/21/17 01/21/17 01/22/17 18:12 23:43 02:39 WBC RBC Hgb Hct MCV MCH MCHC RDW Plt Count MPV Neut % (Auto) Lymph % (Auto) [place] % (Auto) Eos % (Auto) Baso % (Auto) Neut # (Auto) Lymph # (Auto) [place] # (Auto) Eos # (Auto) Baso # (Auto) Total Counted Immature Gran % Nucleated RBC % Immature Gran # Segmented Neutrophils Band Neutrophils Lymphocytes Monocytes Myelocytes Nucleated RBCs # Platelet Estimate Hypochromasia Ovalocytes [place] Cells Elliptocytes Morphology Comment ABG pH 7.422 ABG pCO2 35.2 ABG pO2 190.0 H ABG HCO3 23.7 ABG Total CO2 19.4 L ABG O2 Saturation 99.4 ABG Base Excess -0.9 FiO2 50.00 Sodium Potassium Chloride Carbon Dioxide Anion Gap BUN Creatinine GFR Calculation BUN/Creatinine Ratio Glucose POC Glucose 182 H 236 H Calculated Osmolality Lactic Acid Calcium Total Bilirubin AST ALT Alkaline Phosphatase Total Creatine Kinase CK-MB (CK-2) Troponin I Total Protein Albumin Globulin Albumin/Globulin Ratio Amylase Lipase 01/22/17 01/22/17 01/22/17 03:09 06:18 06:45 WBC 27.4 H D RBC 4.82 Hgb 14.8 Hct 46.2 MCV 95.9 MCH 31 MCHC 32.0 RDW 14.0 Plt Count 208 MPV 11.3 Neut % (Auto) 79.0 H Lymph % (Auto) 2.1 L [place] % (Auto) 12.4 Eos % (Auto) 0.0 Baso % (Auto) 0.2 Neut # (Auto) 21.6 H Lymph # (Auto) 0.6 L [place] # (Auto) 3.4 H Eos # (Auto) 0.0 Baso # (Auto) 0.1 Total Counted 100 Immature Gran % 6.3 Nucleated RBC % 0.1 Immature Gran # 1.71 Segmented Neutrophils 82 Band Neutrophils 2 Lymphocytes 3 L Monocytes 12 Myelocytes 1 Nucleated RBCs # 0.02 Platelet Estimate Normal Hypochromasia 1+ Ovalocytes [place] Cells Elliptocytes Few Morphology Comment ABG pH ABG pCO2 ABG pO2 ABG HCO3 ABG Total CO2 ABG O2 Saturation ABG Base Excess FiO2 Sodium Potassium Chloride Carbon Dioxide Anion Gap BUN Creatinine GFR Calculation BUN/Creatinine Ratio Glucose POC Glucose 343 H 188 H Calculated Osmolality Lactic Acid Calcium Total Bilirubin AST ALT Alkaline Phosphatase Total Creatine Kinase CK-MB (CK-2) Troponin I Total Protein Albumin Globulin Albumin/Globulin Ratio Amylase Lipase 01/22/17 01/22/17 01/22/17 06:45 09:00 09:00 WBC 27.8 H RBC 3.28 L D Hgb 10.2 L D Hct 31.8 L MCV 97.0 MCH 31 MCHC 32.1 RDW 14.0 Plt Count 144 D MPV 11.8 Neut % (Auto) 76.3 H Lymph % (Auto) 3.3 L [place] % (Auto) 9.4 Eos % (Auto) 0.0 Baso % (Auto) 0.1 Neut # (Auto) 21.2 H Lymph # (Auto) 0.9 L [place] # (Auto) 2.6 H Eos # (Auto) 0.0 Baso # (Auto) 0.0 Total Counted 100 Immature Gran % 10.9 Nucleated RBC % 0.1 Immature Gran # 3.03 Segmented Neutrophils 84 Band Neutrophils 3 Lymphocytes 7 L Monocytes 6 Myelocytes Nucleated RBCs # 0.03 Platelet Estimate Normal Hypochromasia Slight Ovalocytes Slight [place] Cells Slight Elliptocytes Morphology Comment ABG pH ABG pCO2 ABG pO2 ABG HCO3 ABG Total CO2 ABG O2 Saturation ABG Base Excess FiO2 Sodium 141 145 Potassium 7.4 H* D 7.1 H* Chloride 102 103 Carbon Dioxide 23 24 Anion Gap 23.4 H 25.1 H BUN 107 H 103 H Creatinine 2.60 H 2.70 H GFR Calculation 22 21 BUN/Creatinine Ratio 41.00 H 38.00 H Glucose 145 H 331 H POC Glucose Calculated Osmolality 317.3 H 332.7 H Lactic Acid 7.9 H Calcium 8.1 L 7.7 L Total Bilirubin 2.10 H 1.70 H AST 3226 H 6657 H ALT 3708 H 7657 H Alkaline Phosphatase 130 H 102 Total Creatine Kinase 456 H D CK-MB (CK-2) 3.5 Troponin I 2.650 H D Total Protein 5.8 L 3.5 L Albumin 2.7 L 1.6 L Globulin 3.1 1.9 L Albumin/Globulin Ratio 0.8 L 0.8 L Amylase Lipase 01/22/17 01/22/17 09:47 10:00 WBC RBC Hgb Hct MCV MCH MCHC RDW Plt Count MPV Neut % (Auto) Lymph % (Auto) [place] % (Auto) Eos % (Auto) Baso % (Auto) Neut # (Auto) Lymph # (Auto) [place] # (Auto) Eos # (Auto) Baso # (Auto) Total Counted Immature Gran % Nucleated RBC % Immature Gran # Segmented Neutrophils Band Neutrophils Lymphocytes Monocytes Myelocytes Nucleated RBCs # Platelet Estimate Hypochromasia Ovalocytes [place] Cells Elliptocytes Morphology Comment ABG pH 7.346 L ABG pCO2 31.2 L ABG pO2 117.0 H ABG HCO3 18.2 L ABG Total CO2 15.5 L ABG O2 Saturation 97.8 ABG Base Excess -7.7 L FiO2 Sodium Potassium Chloride Carbon Dioxide Anion Gap BUN Creatinine GFR Calculation BUN/Creatinine Ratio Glucose POC Glucose Calculated Osmolality Lactic Acid Calcium Total Bilirubin AST ALT Alkaline Phosphatase Total Creatine Kinase CK-MB (CK-2) Troponin I Total Protein Albumin Globulin Albumin/Globulin Ratio Amylase 387 H Lipase 831.0 H
[2017-01-22] MEDS ORDERED: ALBUMIN 5% 25 GM in PREMIX 1 EACH IV ONE ×2 (10:34→11:23)
[2017-01-22] MEDS ORDERED: SODIUM POLYSTYRENE SULFATE 15 GM/60 ML BOTTLE PO STA (10:36)
[2017-01-22 10:43] LABS: Band Neutrophils 3 % (0-10); Burr Cells Slight; Hypochromasia Slight; Lymphocytes 7 % (20-55); Ovalocytes Slight; Platelet Estimate Normal; Segmented Neutrophils 84 % (50-85); Total Cells Counted 100
--- NOTE | 2017-01-22 10:47 | Pulmonology Progress Note ---
Pulmonary - PN: Subj Interval history: This is a 66-year-old white female whom I was asked to see in pulmonary consultation for evaluation and treatment and management of mechanical ventilation on 01/15/2017 My impressions were. 1. Acute respiratory arrest requiring intubation mechanical ventilation. Etiology is undetermined. The patient takes losartan. I do not see any evidence of angioedema. There is a history of asthma. Presently the patient is wheeze free. She has elevated BNP and chest x-ray shows increased interstitial markings which may be secondary to congestive heart failure. Note that the patient may have underlying sarcoidosis. So far there is no definite pneumonia seen on chest x-ray. 2. History of atrial fib and possible history of heart disease 3. Bilateral hilar lymph node enlargement. This has the appearance of so- called "potato nodes". This is probably sarcoidosis and may explain some increased interstitial markings. Keep in mind other possibilities. 4. History of asthma 5. History of depression 6. History of high blood pressure 7. Elevated liver function test etiology undetermined 8. Previous cholecystectomy 9. Past history of thyroid surgery 10. See past history 01/16/2017. Today's chest x-ray shows cardiomegaly. Vascular tumor is plump in the perihilar areas patient has bilateral pleural effusions all compatible with pulmonary edema. Endotracheal tube is in good position. BNP is elevated at 546. ABGs on mechanical ventilation FiO2 of 50% shows a pH 7.53, PCO2 32, PO2 of 124 and a bicarb of 28.8. There are no positive cultures. At the present time it looks like the major problem is congestive heart failure. Echocardiogram showed mildly dilated left ventricle with mild left ventricular hypertrophy and an ejection fraction of 30-40% range. There was some slight septal thickening. Mild mitral regurgitation and moderate aortic valve regurgitation were present. Left atrium was enlarged. Right ventricle is normal. Pulmonary artery pressures were elevated at 52 mmHg. 01/17/2017. Chest x-ray shows pulmonary edema fairly large bilateral pleural effusions. BNP is elevated 901. Potassium is low at 3.3. Creatinine is 1.0. BUNs 25. White count 13,400. H&H 12.6/38.4. Patient is on stage to the weaning protocol but is not tolerating this particularly well. We need to improve her pulmonary edema. 01/18/2017. Today's chest x-ray shows good improvement in her pulmonary edema. This is about 85% resolved. This should help with her weaning protocol. ABGs on mechanical ventilation FiO2 50% showed pH 7.58, PCO2 of 33, PO2 143 and a bicarb of 30. Sodium is 149, potassium 3.5, BUN is 1.0 with BUN of 33. Natruretic peptide is fallen from 901-465 white count 16,300. H&H is 14.0 and 42.0. Sputum sent 01/15/2017 are growing a gram-positive cocci. ID and sensitivities are not yet available. 01/19/2017. This patient is beginning to make some good progress with her weaning protocol. On 01/18/2017 she was able to do 8 hours of CPAP and we are going to shoot for 10-12 hours a day. She is tolerating tube feedings well I am restarting her Lyrica. Her sputum cultures have grown methicillin sensitive staph aureus. She is on the correct antibiotic for this when allowing for her allergies. I want to avoid pain medicines if I can. ABGs on mechanical ventilation FiO2 50% shows a pH 7.53. PCO2 36.5. PO2 is 135. Bicarb is 32. Electrolytes are normal. Creatinine is 1.1. BUN is 59. White count was 15, 800 with 92% segs. H&H is 14.8/44.6. Natruretic peptide is dropped 222 01/20/2017. This 66-year-old white female is making good progress on weaning trials. She is on stage V and it looks like she will go to stage -VII. Chest x-ray shows no masses no infiltrates and no congestive heart failure. ABGs on mechanical ventilation FiO2 50% showed pH of 7.52, PCO2 34.5, PO2 of 167 and a bicarb of 29.7. Electrolytes are normal. Creatinine is 1.0. BUN is at 75 patient's on Lasix 40 mg daily and I will stop this. Her H&H is stable so I do not expect suspect GI bleed as a cause for the increased BUN. White blood cell count is elevated at 16,792's. Sputum's are growing staph aureus. 01/22/2017 this patient has developed acute renal failure. Creatinine on 2016 was 1.20. Today's creatinine is 2.70 along with this potassium is increased to 7.1. Patient developed cardiac rhythm this was treated aggressively and she is back in a sinus rhythm cardiology is on the case. Renal has been consulted. Earlier the patient was hypotensive and she is on pressor agents. She also has developed an acute marked elevation of transaminases. AST is 6657. ALT is 7657. No my exam her abdomen is tender and she groans when I press on any of the 4 quadrants. She does not display the same symptoms when I press on her extremities. Alkaline phosphatase is become elevated 456 and total bilirubin is 1.70. White count is jumped to 27, 800 with 73 segs. Platelets are 144,000. H&H is dropped acutely from 14.3/42.9 -10.2/31.8. Protein albumin and globulins are low at 3.5, 1.6, 1.9 respectively troponins are elevated 2.650. CPK is increased at 456. Chest x- ray is normal. KUB is pending. There are no positive cultures. Patient's on Spironolactone and this partially explains elevated potassium but I do not think it explains her acute renal failure and acute drop in H&H and increase in her white blood cell count. Her abdomen is tender and I suspect we have an acute process ongoing they are. I suspect she has a perforation in her GI tract with subsequent peritonitis. Additional lab is been ordered including amylase and lipase. Meanwhile the patient will remain on her weaning protocol which will probably have to interrupt for the present time. She is also on her physical therapy protocol but will probably have to interrupt that for the present time Physical exam. Vital signs. See below. No fever. Neck. Symmetrical no meningismus Lymphatics. No submandibular cervical supraclavicular or epitrochlear adenopathy. Chest. Stiff breath sounds Heart. Lateral PMI Abdomen. Rare bowel sounds Lower extremities. Mild chronic bilateral venous stasis changes. Neurologic. Moves all fours. The remainder the physical exam is Plan. 1. Echocardiogram. Ejection fraction 30-40% with mitral regurgitation pulmonary hypertension 2. Cardiology consultation 3. Agree with protocol antibiotics 4. Agree with steroids. 5. Daily chest x-ray, ABGs, lab 6. Mechanical ventilation weaning protocol 7. Physical therapy protocol while on mechanical ventilation. 8. Deep venous thrombophlebitis prevention protocol. 9. Proton pump inhibitor protocol. 10. See order 11. 01/16/2017. Have ordered Lasix 20 IV push every 8 hours. Will follow daily chest x-ray, ABGs, BMP, BNP 12. 01/17/2017. See today's note above. Patient is not doing well on the weaning protocol. We need better resolution of her pulmonary edema 13. 01/18/2017. Pulmonary edema is better. As this resolves we should be able to advance with the weaning protocol. 14. 01/19/2017. See above. 15. 01/22/2017. See my note above Exam (Progress Note) - Constitutional Vitals: Period Temp Pulse Resp BP Sys/Johnson Pulse Ox Last 24 Hr 96.3 F-98.9 F 60-88 8-32 64-174/00-115 94-100 Results - Labs CBC & BMP: 01/22/17 09:00 01/22/17 09:00 Specialty Discharge - Follow Up or Referrals Follow up with: Fransico Eller MD [Physician] - (With her [employer] system administrator in [place] or follow-up with me or 1 of the [facility] unix system administrator in about 2-4 weeks after the patient gets out of the hospital--whatever is her and her 's preference is okay)
[2017-01-22] MEDS ORDERED: SODIUM POLYSTYRENE SULFATE 15 GM/60 ML BOTTLE RECTAL ONE (10:56)
[2017-01-22] MEDS ORDERED: SODIUM CHLORIDE 0.9% 1,000 ML IV SCH (11:00)
--- NOTE | 2017-01-22 11:28 | XRay Report ---
XR chest 1V portable Indication: Respiratory failure Comparison: Chest x-ray dated January 22, 2017 Technique: Single frontal view of the chest Findings: Cardiomediastinal silhouette appears grossly unchanged. Lines and tubes appear grossly unchanged. Mildly increased left perihilar atelectasis. Osseous and surrounding soft tissue structures appear grossly unchanged. IMPRESSION: Mildly increased left perihilar atelectasis. PROCEDURE INTERPRETED AT [facility] DEPARTMENT OF RADIOLOGY Final Report Signed by: Dr Marcial Lr
--- NOTE | 2017-01-22 11:29 | XRay Report ---
XR KUB Indication: Abdominal tenderness. Abdomen one view: Only a portion of the abdomen is included on this exam due to apparent obesity. NG tube terminates mid stomach. Limited evaluation of the bowel shows no dilated small bowel. Some stool and gas is seen in the colon. Impression: No bowel obstruction evident. Nonspecific bowel gas pattern. PROCEDURE INTERPRETED AT [facility] DEPARTMENT OF RADIOLOGY Final Report Signed by: Finesse Aparicio M.D.
[2017-01-22] MEDS ORDERED: MORPHINE 2 MG/1 ML SYRINGE IV PRN ×2 (11:51→11:52)
[2017-01-22 12:27] VITALS: BP 40/36
--- NOTE | 2017-01-22 13:44 | Nephrology Consult Note ---
History of Present Illness Chief complaint: Pt referred for hyperkalemia History of present illness: Ms. Rivers is a 66 year old female with sepsis and hyperkalemia. Nephrology consulted. Pt was maxed on three pressors with continued hypotension. K 7.4, given 30gms kayexalate x 2 orally. Repeat K 7.1. Surgery consulted for dialysis catheter placement. Kayexalate retention enema ordered by me and given, pending catheter placement. In the interim, the patient was made a DNR and comfort care measures only. Pt is premorbid. Home Medications Medication Instructions Recorded Confirmed Type Albuterol Sulfate [Proair HFA] 90 mcg PO DIRECTED 01/14/17 01/14/17 History Carvedilol [Coreg] 12.5 mg PO BID 01/14/17 01/14/17 History Diazepam Tab [Valium Tab] 10 mg PO DAILY 01/14/17 01/14/17 History Duloxetine HCl [Cymbalta] 60 mg PO DAILY 01/14/17 01/14/17 History Eszopiclone [Lunesta] 1 mg PO DAILY 01/14/17 01/14/17 History Fluconazole 200 mg PO DAILY 01/14/17 01/14/17 History HYDROcodone/ACETAMIN 10-325 [[place] 10 - 325 mg PO BID 01/14/17 01/14/17 History 10-325] Hydroxychloroquine [Plaquenil] 200 mg PO DAILY 01/14/17 01/14/17 History Losartan Potassium 12.5 mg PO DAILY 01/14/17 01/14/17 History Oxybutynin Chloride [Oxybutynin 10 mg PO DAILY 01/14/17 01/14/17 History Chloride ER] Pregabalin [Lyrica] 75 mg PO TID 01/14/17 01/14/17 History predniSONE TAB [PredniSONE] 20 mg PO QOTHER DAY 01/14/17 01/14/17 History traZODone [Desyrel] 50 mg PO BEDTIME 01/14/17 01/14/17 History Allergies Allergy/AdvReac Type Severity Reaction Status Date / Time Iodinated Contrast Media - Allergy ITCHING Verified 01/14/17 19:10 IV Dye moxifloxacin Allergy ITCHING Verified 01/14/17 19:10 Penicillins Allergy ITCHING Verified 01/14/17 19:10 Sulfa (Sulfonamide Allergy ITCHING Verified 01/14/17 19:10 Antibiotics) sulfamethoxazole Allergy ITCHING Verified 01/14/17 19:10 trimethoprim Allergy ITCHING Verified 01/14/17 19:10 Medical,Surgical,& Family Hx - Medical History Cardio: History of: Cardiac Dysrhythmia (atrial fibrillation), CHF, Hypertension , Cardiovascular Problems Psychological: History of: Depression Endocrine: No history of: Diabetes Mellitus (IDDM) Rheumatology: History of;: Rheumatological Problems ( states she has lupus) Respiratory: History of: COPD - Surgical History Orthopedic Surgeries: Surgical HX of;: Orthopedic Surgery (knee surgery in 2012) - Family History Family History: Reports;: Family Hypertension - Social History Smoking Status: Unknown if ever smoked Frequency of Alcohol Use: Occasionally Type of Drug Use: Unknown Exam - Vital Signs Vital signs: Period Temp Pulse Resp BP Sys/Johnson Pulse Ox Last 24 Hr 96.3 F-98.9 F 45-88 7-32 40-174/00-115 90-100 - General Appearance General appearance: chronically ill, intubated EENT: ATNC, mucous membranes dry Neck: no JVD, no thyromegaly Respiratory: no scoliosis, clear Cardiology: no murmurs, no edema Gastrointestinal: absent bowel sounds, no guarding Integumentary: no rash, cool/clammy Neurologic: obtunded Musculoskeletal: no deformities, no erythema Results - Labs CBC & BMP: 01/22/17 09:00 01/22/17 09:00 Assessment and Plan (1) NATALI (acute kidney injury) Problem details: Due to hypotensive/ischemic ATN. Status: Acute Assessment and plan: Premorbid. Current Visit: Yes (2) Acute hyperkalemia Problem details: Given kayexalate retention enema. Comfort care only now. Status: Acute Current Visit: Yes (3) Sepsis Status: Acute Current Visit: Yes Specialty Discharge - Follow Up or Referrals Follow up with: Fransico Eller MD [Physician] - (With her regulatory analyst in [place] or follow-up with me or 1 of the [facility] regulatory analyst in about 2-4 weeks after the patient gets out of the hospital--whatever is her and her 's preference is okay)
--- NOTE | 2017-01-22 14:43 | Discharge Summary ---
Hospital Course - Hospital Course Hospital Course: Ms. Rivers is a 66 year old female with a history of A. Fibrillation, CHF, IDDM, COPD who presented with worsening SOB and was subsequently intubated and admitted to the ICU.She was started on IV antibiotics, nebs treatment, steroids. Pulmonology was consulted. Patient was on lasartan but there was no evidence of angioedema.She had elevated BNP and chest x-ray shows increased interstitial markings which may be secondary to congestive heart failure.No definite pneumonia on CXR Note that the patient may have underlying sarcoidosis. Her troponin was also elevated. She also received some Lasix, cardiology was consulted.Head CT without acute abnormality seen. CT chest showed no evidence of PE but a dependent atelectatic parenchymal consolidation in either lower lobe. Small to mederate left greater than right pleural effusion.Echocardiogram showed mildly dilated left ventricle with mild left ventricular hypertrophy and an ejection fraction of 30-40% range. There was some slight septal thickening. Mild mitral regurgitation and moderate aortic valve regurgitation were present. Left atrium was enlarged. Right ventricle is normal. Pulmonary artery pressures were elevated at 52 mmHg.Her elevated Liver enzymes were thought to be secondary to HF. Hepatitis panel is negative, levels were monitored.Cardiology added Entresto, Aldactone to her heart failure regime.No recurrence of atrial fibrillation since admission. She remained in a sinus rhythm.She had a transient bradycardia and her Coreg was reduced. BC&UC were negative.She was stable and doing well on her weaning parameters up until overnight when her blood pressure miguel and she was given a dose of hydralazine after which the blood pressure started falling.She was started on pressors, this am, her blood pressure was worse, her labs showed a markedly elevated potassium of 7.4 with a BUN/Cr of 107/2.6, elevated WBC. She was bolused with IVF,her antibiotics were broadened, given some calcium gluconate, bicarb, kayexalate, insulin and dextrose water. Nephrology was stat consulted. Cardiology and Pulmonology came by. She was also started on Mateusz, she had maxed out on Levophed. She was have some dysrrhythmias, she was give amiodarone, her rates dropped and she was started on dopamine drip. Labs were drawn, potassium level still remained high at 7.1, she received more kayexalate, calucium gluconate, bicarb, insulin, D50. We also gave some albumin. We talked to her updating him of his deteriorating health status.He called other family members for support. He later came in to see patient and he wanted her to be a DNR and later asked to withdrawal care and place her on comfort care. Patient became apneic, pulseless, pupils were fixed and dilated. She was pronounced at 12.50. Critical time:8.30am-12.50 - Time spent with patient Time with patient DS: Greater than 30 minutes Diagnosis - Discharge Diagnosis (1) Acute respiratory failure Status: Acute (2) CHF (congestive heart failure) Status: Acute (3) Elevated LFTs Status: Acute (4) possible sepsis Status: Acute (5) Hypotensive episode Status: Acute (6) Dysrhythmias Status: Acute (7) Hyperkalemia Status: Acute (8) Acute renal failure Status: Acute (9) Shock liver Status: Acute Specialty Discharge - Follow Up or Referrals Follow up with: Fransico Eller MD [Physician] - (With her urban gardening specialist in [place] or follow-up with me or 1 of the [facility] urban gardening specialist in about 2-4 weeks after the patient gets out of the hospital--whatever is her and her 's preference is okay) Discharge Plan - Discharge Medications No Action Diazepam Tab [Valium Tab] 10 mg PO DAILY Carvedilol [Coreg] 12.5 mg PO BID Hydroxychloroquine [Plaquenil] 200 mg PO DAILY HYDROcodone/ACETAMIN 10-325 [[place] 10-325] 10 - 325 mg PO BID Fluconazole 200 mg PO DAILY Eszopiclone [Lunesta] 1 mg PO DAILY Duloxetine HCl [Cymbalta] 60 mg PO DAILY traZODone [Desyrel] 50 mg PO BEDTIME predniSONE TAB [PredniSONE] 20 mg PO QOTHER DAY Oxybutynin Chloride [Oxybutynin Chloride ER] 10 mg PO DAILY Albuterol Sulfate [Proair HFA] 90 mcg PO DIRECTED Losartan Potassium 12.5 mg PO DAILY Pregabalin [Lyrica] 75 mg PO TID - Follow Up or Referral Follow Up: Fransico Eller MD [Physician] - (With her urban gardening specialist in [place] or follow-up with me or 1 of the [facility] urban gardening specialist in about 2-4 weeks after the patient gets out of the hospital--whatever is her and her 's preference is okay) - Forms/Instructions Exam - Constitutional Vitals: Period Temp Pulse Resp BP Sys/Johnson Pulse Ox Last 24 Hr 96.3 F-98.9 F 45-88 7-32 40-174/00-115 90-100 Discharge Results Procedures and tests throughout hospitalization: Pending Orders 01/22/17 09:31 Blood Culture Stat 01/22/17 17:00 Troponin,CKMB & Ck Total Q8H 01/23/17 01:00 Troponin,CKMB & Ck Total Q8H 01/23/17 04:00 XR chest 1V portable IN AM ABG [Arterial Blood Gas] IN AM CMP [Comprehensive Metabolic Panel] IN AM 01/23/17 09:00 Troponin,CKMB & Ck Total Q8H 01/23/17 17:00 Troponin,CKMB & Ck Total Q8H 01/24/17 04:00 XR chest 1V portable IN AM ABG [Arterial Blood Gas] IN AM CMP [Comprehensive Metabolic Panel] IN AM 01/25/17 04:00 XR chest 1V portable IN AM ABG [Arterial Blood Gas] IN AM CMP [Comprehensive Metabolic Panel] IN AM Magnesium Routine Phosphorous Routine Prealbumin Routine Labs on day of discharge: Labs from last 24 hours 01/22/17 01/22/17 01/22/17 10:00 09:47 09:00 WBC 27.8 H RBC 3.28 L D Hgb 10.2 L D Hct 31.8 L MCV 97.0 MCH 31 MCHC 32.1 RDW 14.0 Plt Count 144 D MPV 11.8 Neut % (Auto) 76.3 H Lymph % (Auto) 3.3 L Quay % (Auto) 9.4 Eos % (Auto) 0.0 Baso % (Auto) 0.1 Neut # (Auto) 21.2 H Lymph # (Auto) 0.9 L Quay # (Auto) 2.6 H Eos # (Auto) 0.0 Baso # (Auto) 0.0 Total Counted 100 Immature Gran % 10.9 Nucleated RBC % 0.1 Immature Gran # 3.03 Segmented Neutrophils 84 Band Neutrophils 3 Lymphocytes 7 L Monocytes 6 Myelocytes Nucleated RBCs # 0.03 Platelet Estimate Normal Hypochromasia Slight Ovalocytes Slight Santos Cells Slight Elliptocytes Morphology Comment ABG pH 7.346 L ABG pCO2 31.2 L ABG pO2 117.0 H ABG HCO3 18.2 L ABG Total CO2 15.5 L ABG O2 Saturation 97.8 ABG Base Excess -7.7 L FiO2 Sodium Potassium Chloride Carbon Dioxide Anion Gap BUN Creatinine GFR Calculation BUN/Creatinine Ratio Glucose POC Glucose Calculated Osmolality Lactic Acid Calcium Total Bilirubin AST ALT Alkaline Phosphatase Total Creatine Kinase CK-MB (CK-2) Troponin I Total Protein Albumin Globulin Albumin/Globulin Ratio Amylase 387 H Lipase 831.0 H 01/22/17 01/22/17 01/22/17 09:00 06:45 06:45 WBC 27.4 H D RBC 4.82 Hgb 14.8 Hct 46.2 MCV 95.9 MCH 31 MCHC 32.0 RDW 14.0 Plt Count 208 MPV 11.3 Neut % (Auto) 79.0 H Lymph % (Auto) 2.1 L Quay % (Auto) 12.4 Eos % (Auto) 0.0 Baso % (Auto) 0.2 Neut # (Auto) 21.6 H Lymph # (Auto) 0.6 L Quay # (Auto) 3.4 H Eos # (Auto) 0.0 Baso # (Auto) 0.1 Total Counted 100 Immature Gran % 6.3 Nucleated RBC % 0.1 Immature Gran # 1.71 Segmented Neutrophils 82 Band Neutrophils 2 Lymphocytes 3 L Monocytes 12 Myelocytes 1 Nucleated RBCs # 0.02 Platelet Estimate Normal Hypochromasia 1+ Ovalocytes [place] Cells Elliptocytes Few Morphology Comment ABG pH ABG pCO2 ABG pO2 ABG HCO3 ABG Total CO2 ABG O2 Saturation ABG Base Excess FiO2 Sodium 145 141 Potassium 7.1 H* 7.4 H* D Chloride 103 102 Carbon Dioxide 24 23 Anion Gap 25.1 H 23.4 H BUN 103 H 107 H Creatinine 2.70 H 2.60 H GFR Calculation 21 22 BUN/Creatinine Ratio 38.00 H 41.00 H Glucose 331 H 145 H POC Glucose Calculated Osmolality 332.7 H 317.3 H Lactic Acid 7.9 H Calcium 7.7 L 8.1 L Total Bilirubin 1.70 H 2.10 H AST 6657 H 3226 H ALT 7657 H 3708 H Alkaline Phosphatase 102 130 H Total Creatine Kinase 456 H D CK-MB (CK-2) 3.5 Troponin I 2.650 H D Total Protein 3.5 L 5.8 L Albumin 1.6 L 2.7 L Globulin 1.9 L 3.1 Albumin/Globulin Ratio 0.8 L 0.8 L Amylase Lipase 01/22/17 01/22/17 01/22/17 06:18 03:09 02:39 WBC RBC Hgb Hct MCV MCH MCHC RDW Plt Count MPV Neut % (Auto) Lymph % (Auto) Quay % (Auto) Eos % (Auto) Baso % (Auto) Neut # (Auto) Lymph # (Auto) Quay # (Auto) Eos # (Auto) Baso # (Auto) Total Counted Immature Gran % Nucleated RBC % Immature Gran # Segmented Neutrophils Band Neutrophils Lymphocytes Monocytes Myelocytes Nucleated RBCs # Platelet Estimate Hypochromasia Ovalocytes Santos Cells Elliptocytes Morphology Comment ABG pH 7.422 ABG pCO2 35.2 ABG pO2 190.0 H ABG HCO3 23.7 ABG Total CO2 19.4 L ABG O2 Saturation 99.4 ABG Base Excess -0.9 FiO2 50.00 Sodium Potassium Chloride Carbon Dioxide Anion Gap BUN Creatinine GFR Calculation BUN/Creatinine Ratio Glucose POC Glucose 188 H 343 H Calculated Osmolality Lactic Acid Calcium Total Bilirubin AST ALT Alkaline Phosphatase Total Creatine Kinase CK-MB (CK-2) Troponin I Total Protein Albumin Globulin Albumin/Globulin Ratio Amylase Lipase 01/21/17 01/21/17 23:43 18:12 WBC RBC Hgb Hct MCV MCH MCHC RDW Plt Count MPV Neut % (Auto) Lymph % (Auto) Quay % (Auto) Eos % (Auto) Baso % (Auto) Neut # (Auto) Lymph # (Auto) Quay # (Auto) Eos # (Auto) Baso # (Auto) Total Counted Immature Gran % Nucleated RBC % Immature Gran # Segmented Neutrophils Band Neutrophils Lymphocytes Monocytes Myelocytes Nucleated RBCs # Platelet Estimate Hypochromasia Ovalocytes [place] Cells Elliptocytes Morphology Comment ABG pH ABG pCO2 ABG pO2 ABG HCO3 ABG Total CO2 ABG O2 Saturation ABG Base Excess FiO2 Sodium Potassium Chloride Carbon Dioxide Anion Gap BUN Creatinine GFR Calculation BUN/Creatinine Ratio Glucose POC Glucose 236 H 182 H Calculated Osmolality Lactic Acid Calcium Total Bilirubin AST ALT Alkaline Phosphatase Total Creatine Kinase CK-MB (CK-2) Troponin I Total Protein Albumin Globulin Albumin/Globulin Ratio Amylase Lipase DS: Provider Date of admission: 01/14/17 19:39 Primary care physician: . No PCP Attending physician on admission: Coby Francis MD Consults: 01/14/17 20:24 Consult to Pharmacy [CONS] Routine Reason for Pharmacy Consult: Adjust Meds Renal Funct 01/15/17 08:13 Consult to Physician [CONS] Routine Comment: Consulting Provider: Consult to Specialist Group: Cardiology When should Consulting Provider be notified: Now 01/15/17 08:48 Consult to Physician [CONS] Routine Comment: Consulting Provider: Yamil Burrows Consulting Provider Notified: Yes When should Consulting Provider be notified: Now Person Notified: Dr. Burrows Date Notified: 01/15/17 Time Notified: 08:50 Consult Notification Comment: Notified of consult 01/22/17 09:00 Consult to Physician [CONS] Routine Comment: Consulting Provider: Ethan Gibson 01/22/17 10:51 Consult to Physician [CONS] Routine Comment: Consulting Provider: Dilan Jama Person Notified: dr jama Date Notified: 01/22/17 Time Notified: 10:51 Consult Notification Comment: notified of consult for HD catheter Discharging clinician: Coby Francis MD
== END 2017-01-22 12:50 | disposition expired | DRG 207 ==
LOC: N.ED 18:51 → N.EDINP 19:39 → N.ICU 20:09
PROVIDERS: ADMIT Internal Medicine; ATTEND Internal Medicine